=== PATIENT | female | born 1970 | race Caucasian/White ===

== ENCOUNTER 2018-08-09 18:01 | Emergency (ER) | payer SELFPAY ==
[~2018-08-09 18:01] MED LIST: Iopamidol 370 76% 100 ML VIAL ONE
--- NOTE | 2018-08-09 18:32 | RAD ---
ONE VIEW CHEST: 08/09/18 HISTORY: Two days of shortness of breath. COMPARISON: 12/17/06. FINDINGS: Slight elongation of the aorta. Normal cardiac silhouette. The pulmonary vessels and hilum are normal . Costophrenic angles are clear. No mass. No consolidation. No pneumothorax or osseous abnormality. IMPRESSION: No acute cardiopulmonary process. POS: [facility]
[2018-08-09 18:54] LABS: Hemoglobin 15.6 g/dL (12.0-16.0); Mean Corpuscular HGB CONC 34.8 g/dL (32.0-36.0); Mean Corpuscular Hemoglobin 33.6 pg (27.0-31.0); Mean Corpuscular Volume 96.6 fL (78.0-98.0); Mean Platelet Volume 7.7 fL (7.4-10.4); Platelet Count 274 thou/uL (130-400); RBC Distribution Width 12.8 % (11.5-14.5); Red Blood Cell (RBC) Count 4.65 mill/uL (4.20-5.40); White Blood Cell (WBC) Count 15.3 thou/uL (4.8-10.8)
[2018-08-09 19:14] LABS: Band 2 % (5-11); Lymphocytes 33 % (21-51); MDiff Complete? YES; Monocytes 6 % (0-10); Neutrophil 56 % (42-75); Platelet Morphology Comment Appears Adequate; RBC Morphology Normal
[2018-08-09 19:31] LABS: ALT (SGPT) 24 U/L (8-55)
[2018-08-09] MEDS ORDERED: Lorazepam 2 MG/ML VIAL ONE (19:39)
[2018-08-09 19:53] LABS: Amphetamine Not Detected (NotDetected); Barbiturates Screen Not Detected (NotDetected); Benzodiazepine Screen Not Detected (NotDetected); Cocaine Metabolite Screen Not Detected (NotDetected); Medtox Control Line Valid? VALID (VALID); Medtox Reader # READER 4; Methadone Not Detected (NotDetected); Methamphetamine Not Detected (NotDetected); Opiate Screen Detected (NotDetected); Oxycodone Screen Not Detected (NotDetected); Phencyclidine (PCP) Not Detected (NotDetected); THC/Cannabinoid Screen Not Detected (NotDetected); Tricyclic Screen Not Detected (NotDetected)
[2018-08-09 19:53] LABS: AST (SGOT) 39 U/L (5-34); Albumin 4.3 g/dL (3.5-5.0); Alkaline Phosphatase 82 U/L (40-150); Anion Gap 20 mmol/L (10-20); BUN (Urea Nitrogen) 20 mg/dL (7.0-18.7); Bilirubin, Total 0.6 mg/dL (0.2-1.2); Calc. Creatinine Clearance 0 mL/min (70-130); Calcium 10.6 mg/dL (7.8-10.44); Carbon Dioxide 25 mmol/L (22-29); Chloride 95 mmol/L (98-107); Estimated GFR-MDRD 46; Globulin 4.2 g/dL (2.4-3.5); Glucose 115 mg/dL (70-105); Potassium 3.5 mmol/L (3.5-5.1); Protein, Total 8.5 g/dL (6.0-8.3); Sodium 136 mmol/L (136-145)
--- NOTE | 2018-08-09 19:56 | CT ---
CT ANGIOGRAM OF THE CHEST: 08/09/18 HISTORY: Tachycardia and dyspnea. COMPARISON: None. TECHNIQUE: CT angiogram of the chest is performed in the axial plane. Three dimensional reformatted images are s ubmitted for interpretation. FINDINGS: No mediastinal mass, lymphadenopathy or hematoma. Heart size is within normal limits. No pericardial effusion. The descending thoracic aorta and upper abdominal aorta have a normal caliber. No periaorti c fat stranding. The visualized upper solid abdominal viscera is unremarkable. Hepatic steatosis with areas of fatty s paring are suspected. Trachea and central bronchi are patent. No suspicious consolidation, pleural effusions or pneumothorax. 5 mm nodule in the superior segment o f the right lower lobe, 4 mm nodule in the superior segment of the left lower lobe. 7 mm ground glass opacity in the superior segment of the left lower lobe. Adequate contrast opacification of the pulmonary arterial system to the level of the segmental arteri es. No filling defect to suggest thromboembolism. IMPRESSION: 1. No evidence of pulmonary artery embolism. 2. Lung nodule that is described above. Correlation made with a CT from 12/18/06 demonstrates a stable nodule in the superior segment of the r ight lower lobe. Ground glass opacity and nodule in the left lower lobe were not present on a previou s examination. Code LN POS: [facility]
== END 2018-08-09 21:47 | disposition home or self-care (01) ==
LOC: ERS 18:01
DX: F41.9 Anxiety disorder, unspecified (principal); F45.8 Other somatoform disorders; I10 Essential (primary) hypertension; E78.5 Hyperlipidemia, unspecified; F32.9 Major depressive disorder, single episode, unspecified; F17.290 Nicotine dependence, other tobacco product, uncomplicated; Z79.899 Other long term (current) drug therapy
CPT/HCPCS: 71045; 71275; 80053; 80306; 85025; 93005; 96361; 96374; J2060; Q9967

== ENCOUNTER 2019-03-23 18:08 | Inpatient (IN) | payer SELFPAY ==
[2019-03-23 18:58] LABS: #Lymphocytes 3.9 thou/uL (1.20-3.40); #Monocytes 0.7 thou/uL (0.11-0.59); #Neutrophils 4.1 thou/uL (1.40-6.50); %Basophils 0.4 % (0.0-1.0); %Eosinophils 0.2 % (0.0-10.0); %Lymphocytes 44.6 % (21.0-51.0); %Monocytes 7.7 % (0.0-10.0); %Neutrophils 47.1 % (42.0-75.0); Hemoglobin 16.8 g/dL (12.0-16.0); Mean Corpuscular HGB CONC 33.7 g/dL (32.0-36.0); Mean Corpuscular Hemoglobin 34.8 pg (27.0-31.0); Platelet Count 231 thou/uL (130-400); Red Blood Cell (RBC) Count 4.81 mill/uL (4.20-5.40); White Blood Cell (WBC) Count 8.6 thou/uL (4.8-10.8)
[2019-03-23] MEDS ORDERED: Ondansetron PF 4 MG/2 ML Vial ONE (19:04)
[2019-03-23 19:05] LABS: ALT (SGPT) 323 U/L (8-55); AST (SGOT) 635 U/L (5-34); Albumin 3.3 g/dL (3.5-5.0); Alkaline Phosphatase 246 U/L (40-110); Anion Gap 21 mmol/L (10-20); BUN (Urea Nitrogen) 15 mg/dL (7.0-18.7); Bilirubin, Total 3.6 mg/dL (0.2-1.2); Calc. Creatinine Clearance 0 mL/min (70-130); Calcium 9.6 mg/dL (7.8-10.44); Carbon Dioxide 23 mmol/L (22-29); Chloride 89 mmol/L (98-107); Estimated GFR-MDRD 59; Globulin 4.1 g/dL (2.4-3.5); Glucose 110 mg/dL (70-105); Potassium 3.9 mmol/L (3.5-5.1); Protein, Total 7.4 g/dL (6.0-8.3); Sodium 129 mmol/L (136-145)
[2019-03-23 19:19] LABS: Phosphorus 2.8 mg/dL (2.3-4.7)
[2019-03-23 19:33] LABS: CKMB 0.7 ng/mL (0-6.6)
[2019-03-23 19:38] LABS: T4 5.3 ug/dL (4.87-11.72); Thyroid Stimulating Hormone 3.4985 uIU/mL (0.35-4.94)
[2019-03-23] MEDS ORDERED: Promethazine HCl 25 MG/ML VIAL ONE (19:42)
--- NOTE | 2019-03-23 19:50 | RAD ---
PORTABLE CHEST: HISTORY: Tachycardia. COMPARISON: 08/09/2018 FINDINGS: Heart size and mediastinum are within normal limits. The aorta is mildly tortuous. The lungs are shaquille r of infiltrates. No significant bony findings. IMPRESSION: No active intrathoracic disease. POS: [facility]
[2019-03-23 19:58] LABS: Magnesium 1.6 mg/dL (1.6-2.6)
[2019-03-23 20:44] LABS: Bilirubin 1+ (Negative); Blood, Urine Negative (Negative); Clarity Clear (Clear); Glucose, Urine (Dipstick) Normal (Negative); Leukocyte Negative Leu/uL (Negative); Nitrite Negative (Negative); Protein, Urine (Dipstick) 20 mg/dL (Neg-Trace); Urobilinogen Normal mg/dL (Less than 2)
--- NOTE | 2019-03-23 21:04 | CT ---
CT CHEST AND ABDOMEN AND PELVIS: HISTORY: PO intolerance. Concern for cancer. COMPARISON: Radiographs of the chest from the same day. FINDINGS: The lungs are clear. No pneumothorax. No effusion. The shoulders are intact. The sternum and manubrium are intact. The thoracic and lumbar vertebrae are intact. No suspicious osteolytic or osteoblastic lesions. No ac quinten displaced rib fracture. Old left sided rib fractures. No mediastinal adenopathy. No pericardial effusion. Diffuse hepatic steatosis noted. Mild distention of the gallbladder. A few calcified splenic granulom as. The aortoiliac contour is nonaneurysmal. No dilated loops of large or small bowel. No retroperitoneal or periaortic adenopathy. There is a broad-based disk osteophyte complex at L1-L2 causing mild spinal canal narrowing. No hydronephrosis. No abnormal renal enhancing mass. IMPRESSION: 1. Diffuse hepatic steatosis. 2. No acute inflammatory process within the chest, abdomen or pelvis. 3. No evidence for a primary or metastatic malignancy. 4. High grade facet arthrosis of the lower lumbar spine. 5. Interval resolution of the previously described small pulmonary nodules. POS: [facility]
[2019-03-23] MEDS ORDERED: Aspirin Chewable 81 MG TAB ONE (21:16)
[2019-03-24] MEDS ORDERED: Ondansetron PF 4 MG/2 ML Vial IVP PRN (00:04)
[2019-03-24] MEDS ORDERED: Ondansetron ODT 4 MG TAB SL PRN (00:04)
[2019-03-24 00:07] VITALS: BMI 33.2
[2019-03-24] MEDS: Lactated Ringer's 1,000 ML IV SCH ×2 (00:35→09:35)
[2019-03-24 10:58] LABS: ALT (SGPT) 255 U/L (8-55); AST (SGOT) 474 U/L (5-34); Albumin 2.6 g/dL (3.5-5.0); Alkaline Phosphatase 186 U/L (40-110); Anion Gap 14 mmol/L (10-20); BUN (Urea Nitrogen) 10 mg/dL (7.0-18.7); Bilirubin, Total 4.6 mg/dL (0.2-1.2); Calc. Creatinine Clearance 96 mL/min (70-130); Calcium 8.3 mg/dL (7.8-10.44); Carbon Dioxide 27 mmol/L (22-29); Chloride 94 mmol/L (98-107); Estimated GFR-MDRD 56; Globulin 3.2 g/dL (2.4-3.5); Glucose 107 mg/dL (70-105); Potassium 3.9 mmol/L (3.5-5.1); Protein, Total 5.8 g/dL (6.0-8.3); Sodium 131 mmol/L (136-145)
[2019-03-24 13:25] LABS: Prothrombin Time 12.7 SEC (12.0-14.7)
[2019-03-24 13:53] LABS: Acetaminophen Less than 6.0 mcg/mL (10.0-30.0); Alcohol Less than 10 mg/dL (Less than 10); Iron 194 ug/dL (50-170); Iron Binding Capacity, Total 179 mcg/dL (265-497)
[2019-03-24 14:03] LABS: Ferritin 1361.58 ng/mL (10-291)
[2019-03-24 14:16] LABS: HBCM Index 0.06 S/CO (0-0.79); HBSAg Index 0.16 S/CO (0-0.99); Hep A IgM AB Non-Reactive (NonReactive); Hep B Surf Ag Non-Reactive S/CO (NonReactive); Hep C IgG Ab Non-Reactive (NonReactive); Hep C Index 0.14 S/CO (0-0.79); Hepatitis B Core IgM Abs Non-Reactive (NonReactive)
--- NOTE | 2019-03-24 15:44 | ULT ---
EXAM: Abdominal ultrasound complete: HISTORY: Nausea, vomiting, weight loss COMPARISON: Chest abdomen and pelvic CT, 03/23/2019 FINDINGS: Marked fatty changes in the liver with altered echogenicity and liver enlargement. Extensive sludge in the gallbladder with borderline thick walled but negative Raines's sign and no si gnificant pericholecystic fluid. The common bile duct is very poorly seen. No evidence for dilatation. Visualized pancreas: Unremarkable. Visualized abdominal aorta: Unremarkable. Visualized IVC: Unremarkable. Visualized spleen: Unremarkable. Visualized kidneys: No evidence for hydronephrosis or solid or cystic mass. No mass, abscess, adenopathy, or abnormal fluid collection or other acute process. IMPRESSION: Hepatomegaly with marked fatty changes. Prominent sludge in the gallbladder without evidence for gallstones or acute cholecystitis.
--- NOTE | 2019-03-24 16:58 | CON ---
DATE OF CONSULTATION: 03/24/2019 REQUESTING PHYSICIAN: Dr. Leonard. REASON FOR CONSULTATION: Weight loss and p.o. intolerance. HISTORY OF PRESENT ILLNESS: Lily Sanchez is a very pleasant 49-year-old woman with a history significant for hypertension and hyperlipidemia. She has undergone appendectomy and . She has depression. She does vape, but states alcohol use is rare, and she has not had any alcohol anytime recently. About a year ago, she started having gradual decline in appetite and early satiety. With these symptoms and declining oral intake, she has lost 60 to 70 pounds over the past year. Over the past 3-4 months, she has additionally started having postprandial generalized abdominal pain and nausea with early satiety, and for the past few weeks, she has been having vomiting every day. She also describes some dysphagia to solids for the past couple of months, feeling of the food hangs up in the upper esophagus, and she will occasionally regurgitate. She has not had any alcohol recently over this time. She denies any Tylenol use, though she will take ibuprofen occasionally. She has never undergone EGD or colonoscopy. She has never had any liver or gallbladder problems. Upon presentation, a CT of the abdomen and pelvis yesterday demonstrated fatty liver and mild gallbladder distention and diffuse splenic granulomas, but otherwise that was unremarkable. A chest x-ray showed no acute processes. However, her laboratory studies demonstrate significant LFT elevation with total bilirubin up to 4.6, AST 474, and ALT 255. These were slightly down this morning from yesterday. Albumin is only 2.6. An abdominal ultrasound has been ordered, but not yet performed. She currently tolerated a couple of bites of breakfast this morning. REVIEW OF SYSTEMS: Full review of systems including constitutional; head, eyes, ears, nose, and throat; GI; ; cardiovascular; respiratory; musculoskeletal; and neurologic systems is negative except as noted in the HPI. PAST MEDICAL HISTORY: 1. Hypertension. 2. Hyperlipidemia. 3. Appendectomy. 4. . 5. Depression. SOCIAL HISTORY: She does vape. Alcohol use is social, and there has been none recently. No drug use. FAMILY HISTORY: Her half sister has Crohn disease. ALLERGIES: NO KNOWN DRUG ALLERGIES. OUTPATIENT MEDICATIONS: 1. Benadryl 25 mg nightly. 2. Multivitamin daily. 3. Potassium chloride daily. 4. Lipitor 20 mg daily. 5. Amlodipine 10 mg daily. 6. Buspirone 10 mg b.i.d. PHYSICAL EXAMINATION: VITAL SIGNS: Temperature 99.0, pulse 100, blood pressure 117/68, and 93% oxygen saturation on room air. GENERAL: A 49-year-old woman, lying in bed comfortably, in no distress. SKIN: No jaundice. No rashes were palpable. EYES: No scleral icterus. Extraocular movements intact. ENT: Mucous membranes moist. No oral lesions. LYMPH: No submandibular or supraclavicular lymphadenopathy. THYROID: Nontender to palpation. HEART: Regular rate and rhythm. LUNGS: Clear to auscultation bilaterally. ABDOMEN: Nondistended. Bowel sounds are present. Soft. There is tenderness to palpation in the epigastrium and right upper quadrant, but no guarding or rebound tenderness. EXTREMITIES: No peripheral edema. VESSELS: Radial pulses 2+ bilaterally. NEUROLOGIC: Cranial nerves 2 through 12 intact bilaterally. No focal deficits. LABORATORY STUDIES: Total bilirubin was initially 3.6, now up to 4.6; alkaline phosphatase initially 246, now down to 186; AST initially 635, now down to 474; ALT initially 323, now down to 255; albumin is 2.6. BUN 10, creatinine 1.05, glucose 107, sodium 131, and potassium 3.9. WBC 8.6, hemoglobin 16.8, platelets 231, and MCV 103. Troponin 0.045 and CK-MB only 0.7. Urinalysis negative. TSH 3.49. Lipase 59. Looking back LFTs from 07/2018 were normal with just very mild elevation in AST at that time. IMAGING STUDIES: Chest x-ray shows no acute processes. On 03/23/2019, CT of the chest, abdomen, and pelvis demonstrates fatty liver, mild gallbladder distention, diffuse splenic granulomas, lumbar spine facet arthrosis, otherwise unremarkable exam. ASSESSMENT AND PLAN: 1. Elevated liver function tests. 2. Dysphagia. 3. Early satiety. 4. Vomiting. 5. Abnormal weight loss. Her constellation of symptoms is quite concerning. Notably, the CT scan was unrevealing, though I wonder about the mild gallbladder distention. The laboratory studies are significant for liver function test elevation. Consider [id number] cholecystitis, versus more chronic liver disease with compensation. We will await results of upcoming abdominal ultrasound. We will obtain further labs for liver workup, including viral hepatitis serologies, autoimmune markers, iron studies, ceruloplasmin, acetaminophen level, alcohol level. We will also get urine drug screen. Trend the LFTs daily. If the abdominal ultrasound is unremarkable and labs otherwise unrevealing, we could potentially consider bowel prep tomorrow for EGD and colonoscopy the following day. If it appears that she does have cholecystitis or other biliary abnormality, she might need surgical consultation. Thank you for the consultation. Please call anytime with questions or concerns. Job ID: [id number]
[2019-03-24 18:31] LABS: Troponin I Less than 0.010 ng/mL (< 0.028)
[2019-03-24 18:52] LABS: Amphetamine Not Detected (NotDetected); Barbiturates Screen Not Detected (NotDetected); Benzodiazepine Screen Detected (NotDetected); Cocaine Metabolite Screen Not Detected (NotDetected); Medtox Control Line Valid? VALID (VALID); Medtox Reader # READER 1; Methadone Not Detected (NotDetected); Methamphetamine Not Detected (NotDetected); Opiate Screen Not Detected (NotDetected); Oxycodone Screen Not Detected (NotDetected); Phencyclidine (PCP) Not Detected (NotDetected); THC/Cannabinoid Screen Not Detected (NotDetected); Tricyclic Screen Not Detected (NotDetected)
--- NOTE | 2019-03-24 19:14 | HP ---
CHIEF COMPLAINT: Nausea, vomiting, and not eating well, weight loss. HISTORY OF PRESENT ILLNESS: Ms. Sanchez is a 49-year-old female with past medical history of hypertension, anxiety disorder, came because of nausea and vomiting, which started recently and got worse to the point she is unable to keep anything down. The patient also says she has not been eating well for last one year, has lost weight gradually. Now, she did not have an abdominal pain, no fever, no headache. Feels weak secondary to not eating. The patient tried to eat and everything will come back up, so the patient came to the hospital. In the ER, the patient was seen and found to have sinus tachycardia as well as intractable nausea and vomiting. Initial CT scan of the abdomen did not reveal any pathology. The patient was also found to have markedly elevated LFTs, so the patient to was given IV fluid bolus and Phenergan. Admitted for further evaluation and management. The patient also had indeterminate troponin I. PAST MEDICAL HISTORY: 1. Hypertension. 2. Hyperlipidemia. 3. Anxiety disorder. 4. Weight loss. PAST SURGICAL HISTORY: Status post appendectomy, status post . CURRENT MEDICATIONS: The patient is on: 1. Benadryl 25 mg at bedtime p.r.n. 2. KCl 10 mEq daily. 3. Lipitor 20 mg at bedtime. 4. Amlodipine 10 mg daily. 5. BuSpar 10 mg b.i.d. ALLERGIES: NKDA. FAMILY HISTORY: Nothing contributory. SOCIAL HISTORY: Lives at home with family. No history of smoking. Drinks socially. REVIEW OF SYSTEMS: Unremarkable except for the nausea, vomiting, and weight loss. PHYSICAL EXAMINATION: GENERAL: The patient is alert, awake, oriented x3. VITAL SIGNS: Temperature 98, pulse 97, respiratory rate 20, blood pressure 100/ 60. HEENT: Head is normocephalic, atraumatic. Pupils are equal and reacting to light. NECK: Supple. No JVD. LUNGS: Bilateral air entry. No rales, no rhonchi. HEART: S1 and S2, regular. ABDOMEN: Soft. No distention. No tenderness. No organomegaly. Bowel sounds present. RECTAL: Deferred. CENTRAL NERVOUS SYSTEM: No focal deficits. LABORATORY DATA: CBC shows WBC 8.6, hemoglobin 16, hematocrit 49, platelets 231. Metabolic panel; sodium 129, potassium 3.9, chloride 89, CO2 of 23, BUN 10, creatinine 1, glucose 110. Troponin I 0.045. AST of 635, ALT 323, alkaline phos 246, total bilirubin 3.6. TSH was 3.49. Serum lipase 59. Urinalysis is negative. CT scan of the abdomen and pelvis unremarkable except hepatic steatosis andgallbladder sludge but no cholecystitis. Chest x-ray negative. EKG shows sinus tachycardia with heart rate of 100. No acute ST-T changes seen. ASSESSMENT: 1. Intractable nausea and vomiting. 2. Dysphagia. 3. Elevated liver function tests. 4. Fatty liver. 5. Protein calorie malnutrition with significant weight loss. 6. Hypertension by history. 7. Anxiety disorder. PLAN: 1. Vital signs q.4 hours. 2. Activity as tolerated. 3. Allergies, NKDA. 4. IV fluids, D5 half at 80 mL/h. 5. Continue home medications except BP medications. 6. Diet, n.p.o. after midnight. 7. Zofran p.r.n. 8. GI consult. Job ID: [id number] [facility]
[2019-03-24] MEDS: Dextrose 5 %-0.45 % NaCl 1,000 ML IV SCH (19:19)
[2019-03-24] MEDS: Ondansetron PF 4 MG/2 ML Vial SLOW IVP PRN (19:46)
[2019-03-24] MEDS: diphenhydrAMINE 25 MG CAP PO SCH (19:47)
[2019-03-24] MEDS: busPIRone HCl 10 MG TAB PO SCH (19:47)
[2019-03-24] MEDS: Atorvastatin Calcium 20 MG TAB PO SCH (19:47)
[2019-03-24 22:23] LABS: Troponin I 0.023 ng/mL (< 0.028)
[2019-03-25 06:13] LABS: ALT (SGPT) 220 U/L (8-55); AST (SGOT) 367 U/L (5-34); Albumin 2.5 g/dL (3.5-5.0); Alkaline Phosphatase 192 U/L (40-110); Anion Gap 13 mmol/L (10-20); BUN (Urea Nitrogen) 7 mg/dL (7.0-18.7); Calc. Creatinine Clearance 98 mL/min (70-130); Calcium 8.3 mg/dL (7.8-10.44); Carbon Dioxide 28 mmol/L (22-29); Chloride 100 mmol/L (98-107); Estimated GFR-MDRD 58; Globulin 2.9 g/dL (2.4-3.5); Glucose 124 mg/dL (70-105); Potassium 3.7 mmol/L (3.5-5.1); Protein, Total 5.4 g/dL (6.0-8.3); Sodium 137 mmol/L (136-145)
[2019-03-25 06:14] LABS: Lymphocytes 37 % (21-51); MDiff Complete? YES; Macrocytosis SLIGHT = 6-15 cells (100X) (0-5/hpf); Mean Corpuscular HGB CONC 33.9 g/dL (32.0-36.0); Mean Corpuscular Hemoglobin 35.7 pg (27.0-31.0); Mean Platelet Volume 8.1 fL (7.4-10.4); Monocytes 4 % (0-10); Neutrophil 59 % (42-75); Platelet Count 132 thou/uL (130-400); Platelet Morphology Comment Appears Adequate; RBC Distribution Width 12.8 % (11.5-14.5); Red Blood Cell (RBC) Count 3.65 mill/uL (4.20-5.40); White Blood Cell (WBC) Count 4.2 thou/uL (4.8-10.8)
[2019-03-25] MEDS: Dextrose 5 %-0.45 % NaCl 1,000 ML IV SCH ×2 (09:16→11:55)
[2019-03-25] MEDS: busPIRone HCl 10 MG TAB PO SCH ×2 (11:54→21:55)
--- NOTE | 2019-03-25 12:02 | NM ---
HEPATOBILIARY SCAN: HISTORY: Nausea and vomiting. Elevated LFTs. COMPARISON: No gallstones on ultrasound from the previous day. RADIOPHARMACEUTICAL: Technetium 99m mebrofenin 5 millicuries injected intravenously. FINDINGS: There is good tracer extraction by the liver with prompt excretion of the biliary tract and small bow el loops. The calculated gallbladder ejection fraction following a 30 minute, slow IV infusion of 1.8 mcg CCK m easured 6%. The patient was also pre-treated with 1.8 mcg of CCK 30 minutes prior to the injection of the radioph armaceutical. IMPRESSION: Chronic acalculous cholecystitis/gallbladder dyskinesia. POS: [facility]
--- NOTE | 2019-03-25 15:00 | PRG ---
DATE OF SERVICE: 03/25/2019 SUBJECTIVE: Ms. Sanchez is doing okay. She is tolerating a liquid diet. Yesterday's abdominal ultrasound demonstrated significant biliary sludge, though no cholelithiasis. No biliary dilation. There is some mild gallbladder thickening. HIDA scan from earlier today demonstrated low gallbladder ejection fraction of only 6% and the patient had significant pain with cholecystokinin administration. OBJECTIVE: VITAL SIGNS: Temperature 98.2, pulse 73, blood pressure 121/75, and 96% oxygen saturation on room air. GENERAL: No acute distress. HEART: Regular rate and rhythm. LUNGS: Clear to auscultation bilaterally. ABDOMEN: Bowel sounds present, soft, some mild tenderness to palpation in the upper abdomen. No guarding, rebound tenderness. EXTREMITIES: No peripheral edema. LABORATORY STUDIES: WBC down to 4.2, hemoglobin 13.0, platelets 132. INR 1.0. Sodium 137, potassium 3.7, BUN 7, creatinine 1.02, glucose 124, total bilirubin stable at 5.0, alkaline phosphatase down to 192, AST down to 367, ALT down to 220. Troponin 0.02. Albumin 2.5, ferritin is , iron 194, TIBC 179. Acetaminophen level is undetectable. Plasma alcohol level was undetectable. Urine tox screen is positive for benzodiazepines. Total IgG is normal at 1465. Viral hepatitis serologies are negative. Autoimmune markers are still pending. ASSESSMENT/PLAN: 1. Chronic cholecystitis with biliary sludge. 2. Elevated LFTs. 3. Chronic nausea and vomiting. This is a somewhat atypical presentation, but the labs and imaging results are all suggestive of chronic cholecystitis and biliary dyskinesia. I would recommend general surgical consultation for consideration of cholecystectomy. Intraoperative cholangiogram could be performed during surgery to assure no choledocholithiasis, though there appears to be no evidence of biliary dilation on current imaging. I think it would also be reasonable to obtain intraoperative liver biopsy, depending on operative findings, particularly if the gallbladder does not appear to inflamed. We are still waiting on autoimmune markers, but viral hepatitis serologies are negative. Job ID: [id number]
[2019-03-25] MEDS: Acetaminophen 325 MG TAB PO PRN (15:32)
[2019-03-25] MEDS: Ondansetron PF 4 MG/2 ML Vial SLOW IVP PRN (15:32)
--- NOTE | 2019-03-25 17:48 | CON ---
DATE OF CONSULTATION: 03/25/2019 CHIEF COMPLAINT: Nausea, vomiting, and abdominal pain. HISTORY OF PRESENT ILLNESS: This is a 49-year-old female, who was admitted to the medical service with a history of nausea, vomiting, elevated liver function tests. Dr. Reeder was consulted. Her workup has included negative hepatitis panel, negative abdominal ultrasound. She had a HIDA scan today, which showed low ejection fraction, but good uptake in the biliary tract all the way to the duodenum without obvious obstruction. Her bilirubin is up to 5. She gives no previous known history of liver disease, hepatitis. She notes occasional upper abdominal pain after greasy foods, but nothing severe. She has had significant weight loss of 70 pounds in the last year and states that she has early satiety. This has become more severe with nausea and vomiting in the last month. MEDICAL HISTORY: Hypertension, hyperlipidemia, and anxiety. SURGICAL HISTORY: Appendectomy and C-sections. MEDICINES: , Lipitor, amlodipine, and BuSpar. ALLERGIES: NO KNOWN DRUG ALLERGIES. SOCIAL HISTORY: Drinks occasionally. No smoking. REVIEW OF SYSTEMS: Ten-system review of systems is otherwise negative unless described above. PHYSICAL EXAMINATION: VITAL SIGNS: Blood pressure is 116/74, pulse 85, respirations 16. She is afebrile. HEENT: Sclerae anicteric. Oropharynx clear. NECK: No lymphadenopathy. CHEST: Clear. HEART: Regular rate and rhythm. ABDOMEN: Soft. No significant tenderness. She guards a little bit in the right upper quadrant. No abdominal or inguinal hernias. EXTREMITIES: No ischemia or edema to extremities. LABORATORY DATA: White cell count is 4, hemoglobin 13, platelet count is 132. Sodium 137, potassium 3.7, creatinine 1, bilirubin is 5, AST and ALT are 367 and 220, alkaline phosphatase is 192. Lipase was normal on 03/23 at 59. Ultrasound, no gallstones. CT scan chest, abdomen, and pelvis revealed enlarged liver. No obvious intraabdominal pathology. Ultrasound, no gallstones. HIDA scan, low ejection fraction with reproduction of symptoms. ASSESSMENT: 1. Chronic illness associated with nausea, vomiting, early satiety, weight loss. 2. Abnormal HIDA scan with low ejection fraction and symptoms of right upper quadrant and flank pain during the test. 3. Elevation of transaminases and bilirubin. PLAN: Without gallstones, I am not certain she has biliary tract obstruction. Wonder if this is more related to a primary liver dysfunction. However, given her abnormal HIDA scan and reproduction of symptoms, we will plan a laparoscopic cholecystectomy tomorrow with cholangiogram to rule out posthepatic obstruction, could also perform liver biopsy at the time of surgery, planned this tomorrow. Job ID: [id number]
[2019-03-25] MEDS: Atorvastatin Calcium 20 MG TAB PO SCH (21:55)
[2019-03-25] MEDS: diphenhydrAMINE 25 MG CAP PO SCH (21:55)
[2019-03-26] MEDS: Acetaminophen 325 MG TAB PO PRN (07:36)
[2019-03-26] MEDS: busPIRone HCl 10 MG TAB PO SCH ×2 (08:39→20:28)
[2019-03-26] MEDS: Dextrose 5 %-0.45 % NaCl 1,000 ML IV SCH (08:49)
[2019-03-26] MEDS ORDERED: Bupivacaine HCl 0.25%/Epi 0.0005/PF 10 ML VIAL FS ONE (10:13)
[2019-03-26] MEDS ORDERED: Iothalamate Meglumine 60% 50 ML VIAL FS ONE (10:13)
[2019-03-26] MEDS ORDERED: Glycopyrrolate 0.2 MG/ML 5 ML SYRINGE ONE (10:30)
[2019-03-26] MEDS ORDERED: Ketorolac Tromethamine 30 MG/ML VIAL ONE (10:30)
[2019-03-26] MEDS ORDERED: Rocuronium Bromide 10 MG/ML (10ML VIAL) ONE (10:30)
[2019-03-26] MEDS ORDERED: PROPOFOL 200 MG/20 ML VIAL ONE (10:30)
[2019-03-26] MEDS ORDERED: Dexamethasone 20 MG/5 ML VIAL ONE (10:30)
[2019-03-26] MEDS ORDERED: Ondansetron PF 4 MG/2 ML Vial ONE (10:30)
[2019-03-26] MEDS ORDERED: Succinylcholine Chloride 20 MG/ML 10 ml SYRINGE FS ONE (10:30)
[2019-03-26] MEDS ORDERED: Lidocaine 1% PF 5 ML VIAL ONE (10:30)
[2019-03-26] MEDS ORDERED: Fentanyl 100 MCG/2 ML VIAL ONE ×2 (10:37→12:14)
[2019-03-26] MEDS ORDERED: cefOXitin 2 GM VIAL ONE (10:52)
[2019-03-26] MEDS ORDERED: Sodium Chloride 0.9% 100 ML ONE (10:52)
--- NOTE | 2019-03-26 11:50 | RAD ---
XR Cholangiogram in Surgery History: Intraoperative cholangiogram Comparison: CT exam March 23, 2019 Findings: 2 images were obtained during intraoperative cholangiogram. Adequate distention of the bili jessika system. Normal appearance of the common bile duct and pancreatic duct. Impression: Fluoroscopy for surgical use.
[2019-03-26] MEDS ORDERED: hydrALAZINE 20 MG/ML VIAL SLOW IVP PRN (11:53)
[2019-03-26] MEDS ORDERED: Mag-Al 1200 mg/1200 mg/30 ML UDCUP PO PRN (11:53)
[2019-03-26] MEDS ORDERED: Promethazine HCl 25 MG/ML VIAL IM PRN (11:53)
[2019-03-26] MEDS ORDERED: Dextrose 5% in Water 1,000 ML IV PRN (11:53)
[2019-03-26] MEDS ORDERED: Dextrose 50% Abboject 50 ML SYRINGE SLOW IVP PRN (11:53)
[2019-03-26] MEDS ORDERED: Fentanyl 100 MCG/2 ML VIAL SLOW IVP PRN ×2 (11:53)
[2019-03-26] MEDS ORDERED: Calcium Carbonate 500 MG ChewTAB PO PRN (11:53)
[2019-03-26] MEDS ORDERED: HYDROcodone/Acetaminophen 7.5/325 mg Tablet PO PRN (11:53)
--- NOTE | 2019-03-26 12:03 | OP ---
DATE OF PROCEDURE: 03/26/2019 PREOPERATIVE DIAGNOSES: History of chronic cholecystitis based on HIDA scan, history of elevation of liver tests and history of enlarged liver on CT scan. PROCEDURES PERFORMED: 1. Laparoscopic cholecystectomy with intraoperative cholangiogram. 2. Laparoscopic percutaneous liver biopsy. ANESTHESIA: General. ESTIMATED BLOOD LOSS: Minimal. COMPLICATIONS: None. SPECIMEN: Gallbladder and liver core x3. FINDINGS: Normal cholangiogram. DESCRIPTION OF PROCEDURE: The patient was taken to the operating room and placed supine on the table. After general anesthesia was obtained, the abdomen was prepped and draped in a sterile fashion. A curved incision was made below the umbilicus, cautery dissect down to and score the fascia. Abdominal cavity was entered bluntly using a Christina clamp. Holding stitch of PDS was placed on each side of the fascia. Omid trocar was placed. High-flow pneumoperitoneum was obtained. Upper midline 5 mm port and 2 right upper quadrant 5 mm ports were placed under direct visualization. The gallbladder was retracted from the gallbladder fossa and the peritoneum was opened anteriorly and posteriorly. The critical view of triangle was seen showing only the cystic artery and cystic duct branching medial to lateral, no other branching structures. A clip was placed on the cystic duct. A small ductotomy was made just proximal to that. A cholangiocatheter was brought in through a separate stab incision and placed in the cystic duct and a cholangiogram was performed, which showed good contrast flow into the duodenum, right and left hepatic duct system without obstruction. No obvious filling defects in the common bile duct. Cholangiocatheter was removed and 2 clips were placed proximally on the cystic duct and 1 distally. It was cut using laparoscopic scissors. Cystic artery was taken in the same way. Cautery was used to dissect the gallbladder off the gallbladder fossa. Gallbladder was placed in EndoCatch bag and brought out through the Omid. The percutaneous liver biopsy core was performed x3. The biopsy sites were cauterized until there was no bleeding. There was no ongoing bleeding in the upper abdomen. The right upper abdomen was irrigated. All port sites were infiltrated using local anesthetic. All ports were removed under camera visualization. Pneumoperitoneum was let down. The PDS was used to close the fascial defect below the umbilicus. All incisions were irrigated and closed using 4-0 Monocryl and Dermabond. The patient was sent to Recovery in stable condition. All instrument counts, needle counts and lap counts are correct. Job ID: [id number]
[2019-03-26] MEDS ORDERED: Ondansetron HCl/PF 4 MG/2 ML Vial IVP PRN (12:04)
[2019-03-26] MEDS ORDERED: HYDROcodone/Acetaminophen 7.5/325 mg Tablet ONE (14:52)
--- NOTE | 2019-03-26 15:15 | PRG ---
DATE OF SERVICE: 03/26/2019 SUBJECTIVE: Ms. Sanchez underwent uneventful laparoscopic cholecystectomy with intraoperative liver biopsy and negative intraoperative cholangiogram earlier today with Dr. Acuna. The procedure evidently went well. Per Dr. Acuna, the gallbladder did not really look very inflamed. The patient is now recovering comfortably. OBJECTIVE: VITAL SIGNS: Temperature 98.2, pulse 81, blood pressure 126/81, and 96% oxygen saturation on room air. GENERAL: No acute distress. HEART: Regular rate and rhythm. LUNGS: Clear to auscultation bilaterally. ABDOMEN: Bowel sounds are hypoactive, but present. Soft and nontender to palpation. Incisions look good. EXTREMITIES: No peripheral edema. LABORATORY STUDIES: Total IgG is only 1465. ASMA came back and is only 8. Viral hepatitis serology is negative. Plasma alcohol and acetaminophen levels are negative. Urine tox screen is positive only for benzodiazepines. CMP was from yesterday showing total bilirubin 5.0, alkaline phosphatase 192, AST 367, ALT 220. Ceruloplasmin was mildly low at 16.6, ferritin elevated to , iron high at 194, TIBC low at 179. INR only 1.0. Hemoglobin 13, WBC 4.2, MCV 105, and platelets 132. ASSESSMENT/PLAN: 1. Chronic cholecystitis with biliary sludge. The patient is now status post cholecystectomy with negative intraoperative cholangiogram. 2. Elevated LFTs. Per Surgical Service, the gallbladder really did not look that inflamed. It is unclear whether we can attribute the degree of her LFT elevation and symptomatic presentation to her chronic cholecystitis. I note the elevated iron studies and borderline ceruloplasmin. Still awaiting autoimmune markers. I appreciate Dr. Acuna's assistance in getting intraoperative liver biopsy as well, which should be most helpful. 3. Chronic nausea and vomiting. 4. Abnormal weight loss. We will see how the patient does symptomatically following cholecystectomy. We will follow LFTs tomorrow. If the patient's symptoms are persistent and labs are not downtrending nicely, we may need to try to get EGD and colonoscopy done prior to hospital discharge. Job ID: [id number]
[2019-03-26 15:38] LABS: ANA Symphony (Qualitative) Negative (Negative); ANA Symphony (Quantitative) 0.2 Ratio (< 0.7 Negative); EliA Vaculitis New Method **** NEW METHOD ****; Mitochondrial Ab 0.9 U/mL (<4 Negative); dsDNA IgG Antibody 1.6 IU/mL (<10 Negative)
[2019-03-26] MEDS: Sodium Chloride 0.9% 1,000 ML IV SCH (17:34)
[2019-03-26] MEDS: Famotidine/PF 20 mg/2ml Vial SLOW IVP SCH (20:26)
[2019-03-26] MEDS: Famotidine 20 MG TAB PO SCH (20:28)
[2019-03-26] MEDS: HYDROcodone/Acetaminophen 7.5/325 mg Tablet PO PRN (20:59)
[2019-03-27] MEDS: Ondansetron PF 4 MG/2 ML Vial IVP PRN ×4 (00:53→20:55)
[2019-03-27] MEDS: Sodium Chloride 0.9% 1,000 ML IV SCH (00:57)
[2019-03-27 04:48] LABS: #Lymphocytes 1.4 thou/uL (1.20-3.40); #Monocytes 0.3 thou/uL (0.11-0.59); #Neutrophils 6.4 thou/uL (1.40-6.50); %Basophils 0.3 % (0.0-1.0); %Eosinophils 0.2 % (0.0-10.0); %Lymphocytes 16.8 % (21.0-51.0); %Monocytes 3.9 % (0.0-10.0); %Neutrophils 78.8 % (42.0-75.0); Hemoglobin 13.8 g/dL (12.0-16.0); Mean Corpuscular HGB CONC 33.1 g/dL (32.0-36.0); Mean Corpuscular Hemoglobin 35.2 pg (27.0-31.0); Mean Platelet Volume 8.2 fL (7.4-10.4); Platelet Count 128 thou/uL (130-400); RBC Distribution Width 13.2 % (11.5-14.5); Red Blood Cell (RBC) Count 3.92 mill/uL (4.20-5.40); White Blood Cell (WBC) Count 8.1 thou/uL (4.8-10.8)
[2019-03-27 05:13] LABS: ALT (SGPT) 236 U/L (8-55); AST (SGOT) 304 U/L (5-34); Albumin 3.1 g/dL (3.5-5.0); Alkaline Phosphatase 279 U/L (40-110); Anion Gap 13 mmol/L (10-20); BUN (Urea Nitrogen) 4 mg/dL (7.0-18.7); Bilirubin, Total 4.9 mg/dL (0.2-1.2); Calc. Creatinine Clearance 117 mL/min (70-130); Calcium 8.6 mg/dL (7.8-10.44); Carbon Dioxide 25 mmol/L (22-29); Chloride 101 mmol/L (98-107); Estimated GFR-MDRD 70; Globulin 3.6 g/dL (2.4-3.5); Glucose 131 mg/dL (70-105); Potassium 3.5 mmol/L (3.5-5.1); Protein, Total 6.7 g/dL (6.0-8.3); Sodium 135 mmol/L (136-145)
[2019-03-27] MEDS: Famotidine 20 MG TAB PO SCH ×2 (08:00→22:00)
[2019-03-27] MEDS: HYDROcodone/Acetaminophen 7.5/325 mg Tablet PO PRN ×3 (08:00→21:59)
[2019-03-27] MEDS: busPIRone HCl 10 MG TAB PO SCH ×2 (08:00→22:00)
[2019-03-27] MEDS: Famotidine/PF 20 mg/2ml Vial SLOW IVP SCH ×2 (08:03→22:00)
--- NOTE | 2019-03-27 10:15 | PRG ---
DATE OF SERVICE: 03/27/2019 SUBJECTIVE: Daniel is postoperative day #1, laparoscopic cholecystectomy, liver biopsy. Ms. Sanchez is doing well. She had nausea the first they gave her the [place], it has improved now. Her abdomen is soft and nontender. Wounds are healing well. ASSESSMENT: Postoperative day #1, laparoscopic cholecystectomy with negative cholangiogram, liver biopsy. PLAN: Continue to advance diet. Mobilize today. Suspect she will be ready to go home tomorrow. Job ID: [id number]
--- NOTE | 2019-03-27 15:09 | PRG ---
DATE OF SERVICE: 03/27/2019 SUBJECTIVE: Ms. Sanchez had some significant nausea and generalized abdominal discomfort last night, but this is much improved today. She is tolerating her lunch just fine. She passed some gas, no current abdominal pain or nausea. OBJECTIVE: VITAL SIGNS: Temperature 98.5, pulse 89, blood pressure 138/92, 96% oxygen saturation on room air. GENERAL: No acute distress. HEART: Regular rate and rhythm. LUNGS: Clear to auscultation bilaterally. ABDOMEN: Mild distention, tympanitic. Bowel sounds are present, though hypoactive. Soft. Some tenderness to palpation in the right upper quadrant, but no guarding or rebound tenderness. EXTREMITIES: No peripheral edema. LABORATORY STUDIES: Viral hepatitis serologies all negative. LOCO negative. ASMA negative. AMA negative. Total IgG is normal at 1465. Plasma alcohol and acetaminophen levels negative. Urine toxicology screen positive only for benzodiazepines. Sodium 135, potassium 3.5, BUN 4, creatinine 0.86. LFTs are stable, but elevated. Total bilirubin 4.9, alkaline phosphatase 279, AST 304, ALT 236, albumin 3.1, ceruloplasmin 16.6, ferritin 1361.58, iron 194, TIBC 179. INR 1.0. Hemoglobin 13.8, WBC 8.1, platelets 128. Pathology specimens from her surgery yesterday, the gallbladder appeared unremarkable with no significant inflammatory infiltrates. The liver core biopsies were read as diffuse steatosis, predominantly macrovesicular type with no significant inflammation or activity, and only mild focal portal fibrosis, stage 1/4. This was read as most consistent with PICKETT. ASSESSMENT AND PLAN: 1. Biliary dyskinesia, now status post cholecystectomy, postoperative day 1. 2. Nausea and vomiting. The patient has had improvement in symptoms today after a rough night last night. She is tolerating her diet currently. No current dysphagia symptoms. If she continues to tolerate her diet and is feeling well tomorrow morning, no barriers to hospital discharge from a GI perspective. 3. Elevated LFTs. 4. Nonalcoholic steatohepatitis. The liver biopsies are demonstrating only nonalcoholic steatohepatitis with minimal active inflammation and only stage 1 fibrosis. This is good news. I am going to have my office work on sending the liver pathology slides for second pathologist opinion, as is our usual policy. We will plan to see her back in clinic in the next couple of weeks to recheck LFTs and symptoms, follow up on the liver pathology as well. At some point, we will likely proceed with EGD and colonoscopy on an outpatient basis in the next few months. Again, okay for hospital to discharge from a GI perspective, if she is doing well tomorrow morning. Job ID: [id number]
[2019-03-28 06:04] LABS: #Basophils 0.1 thou/uL (0.0-0.2); #Eosinphils 0.1 thou/uL (0.0-0.7); #Lymphocytes 2.6 thou/uL (1.20-3.40); #Monocytes 0.4 thou/uL (0.11-0.59); #Neutrophils 3.7 thou/uL (1.40-6.50); %Eosinophils 1.3 % (0.0-10.0); %Lymphocytes 37.7 % (21.0-51.0); %Monocytes 5.7 % (0.0-10.0); %Neutrophils 54.4 % (42.0-75.0); Hemoglobin 12.2 g/dL (12.0-16.0); Mean Corpuscular HGB CONC 33.1 g/dL (32.0-36.0); Mean Corpuscular Hemoglobin 35.6 pg (27.0-31.0); Mean Platelet Volume 8.2 fL (7.4-10.4); Platelet Count 128 thou/uL (130-400); RBC Distribution Width 13.6 % (11.5-14.5); Red Blood Cell (RBC) Count 3.42 mill/uL (4.20-5.40); White Blood Cell (WBC) Count 6.8 thou/uL (4.8-10.8)
[2019-03-28 06:26] LABS: ALT (SGPT) 178 U/L (8-55); AST (SGOT) 180 U/L (5-34); Albumin 2.9 g/dL (3.5-5.0); Alkaline Phosphatase 220 U/L (40-110); Anion Gap 10 mmol/L (10-20); BUN (Urea Nitrogen) 5 mg/dL (7.0-18.7); Bilirubin, Total 3.8 mg/dL (0.2-1.2); Calc. Creatinine Clearance 102 mL/min (70-130); Calcium 8.4 mg/dL (7.8-10.44); Carbon Dioxide 30 mmol/L (22-29); Chloride 103 mmol/L (98-107); Estimated GFR-MDRD 60; Globulin 3.1 g/dL (2.4-3.5); Glucose 105 mg/dL (70-105); Potassium 3.2 mmol/L (3.5-5.1); Sodium 140 mmol/L (136-145)
[2019-03-28] MEDS ORDERED: Potassium Chloride 20 MEQ TAB PO SCH ×2 (08:45→12:30)
[2019-03-28] MEDS: Ondansetron PF 4 MG/2 ML Vial IVP PRN (08:55)
[2019-03-28] MEDS: busPIRone HCl 10 MG TAB PO SCH (08:55)
[2019-03-28] MEDS: Famotidine 20 MG TAB PO SCH (08:55)
[2019-03-28] MEDS: HYDROcodone/Acetaminophen 7.5/325 mg Tablet PO PRN (08:56)
[2019-03-28] MEDS: Famotidine/PF 20 mg/2ml Vial SLOW IVP SCH (09:01)
--- NOTE | 2019-03-28 09:25 | PDOC.GSPN ---
Surgery Progress Note: Subj - Subjective Narrative: Patient crying, anxious this am Surgery Progress Note: Obj - Vital signs Vital signs: Vital Signs - Most Recent Temp Pulse Resp BP Pulse Ox 98.2 F 69 18 139/87 93 L 03/28/19 07:44 03/28/19 07:44 03/28/19 07:44 03/28/19 07:44 03/28/19 07:44 - Physical Exam General: no distress Cardiovascular: regular rate and rhythm Respiratory: clear to auscultation Abdomen: soft, appropriately tender Wound: healing well Surgery Progress Note: Results - Labs Result Diagrams: 03/28/19 05:21 03/28/19 05:21 Lab results: Laboratory Results - last 24 hr 03/28/19 03/28/19 05:21 05:21 WBC 6.8 RBC 3.42 L Hgb 12.2 Hct 36.8 MCV 108.0 H MCH 35.6 H MCHC 33.1 RDW 13.6 Plt Count 128 L MPV 8.2 Neutrophils % 54.4 Lymphocytes % 37.7 Monocytes % 5.7 Eosinophils % 1.3 Basophils % 1.0 Neutrophils # 3.7 Lymphocytes # 2.6 Monocytes # 0.4 Eosinophils # 0.1 Basophils # 0.1 Sodium 140 Potassium 3.2 L Chloride 103 Carbon Dioxide 30 H Anion Gap 10 BUN 5 L Creatinine 0.98 Estimated GFR (MDRD) 60 Glucose 105 Calcium 8.4 Total Bilirubin 3.8 H AST 180 H ALT 178 H Alkaline Phosphatase 220 H Serum Total Protein 6.0 Albumin 2.9 L Globulin 3.1 Albumin/Globulin Ratio 0.9 L Surgery Progress Note: A/P - Problem (1) Chronic cholecystitis Current Visit: Yes Code(s): K81.1 - CHRONIC CHOLECYSTITIS Status: Acute - Plan Plan: s/p lap real, negative cholangiogram -[facility] -F/U Dr. Reeder for liver biopsy results and recheck -f/u 2 weeks
[2019-03-28 12:09] VITALS: BP 130/83; TEMP 98.4
--- NOTE | 2019-03-31 09:55 | PQF ---
Lily Sanchez VENKAT R MD [id number] CLINICAL DOCUMENTATION CLARIFICATION FORM: POST DISCHARGE Addendum to original discharge summary date: ____ Late entry note date: __ Date:03/31/2019 ATTN: DENYS SANDOVAL MD Please exercise your independent, professional judgment in responding to the clarification form. Clinical indicators are provided on the bottom of this form for your review Please check appropriate box(s): [ y ] Protein Calorie Malnutrition: [ ] Mild [ y Moderate [ ] Severe [ ] Other diagnosis [ ] Unable to determine CLINICAL INDICATORS - SIGNS / SYMPTOMS / LABS - Protein calorie malnutrition with significant weight loss- H&P, 03/23, DENYS SANDOVAL MD - Dysphagia-H&P, 03/23, DENYS SANDOVAL MD - Intractable nausea and vomiting-H&P, 03/23, DENYS SANDOVAL MD - Total Protein: 5.4L- Laboratory, 03/25 - Albumin: 2.9L, 2.6L-Laboratory, 03/24 - Current BMI: 33.2- FNS assessment, 03/25 RISK FACTORS - Hx of chronic cholecystitis- OP note, 03/26, Armand Kennedy MD - Laparoscopic cholecystectomy-OP note, 03/26, Armand Kennedy MD TREATMENT: -Sodium chloride.IV-JUL, 03/26 - Mv-Mn-Folic acid/calcium/vit K-Tablet- JUL, home Meds, 03/24 Moderate Malnutrition (in acute illness) Energy Intake: <75% of estimated energy requirement for > 7 days Weight Loss: 1-2%/1 week; 5%/ 1 month; 7.5%/3 months Other: mild body fat loss; mild muscle mass loss; mild fluid accumulation; Severe Malnutrition (in acute illness) Energy Intake: < 50% of estimated energy requirement for > 5 days Weight Loss: >1-2%/1 week; >5%/1 month; >7.5%/3 months Other: moderate body fat loss; moderate muscle mass loss; moderate- severe fluid accumulation; measurably reduced cutter tender strength Moderate Malnutrition (in chronic illness) Energy Intake: <75% of estimated energy requirement for >1 month Weight Loss: 5%/1 month; 7.5%/3 months; 10%/6 months; 20%/1 year Other: mild body fat loss; mild muscle mass loss; mild fluid accumulation Severe Malnutrition (in chronic illness) Energy Intake: <75% of estimated energy requirement for >1 month Weight Loss: >5%/1 month; >7.5%/3 months; >10%/6 months; >20%/1 year Other: severe body fat loss; severe muscle mass loss; severe fluid accumulation ; measurably reduced cutter tender strength (This form is maintained as a part of the permanent medical record) 2014 [employer]. All Rights Reserved Clarisse Renner [not provided] [not provided] BRITTANY
== END 2019-03-28 14:40 | disposition home or self-care (01) | DRG 418 ==
LOC: ERS 18:08 → 2NO 23:56 → SURG B 03-26 16:25
PROVIDERS: ADMIT Internal Medicine; ATTEND Internal Medicine
PROC: 0FT44ZZ Resection of Gallbladder, Percutaneous Endoscopic Approach (ICD-10-PCS; principal; 2019-03-26)
PROC: 0FB04ZX Excision of Liver, Percutaneous Endoscopic Approach, Diagnostic (ICD-10-PCS; 2019-03-26)
PROC: BF131ZZ Fluoroscopy of Gallbladder and Bile Ducts using Low Osmolar Contrast (ICD-10-PCS; 2019-03-26)
DX: K81.0 Acute cholecystitis (principal); E44.0 Moderate protein-calorie malnutrition; K81.1 Chronic cholecystitis; E86.0 Dehydration; I10 Essential (primary) hypertension; E78.5 Hyperlipidemia, unspecified; F32.9 Major depressive disorder, single episode, unspecified; F17.200 Nicotine dependence, unspecified, uncomplicated; K75.81 Nonalcoholic steatohepatitis (NASH); F41.9 Anxiety disorder, unspecified; Z90.49 Acquired absence of other specified parts of digestive tract; Z68.33 Body mass index [BMI] 33.0-33.9, adult
CPT/HCPCS: 36415; 36416; 47532; 71045; 71260; 74177; 78227; 80053; 80074; 80306; 80307; 81003; 82390; 82553; 82728; 83516; 83540; 83550; 83690; 83735; 84100; 84436; 84443; 84484; 85025; 85610; 86038; 86225; 88304; 88307; 88313; 93005; 93975; 94760; 96361; 96365; 96375; A9537; J0694; J1100; J1885; J2001; J2405; J2550; J2704; J3010; J3490; Q0163; Q9967

== ENCOUNTER 2019-04-30 13:31 | Inpatient (IN) | payer SELFPAY ==
[2019-04-30 14:02] LABS: #Basophils 0.1 thou/uL (0.0-0.2); #Eosinphils 0.1 thou/uL (0.0-0.7); #Lymphocytes 3.4 thou/uL (1.20-3.40); #Monocytes 0.8 thou/uL (0.11-0.59); %Basophils 0.9 % (0.0-1.0); %Eosinophils 1.3 % (0.0-10.0); %Lymphocytes 32.4 % (21.0-51.0); %Monocytes 7.4 % (0.0-10.0); %Neutrophils 57.9 % (42.0-75.0); Hemoglobin 14.5 g/dL (12.0-16.0); Mean Corpuscular HGB CONC 34.1 g/dL (32.0-36.0); Mean Corpuscular Hemoglobin 35.1 pg (27.0-31.0); Mean Platelet Volume 7.5 fL (7.4-10.4); Platelet Count 212 thou/uL (130-400); RBC Distribution Width 12.7 % (11.5-14.5); Red Blood Cell (RBC) Count 4.14 mill/uL (4.20-5.40); White Blood Cell (WBC) Count 10.4 thou/uL (4.8-10.8)
[2019-04-30 14:06] LABS: Squamous Epithelial 0-3 HPF (0-3); WBC/HPF 0-3 HPF (0-3)
[2019-04-30 14:08] LABS: Bilirubin Negative (Negative); Blood, Urine Negative (Negative); Glucose, Urine (Dipstick) Negative (Negative); Leukocyte Negative (Negative); Nitrite Negative (Negative); Protein, Urine (Dipstick) Negative (Neg-Trace); Urobilinogen 0.2 mg/dL (Less than 2)
[2019-04-30 14:13] LABS: Clarity Clear (Clear)
[2019-04-30 14:14] LABS: Bacteria/HPF 1+ HPF (None Seen)
[2019-04-30 14:27] LABS: ALT (SGPT) 408 U/L (8-55); AST (SGOT) 364 U/L (5-34); Albumin 3.6 g/dL (3.5-5.0); Alkaline Phosphatase 164 U/L (40-110); Anion Gap 15 mmol/L (10-20); BUN (Urea Nitrogen) 18 mg/dL (7.0-18.7); Bilirubin, Total 2.3 mg/dL (0.2-1.2); CK (CPK) 106 U/L (29-168); Calc. Creatinine Clearance 0 mL/min (70-130); Calcium 9.1 mg/dL (7.8-10.44); Carbon Dioxide 25 mmol/L (22-29); Chloride 94 mmol/L (98-107); Estimated GFR-MDRD 36; Globulin 3.9 g/dL (2.4-3.5); Glucose 117 mg/dL (70-105); Lipase 61 U/L (8-78); Potassium 3.6 mmol/L (3.5-5.1); Protein, Total 7.5 g/dL (6.0-8.3); Sodium 130 mmol/L (136-145)
[2019-04-30] MEDS ORDERED: Sodium Chloride 0.9% 1,000 ML IV SCH (16:00)
[2019-04-30] MEDS: Sodium Chloride 0.9% 1,000 ML IV SCH (20:18)
[2019-04-30] MEDS: diphenhydrAMINE 25 MG CAP PO PRN (20:24)
[2019-04-30] MEDS ORDERED: Ondansetron ODT 4 MG TAB PO PRN (20:58)
[2019-04-30] MEDS ORDERED: Atorvastatin Calcium 20 MG TAB PO SCH (21:00)
[2019-04-30] MEDS: busPIRone HCl 5 MG TAB PO SCH (21:55)
[2019-04-30] MEDS: diphenhydrAMINE 25 MG CAP PO SCH (21:56)
--- NOTE | 2019-05-01 02:00 | HP ---
CHIEF COMPLAINT: Elevated LFTs and losing weight. HISTORY OF PRESENT ILLNESS: Ms. Sanchez is a 49-year-old female with past medical history of hypertension, hyperlipidemia, and anxiety disorder, was sent to the hospital because of elevated LFTs. The patient had lab work done in the office yesterday and it showed markedly elevated LFTs. The patient was in the hospital a few months ago for the similar problems. Had cholecystectomy at that time. LFTs were improving at that time, but they are getting worse now. The patient's potassium was also low on the lab work. Her triglycerides were very very high as well. The patient states she has been losing weight steadily again, not eating much, vomited few times 2 days ago, but no abdominal pain. The patient was evaluated in the ER, found to have elevated LFTs, being admitted for further evaluation and management. PAST MEDICAL HISTORY: 1. Hypertension. 2. History of anxiety disorder. 3. History of elevated LFTs, etiology not clear. 4. History of anorexia and weight loss. PAST SURGICAL HISTORY: 1. Status post cholecystectomy recently. 2. Status post appendectomy. 3. Status post . CURRENT MEDICATIONS: The patient takes: 1. Benadryl p.r.n. 2. BuSpar 15 mg b.i.d. 3. Zoloft 100 mg daily. 4. Lisinopril with hydrochlorothiazide 20/12.5 daily. 5. KCl 10 mEq daily. ALLERGIES: NKDA. FAMILY HISTORY: Nothing contributory. SOCIAL HISTORY: The patient lives with family. No history of smoking. No history of alcohol. REVIEW OF SYSTEMS: Unremarkable except for the weight loss, nausea, vomiting. PHYSICAL EXAMINATION: GENERAL: The patient is alert, awake, oriented x3. VITAL SIGNS: Temperature 98, pulse is 87, respirations 20, blood pressure 120/ 60. HEENT: Head is normocephalic, atraumatic. Pupils are equal and reactive. Nasopharynx is pale and dry. NECK: Supple. No JVD. LUNGS: Bilateral air entry with no rales and no rhonchi. HEART: S1 and S2, regular. ABDOMEN: Soft. No distention. No tenderness. No organomegaly. Bowel sounds present. RECTAL: Deferred. CENTRAL NERVOUS SYSTEM: No focal deficits. LABORATORY DATA: CBC shows WBC of 10, hemoglobin 14, and platelets 212. Metabolic panel; sodium 135, potassium 3.6, chloride 94, CO2 of 23, urea nitrogen 18, creatinine 1.5, glucose 117, total bilirubin 2.3, AST 364, ALT 408, alkaline phos 164. Urinalysis negative. ASSESSMENT: 1. Markedly elevated LFTs. 2. Acute kidney injury. 3. Hypertension. 4. Anxiety disorder. 5. Anorexia and weight loss with protein-calorie malnutrition. PLAN: 1. Vital signs q.4 hours. 2. Activity as tolerated. 3. Allergies, NKDA. 4. IV fluids, normal saline at 100 mL/h. 5. Diet, regular. 6. Continue home medications. 7. GI consult. 8. Lab work in the morning. Job ID: [id number] [facility]
--- NOTE | 2019-05-01 04:16 | CON ---
DATE OF CONSULTATION: 04/30/2019 REASON FOR CONSULTATION: Poor oral intake, anorexia, dysphagia and early satiety. HISTORY OF PRESENT ILLNESS: Ms. Lily Sanchez is a very pleasant 49-year-old female hospitalized with ER with unable to eat or drink anything over the last several days and also complaining of tiredness and fatigue and poor energy. The patient was hospitalized here in March [address] Rajinder Bello. At that time, she had abdominal pain, some nausea and dyspepsia. She was seen by Dr. Brent Reeder at that time. She was found to have abnormal LFTs. The patient underwent extensive evaluation including hepatitis markers, LOCO, AMA, and also ceruloplasmin. All were reported normal. She had liver biopsy during the laparoscopic cholecystectomy. Liver biopsy basically shows fatty liver and steatohepatitis. The patient has history of hypertension and hyperlipidemia. She does take Lipitor for hyperlipidemia. The patient tells me after her gallbladder surgery, she was feeling better for a week. Subsequently started losing her appetite and was not able to eat anything. She basically takes some sips of water and some clear liquid diet. She has a history of dysphagia to solid foods off and on. The dysphagia mostly to solid foods like meat, which will hang up. She says she has to eat small bites and has to chew nicely and swallow. She also drinks some water to make it go down. When she was seen by Dr. Brent Reeder a month ago, the plan was to do EGD and colonoscopy as an outpatient. However, the patient felt no body called her to come back for the EGD and colonoscopy. The patient has had no hematochezia. Her bowel movements are constipated because of poor oral intake. The patient has history of occasional heartburn. She has heartburn maybe once or twice a month. The patient has had poor appetite and abdominal bloating, and fullness with early satiety over the last 1 year. She lost nearly 70 pounds over the last 1 year. The patient denies any abdominal pain at this time. No nausea, no vomiting. Her liver function tests remain elevated over the last 1 month. It is fluctuating slightly, but never came back to normal. She has no relevant symptoms. ALLERGIES: NONE. SOCIAL HISTORY: The patient does not smoke, but does vape. Drinks alcohol very occasionally. No history of drug abuse. MEDICAL ILLNESSES: 1. Hypertension. 2. Hyperlipidemia. 3. Depression. 4. Obesity with weight loss of 75 pounds over the last 1 year. PAST SURGICAL HISTORY: 1. Laparoscopic cholecystectomy in March 2019. 2. Liver biopsy at the same time revealing steatohepatitis. 3. Appendectomy. 4. . FAMILY HISTORY: Sister has Crohn disease. MEDICATION LIST: Reviewed, which include; 1. Amlodipine. 2. Atorvastatin. 3. Buspirone. 4. Benadryl. 5. Lisinopril/hydrochlorothiazide. REVIEW OF SYSTEMS: A 10-point system reviewed. CONSTITUTIONAL: History of weight loss, poor appetite, anorexia. No history of any fever. No night sweats. HEAD: No chronic headache. No syncope. No dizziness. EYES: No diplopia. No impaired vision. EARS: No ear discharge or ear pain. NOSE: No nosebleed. THROAT: No sore throat. NECK: No stiffness or any limitation of movement. LUNGS: No chronic coughing, hemoptysis, or dyspnea. CARDIOVASCULAR: No chest pain. No palpitation. No dyspnea, orthopnea, or PND. GI: History of dysphagia to solid foods, history of early satiety, abdominal bloating, abdominal fullness, poor appetite. : No dysuria, hematuria, or frequency of urination. MUSCULOSKELETAL: Nonrelevant. NEUROLOGIC: Nonrelevant. ENDOCRINE: Nonrelevant. HEMATOLOGICAL: Nonrelevant. PHYSICAL EXAMINATION: GENERAL: The patient is obese, appears comfortable, in no acute distress. VITAL SIGNS: Temperature 99.1 degrees Fahrenheit, pulse is 97, blood pressure 114/58. HEENT: She is mildly icteric. NECK: Supple. No adenitis or thyromegaly noted. CARDIOVASCULAR: First and second heart sounds normal. LUNGS: Clear to auscultation. ABDOMEN: Soft. Abdomen is nontender. No organomegaly. No masses. Bowel sounds normal. EXTREMITIES: Reveal trace edema. LABORATORY DATA: Lytes are normal. Sodium is 130, potassium 3.6, chloride 94, bicarb is 25, BUN is 18, glucose 117, calcium 9.1, bilirubin 2.3, AST 364, ALT 408, alkaline phosphatase 164, albumin is 3.9, lipase 61. CBC; WBC 10,400, hemoglobin is 14.5, hematocrit 42.6, MCV 103, platelet count is 212,000. CLINICAL IMPRESSION: A 49-year-old female with; 1. History of anorexia, early satiety, abdominal bloating. She also complains of dysphagia. 2. Abnormal LFTs, etiology unclear. The patient has had extensive workup done during last admission including hepatitis markers, LOCO, AMA and also ceruloplasmin etc. Her liver biopsy basically showed steatohepatitis. 3. Dysphagia, which is unclear, possibly peptic stricture. 4. Weight loss, etiology unclear. 5. Obesity. 6. Hypertension. 7. Hyperlipidemia. 8. Depression. 9. Appendectomy. RECOMMENDATION: EGD tomorrow because of dysphagia and weight loss. At some point in time, she will also have a colonoscopy. I did talk to Ms. Sanchez and she agreed. I will plan for EGD tomorrow and make further recommendations. Job ID: [id number]
[2019-05-01] MEDS: Sodium Chloride 0.9% 1,000 ML IV SCH ×3 (05:51→20:29)
[2019-05-01 08:51] LABS: #Basophils 0.1 thou/uL (0.0-0.2); #Eosinphils 0.3 thou/uL (0.0-0.7); #Lymphocytes 2.8 thou/uL (1.20-3.40); #Monocytes 0.5 thou/uL (0.11-0.59); #Neutrophils 2.5 thou/uL (1.40-6.50); %Basophils 0.9 % (0.0-1.0); %Eosinophils 4.8 % (0.0-10.0); %Lymphocytes 45.3 % (21.0-51.0); %Monocytes 8.5 % (0.0-10.0); %Neutrophils 40.4 % (42.0-75.0); Hemoglobin 13.5 g/dL (12.0-16.0); Mean Corpuscular HGB CONC 34.1 g/dL (32.0-36.0); Mean Corpuscular Hemoglobin 35.6 pg (27.0-31.0); Mean Platelet Volume 7.7 fL (7.4-10.4); Platelet Count 155 thou/uL (130-400); RBC Distribution Width 12.7 % (11.5-14.5); Red Blood Cell (RBC) Count 3.79 mill/uL (4.20-5.40); White Blood Cell (WBC) Count 6.2 thou/uL (4.8-10.8)
[2019-05-01] MEDS ORDERED: Potassium Chloride 10 MEQ TAB PO SCH (09:00)
[2019-05-01] MEDS ORDERED: Lisinopril/Hydrochlorothiazide 20 mg/12.5 mg Tablet PO SCH (09:00)
[2019-05-01] MEDS ORDERED: Multivitamin W/ Minerals 1 TAB PO SCH (09:00)
[2019-05-01 09:12] LABS: ALT (SGPT) 286 U/L (8-55); AST (SGOT) 228 U/L (5-34); Albumin 3.4 g/dL (3.5-5.0); Alkaline Phosphatase 140 U/L (40-110); Anion Gap 11 mmol/L (10-20); BUN (Urea Nitrogen) 11 mg/dL (7.0-18.7); Bilirubin, Total 2.9 mg/dL (0.2-1.2); Calc. Creatinine Clearance 105 mL/min (70-130); Calcium 8.8 mg/dL (7.8-10.44); Carbon Dioxide 32 mmol/L (22-29); Cardiac Risk 6.6 (Less than 4.5); Chloride 101 mmol/L (98-107); Cholesterol 179 mg/dl (< 200 Desired); Estimated GFR-MDRD 65; Glucose 117 mg/dL (70-105); HDL Cholesterol 27 mg/dL (>60 Neg Risk); LDL Cholesterol, Calculated 87 mg/dL; Potassium 4.1 mmol/L (3.5-5.1); Protein, Total 6.4 g/dL (6.0-8.3); Sodium 140 mmol/L (136-145); Triglycerides 323 mg/dL (Less than 150)
[2019-05-01] MEDS: diphenhydrAMINE 25 MG CAP PO PRN (09:29)
[2019-05-01] MEDS: diphenhydrAMINE 25 MG CAP PO SCH (14:10)
[2019-05-01] MEDS: busPIRone HCl 5 MG TAB PO SCH ×2 (14:17→22:28)
[2019-05-01] MEDS: Amlodipine 10 MG TAB PO SCH (14:17)
[2019-05-01 14:19] VITALS: BMI 32.0
[2019-05-01] MEDS ORDERED: PROPOFOL 200 MG/20 ML VIAL ONE (14:37)
[2019-05-01] MEDS ORDERED: GoLYTELY 4,000 ml Bottle PO SCH (17:15)
--- NOTE | 2019-05-01 17:15 | OP ---
DATE OF PROCEDURE: 05/01/2019 SERVICE DISPATCHER SURGEON: None. PROCEDURES PERFORMED: Esophagogastroduodenoscopy with esophageal biopsies and esophageal dilation over guidewire. INDICATIONS: 1. Dysphagia. 2. Weight loss. 3. Vomiting. MEDICATIONS: See Anesthesia record. FINDINGS: After discussion of the risks, benefits, and alternatives of the procedure, informed consent was obtained and witnessed. Pre-endoscopic cardiopulmonary examination was satisfactory. Time-out was performed before sedation was achieved. Sedation was achieved with Anesthesia assistance in the endoscopy unit. A Pentax adult upper endoscope was placed into the oropharynx and passed through the cricopharyngeus under direct visualization. The esophageal mucosa appeared normal throughout with a normal-appearing Z-line at 38 cm from the incisors. There was no evidence of any inflammation or fibrosis. I did obtain biopsies from the midesophagus to rule out eosinophilic esophagitis. The endoscope was advanced beyond the GE junction and into the stomach. Forward and retroflexed views of the entire gastric mucosa were obtained. The gastric mucosa appeared normal throughout. The endoscope was advanced through the pylorus and into the first and second portions of the duodenum, which also appeared normal. At this point, a Savary spring-tipped guidewire was passed through the accessory port of the endoscope with the tip placed in the gastric antrum. The endoscope was then removed leaving the guidewire in place. I then performed a single Savary dilation of the esophagus to 18 mm. The dilator passed quite easily. After the dilator and guidewire were removed, the endoscope was passed back into the esophagus for re-examination and this demonstrated no change. The upper endoscope was completely withdrawn, and the patient allowed to recover. The patient tolerated the procedure well. There were no immediate postprocedure complications. IMPRESSION: 1. Normal esophagogastroduodenoscopy. 2. Mid esophageal biopsies obtained, to rule out eosinophilic esophagitis. 3. Empiric esophageal dilation was performed to 18 mm with Savary dilator, with post dilation inspection showing no change. RECOMMENDATIONS: 1. Follow up results of esophageal biopsies. 2. The patient will need colonoscopy at some point, given her significant weight loss. I will discuss with the patient if she wants to have this done tomorrow. 3. Please note that recent liver biopsy performed last month demonstrated steatohepatitis with only grade 1/3 activity and only stage I fibrosis, and a pattern that would be most consistent with alcohol toxicity or some other unknown toxin, slightly less likely to be related to just obesity/metabolic syndrome. Consider possibility of toxin associated with E-cigarettes. Job ID: [id number]
[2019-05-01] MEDS ORDERED: diphenhydrAMINE 25 MG CAP PO PRN (20:11)
[2019-05-01] MEDS ORDERED: Ondansetron ODT 4 MG TAB PO PRN (20:12)
[2019-05-01] MEDS ORDERED: Atorvastatin Calcium 20 MG TAB PO SCH (21:00)
[2019-05-01] MEDS ORDERED: diphenhydrAMINE 25 MG CAP PO SCH (21:00)
[2019-05-01] MEDS ORDERED: diphenhydrAMINE 50 MG/ML VIAL IVP PRN (21:38)
[2019-05-02] MEDS: Sodium Chloride 0.9% 1,000 ML IV SCH (06:29)
[2019-05-02] MEDS ORDERED: Amlodipine 10 MG TAB PO SCH (09:00)
[2019-05-02] MEDS ORDERED: Potassium Chloride 10 MEQ TAB PO SCH (09:00)
[2019-05-02] MEDS ORDERED: Lisinopril/Hydrochlorothiazide 20 mg/12.5 mg Tablet PO SCH (09:00)
[2019-05-02] MEDS ORDERED: Multivitamin W/ Minerals 1 TAB PO SCH (09:00)
[2019-05-02] MEDS ORDERED: diphenhydrAMINE 50 MG/ML VIAL IVP PRN (09:38)
[2019-05-02] MEDS: busPIRone HCl 5 MG TAB PO SCH (09:49)
[2019-05-02] MEDS ORDERED: PROPOFOL 200 MG/20 ML VIAL ONE (12:37)
[2019-05-02] MEDS ORDERED: Lidocaine 1% PF 5 ML VIAL ONE (12:37)
--- NOTE | 2019-05-02 14:24 | OP ---
DATE OF PROCEDURE: 05/02/2019 MILK RUNNER SURGEON: None. PROCEDURE PERFORMED: Colonoscopy with snare polypectomy. INDICATION: Weight loss. This is the patient's first colonoscopy. MEDICATIONS: See Anesthesia record. FINDINGS: After discussion of the risks, benefits, and alternatives of the procedure, informed consent was obtained and witnessed. Pre-endoscopic cardiopulmonary examination was satisfactory. Time-out was performed before sedation was achieved. Sedation was achieved with Anesthesia assistance in the endoscopy unit. Digital rectal exam was performed, which was unremarkable. A Pentax adult colonoscope was inserted into the anus and passed forward to the cecum in the usual fashion. The cecal base was identified by the appendiceal orifice as well as the ileocecal valve. The terminal ileum was intubated and the ileal mucosa appeared normal. The colonoscope was slowly withdrawn in a gradual and circumferential manner with careful examination of the entire colonic mucosa. The quality of the prep was fair, but adequate to exclude polyps greater than 5 mm in size. The colonic mucosa appeared normal throughout. In the sigmoid colon, there was a single polyp measuring 2 mm in diameter. This was completely removed with cold snare and retrieved for pathology. The remainder of the colonic mucosa appeared normal. Retroflexion in the rectum was unremarkable. The colonoscope was completely withdrawn and the patient allowed to recover. The patient tolerated the procedure well. There were no immediate postprocedure complications. IMPRESSION: 1. A 2-mm sessile polyp in the sigmoid colon, completely removed with cold snare and retrieved for pathology. 2. Otherwise, normal colonoscopy to the terminal ileum. RECOMMENDATIONS: 1. Follow up pathology results on the colon polyp. 2. Repeat colonoscopy for surveillance in 5 years. 3. As discussed with Dr. Bello, I would recommend holding her statin at this time. 4. Follow up in the GI Clinic in 3 to 4 weeks. GI will sign off. Please call back anytime with questions or concerns. Job ID: [id number]
[2019-05-02 17:07] VITALS: BP 121/68; TEMP 99.1
--- NOTE | 2019-05-05 08:02 | PQF ---
DENYS Mendoza MD [id number] CLINICAL DOCUMENTATION CLARIFICATION FORM: POST DISCHARGE Addendum to original discharge summary date: ____ Late entry note date: __ Date: 05/05/2019 ATTN: DENYS SANDOVAL MD Please exercise your independent, professional judgment in responding to the clarification form. Clinical indicators are provided on the bottom of this form for your review Please check appropriate box(s): [ y ] Protein Calorie Malnutrition: [ ] Mild [ y ] Moderate [ ] Severe [ ] Other diagnosis [ ] Unable to determine CLINICAL INDICATORS - SIGNS / SYMPTOMS / LABS - losing weight- H&P, 04/30, DENYS SANDOVAL MD - Anorexia and weight loss with protein calorie malnutrition- H&P, 04/30, DENYS SANDOVAL MD - Review of system:unremarkable except for the weight loss, nausea, vomiting- H& P, 04/30, DENYS SANDOVAL MD - Poor oral intake, anorexia, dysphagia- Consultation, 04/30, Jamal gilbert MD - BMI: 32.0-FNS assessment, 05/01 - Albumin: 3.4L, Laboratory, 05/01 RISK FACTORS - Obesity- Consultation, 04/30, Jamal gilbert MD - Appendectomy, cholecystectomy-[facility]- Consultation, 04/30, Jamal gilbert MD TREATMENT: -Multivitamin.PO- 04/28 -Sodium chloride.IV-04/28 Moderate Malnutrition (in acute illness) Energy Intake: <75% of estimated energy requirement for > 7 days Weight Loss: 1-2%/1 week; 5%/ 1 month; 7.5%/3 months Other: mild body fat loss; mild muscle mass loss; mild fluid accumulation; Severe Malnutrition (in acute illness) Energy Intake: < 50% of estimated energy requirement for > 5 days Weight Loss: >1-2%/1 week; >5%/1 month; >7.5%/3 months Other: moderate body fat loss; moderate muscle mass loss; moderate- severe fluid accumulation; measurably reduced silverware supervisor strength Moderate Malnutrition (in chronic illness) Energy Intake: <75% of estimated energy requirement for >1 month Weight Loss: 5%/1 month; 7.5%/3 months; 10%/6 months; 20%/1 year Other: mild body fat loss; mild muscle mass loss; mild fluid accumulation Severe Malnutrition (in chronic illness) Energy Intake: <75% of estimated energy requirement for >1 month Weight Loss: >5%/1 month; >7.5%/3 months; >10%/6 months; >20%/1 year Other: severe body fat loss; severe muscle mass loss; severe fluid accumulation ; measurably reduced silverware supervisor strength (This form is maintained as a part of the permanent medical record) 2014 [employer]. All Rights Reserved Clarisse Renner [not provided] [not provided] BRITTANY
--- NOTE | 2019-05-05 11:36 | DIS ---
DATE OF ADMISSION: 04/30/2019 DATE OF DISCHARGE: 05/02/2019 ADMITTING DIAGNOSES: 1. Markedly elevated LFTs. 2. Acute kidney injury. 3. Hypertension. 4. Anxiety disorder. 5. Protein-calorie malnutrition with anorexia and weight loss. 6. Nausea and vomiting. FINAL DIAGNOSES: 1. Markedly elevated LFTs, etiology not clear, but improving. 2. Acute kidney injury, improved. 3. Hypertension. 4. Anxiety disorder. 5. Protein calorie malnutrition, anorexia, weight loss, improving. BRIEF SUMMARY OF HOSPITAL COURSE: Ms. Sanchez is a 49-year-old female admitted because of weight loss, anorexia, nausea, vomiting. The patient was found to have markedly elevated LFTs. Her AST was 364 and ALT 408, alkaline phosphatase 164 on admission, so a GI consult was done. The patient was seen by Dr. Reeder who suggested EGD and colonoscopy in view for her anorexia and weight loss and both were unremarkable except there was a polyp removed in the sigmoid colon. maybe her LFTs elevated due to her statin, so her Lipitor was stopped. The patient is eating better now. She is being discharged home in view of improvement of her symptoms. At the time of discharge, she was stable, her vital signs stable, lungs clear, heart sounds regular. Abdomen is soft and nontender. Bowel sounds present. DISCHARGE MEDICATIONS: 1. BuSpar 15 mg b.i.d. 2. KCl 10 mEq daily. 3. Lisinopril with hydrochlorothiazide 20/12.5 daily. 4. Amlodipine 10 mg daily. 5. Benadryl p.r.n. 6. Zofran p.r.n. 7. Metoprolol 50 daily. 8. Her Lipitor has been discontinued. FOLLOWUP: The patient will come for followup in 3 weeks. Job ID: [id number] [facility]
== END 2019-05-02 18:17 | disposition home or self-care (01) | DRG 948 ==
LOC: ERS 13:31 → OBSVTOIN 18:25 → 3SE 18:25 → UNDODISIN 05-01 10:15
PROVIDERS: ADMIT Internal Medicine; ATTEND Internal Medicine
PROC: 0DB58ZX Excision of Esophagus, Via Natural or Artificial Opening Endoscopic, Diagnostic (ICD-10-PCS; principal; 2019-05-01)
PROC: 0D758ZZ Dilation of Esophagus, Via Natural or Artificial Opening Endoscopic (ICD-10-PCS; 2019-05-01)
PROC: 0DBN8ZZ Excision of Sigmoid Colon, Via Natural or Artificial Opening Endoscopic (ICD-10-PCS; 2019-05-02)
DX: R79.89 Other specified abnormal findings of blood chemistry (principal); N17.9 Acute kidney failure, unspecified; E44.0 Moderate protein-calorie malnutrition; I10 Essential (primary) hypertension; E78.5 Hyperlipidemia, unspecified; K75.81 Nonalcoholic steatohepatitis (NASH); F32.9 Major depressive disorder, single episode, unspecified; T49.0X5A Adverse effect of local antifungal, anti-infective and anti-inflammatory drugs, initial encounter; K76.0 Fatty (change of) liver, not elsewhere classified; F41.9 Anxiety disorder, unspecified; E66.9 Obesity, unspecified; Z90.49 Acquired absence of other specified parts of digestive tract; Z68.32 Body mass index [BMI] 32.0-32.9, adult
CPT/HCPCS: 36415; 80053; 80061; 81003; 82550; 83690; 85025; 88305; 99284; J1200; J2001; J2704; Q0162; Q0163

== ENCOUNTER 2019-06-27 13:15 | Inpatient (IN) | payer SELFPAY ==
[2019-06-27] MEDS ORDERED: Metoclopramide HCl 10 MG/2 ML VIAL ONE (14:38)
[2019-06-27 14:48] LABS: #Monocytes 0.5 thou/uL (0.11-0.59); #Neutrophils 4.3 thou/uL (1.40-6.50); %Basophils 0.6 % (0.0-1.0); %Eosinophils 0.3 % (0.0-10.0); %Monocytes 7.1 % (0.0-10.0); Hemoglobin 13.7 g/dL (12.0-16.0); Mean Corpuscular Hemoglobin 38.3 pg (27.0-31.0); Mean Platelet Volume 7.4 fL (7.4-10.4); Platelet Count 208 thou/uL (130-400); RBC Distribution Width 17.7 % (11.5-14.5); Red Blood Cell (RBC) Count 3.56 mill/uL (4.20-5.40); White Blood Cell (WBC) Count 6.8 thou/uL (4.8-10.8)
[2019-06-27 14:57] LABS: Anisocytosis SLIGHT = 6-15 cells (100X) (0-5/hpf); MDiff Complete? YES; Macrocytosis SLIGHT = 6-15 cells (100X) (0-5/hpf); Platelet Morphology Comment Appears Adequate; Polychromasia SLIGHT = 2-3 cells (100X) (0-2/hpf)
[2019-06-27 15:10] LABS: ALT (SGPT) 111 U/L (8-55); AST (SGOT) 257 U/L (5-34); Alkaline Phosphatase 224 U/L (40-110); Anion Gap 24 mmol/L (10-20); BUN (Urea Nitrogen) 8 mg/dL (7.0-18.7); Calc. Creatinine Clearance 0 mL/min (70-130); Calcium 9.2 mg/dL (7.8-10.44); Carbon Dioxide 25 mmol/L (22-29); Chloride 93 mmol/L (98-107); Estimated GFR-MDRD 73; Globulin 3.9 g/dL (2.4-3.5); Glucose 101 mg/dL (70-105); Lipase 41 U/L (8-78); Potassium 3.5 mmol/L (3.5-5.1); Protein, Total 7.9 g/dL (6.0-8.3); Sodium 138 mmol/L (136-145)
[2019-06-27 15:54] LABS: Bilirubin Negative (Negative); Blood, Urine Negative (Negative); Clarity Clear (Clear); Glucose, Urine (Dipstick) Normal (Negative); Leukocyte Negative Leu/uL (Negative); Nitrite Negative (Negative); Protein, Urine (Dipstick) 20 mg/dL (Neg-Trace); Urobilinogen Normal mg/dL (Less than 2)
[2019-06-27] MEDS ORDERED: Haloperidol Lactate 5 MG/ML VIAL ONE (17:33)
[2019-06-27] MEDS ORDERED: Labetalol HCl 100 MG/20 ML VIAL ONE (19:24)
[2019-06-27] MEDS ORDERED: Ondansetron ODT 4 MG TAB SL PRN (20:48)
[2019-06-27] MEDS ORDERED: Metoclopramide HCl 10 MG/2 ML VIAL IVP PRN (20:49)
[2019-06-27] MEDS: Sodium Chloride 0.9% 1,000 ML IV SCH (20:57)
[2019-06-27 21:14] VITALS: BMI 28.7
[2019-06-27] MEDS: Ondansetron PF 4 MG/2 ML Vial IVP PRN (22:20)
[2019-06-27] MEDS ORDERED: Labetalol HCl 100 MG/20 ML VIAL SLOW IVP PRN (22:36)
[2019-06-28] MEDS ORDERED: Haloperidol Lactate 5 MG/ML VIAL SLOW IVP SCH (03:45)
[2019-06-28] MEDS: Sodium Chloride 0.9% 1,000 ML IV SCH ×2 (03:48→09:45)
[2019-06-28] MEDS: Ondansetron PF 4 MG/2 ML Vial IVP PRN (06:44)
[2019-06-28] MEDS ORDERED: ALPRAZolam 0.25 MG TAB PO SCH (09:00)
[2019-06-28] MEDS ORDERED: Ondansetron ODT 4 MG TAB SL PRN (09:21)
[2019-06-28] MEDS: Promethazine HCl 25 MG/ML VIAL SLOW IVP PRN ×3 (09:43→22:48)
[2019-06-28] MEDS ORDERED: Potassium Chloride 10 MEQ TAB PO SCH (14:45)
[2019-06-28 14:54] LABS: Amphetamine Not Detected (NotDetected); Barbiturates Screen Not Detected (NotDetected); Benzodiazepine Screen Not Detected (NotDetected); Cocaine Metabolite Screen Not Detected (NotDetected); Medtox Control Line Valid? VALID (VALID); Medtox Reader # READER 4; Methadone Not Detected (NotDetected); Methamphetamine Not Detected (NotDetected); Opiate Screen Not Detected (NotDetected); Oxycodone Screen Not Detected (NotDetected); Phencyclidine (PCP) Not Detected (NotDetected); THC/Cannabinoid Screen Not Detected (NotDetected); Tricyclic Screen Not Detected (NotDetected)
[2019-06-28] MEDS: D5W-AA 4.25% with LYTES 1,000 ML IV SCH (15:09)
--- NOTE | 2019-06-28 21:08 | HP ---
CHIEF COMPLAINT: Nausea, vomiting, diarrhea, not eating. HISTORY OF PRESENT ILLNESS: Ms. Sanchez is a 49-year-old female with past medical history of hypertension, anxiety disorder, who was evaluated last year in the hospital for the same symptoms. She had cholecystectomy, EGD, and colonoscope. The patient continued having nausea, vomiting, diarrhea, and not able to eat, especially in the last few weeks it has gotten worse to the point she is unable to keep anything down, and she also has been losing weight, since discharge from the hospital. The patient also feels her legs and extremities are rigid and like more stiff. The patient states she has a history of Parkinson disease in the family. Did not have any abdominal pain. No fever. No chest pain or shortness of breath. Because of the continued symptoms, not eating. The patient was brought to the ER, where she was evaluated, found to have elevated LFTs like before. The patient received IV fluids, metoclopramide as well as haloperidol and admitted for further evaluation and management. The patient still has nausea and vomiting. PAST MEDICAL HISTORY: 1. Hypertension. 2. Anxiety disorder. 3. Protein-calorie malnutrition. 4. History of acute kidney injury. 5. Markedly elevated LFTs, etiology not clear. PAST SURGICAL HISTORY: 1. Status post cholecystectomy. 2. Status post appendectomy. 3. Status post . CURRENT MEDICATIONS: The patient is on BuSpar 15 mg b.i.d., not taking any blood pressure medications. ALLERGIES: NKDA. FAMILY HISTORY: Nothing contributory. SOCIAL HISTORY: The patient lives with family. No history of smoking. No history of alcohol. REVIEW OF SYSTEMS: Unremarkable except for the nausea, vomiting, diarrhea, and weight loss. PHYSICAL EXAMINATION: GENERAL: The patient is alert, awake, and oriented x3. VITAL SIGNS: Temperature 98, pulse 95, respiratory rate 20, blood pressure 115/70. HEENT: Head is normocephalic and atraumatic. Pupils are equal and reactive. Nasopharynx is pale and dry. NECK: Supple. No JVD. LUNGS: Bilateral air entry present. No rales, no rhonchi. HEART: S1 and S2, regular. ABDOMEN: Soft. No distention. Nontender. No guarding. No rigidity. Bowel sounds present. CENTRAL NERVOUS SYSTEM: Moves all extremities but there is rigidity in both upper extremities and lower extremities. LABORATORY DATA: CBC shows WBC 6.8, hemoglobin 13, hematocrit 39, and platelets 208. Metabolic panel: Sodium 138, potassium 3.5, chloride 93, CO2 of 25, urea nitrogen 8, creatinine 0.91, and glucose 101. Urinalysis negative. ASSESSMENT: 1. Intractable nausea and vomiting. 2. Diarrhea. 3. Protein-calorie malnutrition with dysphagia and weight loss, etiology not clear. 4. Anxiety disorder. 5. History of hypertension. 6. Rigidity of extremities, rule out Parkinson disease. PLAN: 1. Vital signs q.4 hours. 2. Activities, as tolerated. 3. Allergies, NKDA. 4. Hep-lock. 5. IV fluids, normal saline. 6. Phenergan 12.5 IVP q.6 hours p.r.n. 7. Continue home medications. 8. Metoprolol succinate 50 mg daily. 9. GI consult. 10. Neurology consult. Job ID: [id number]
[2019-06-28] MEDS: ALPRAZolam 0.25 MG TAB PO SCH (21:24)
--- NOTE | 2019-06-29 00:45 | CON ---
DATE OF CONSULTATION: 06/28/2019 REASON FOR CONSULTATION: Chronic nausea and vomiting. CONSULTING PROVIDER: John Ambrocio MD HISTORY OF PRESENT ILLNESS: The patient is a 49-year-old female with past medical history of hypertension, hyperlipidemia, and fatty liver via biopsy, presenting with complaints of chronic nausea and vomiting. She states that she has been having increased nausea and vomiting episodes that have been present since at least October of 2018, and progressively worsening over the last 6 to 9 months. Initially, this was intermittent episodes of nausea followed by discrete episodes of emesis around one time daily, but has now progressed to vomiting approximately three times daily, usually associated in conjunction with food. However, this will also occur outside of meals and will exhibit increased nausea and vomiting with fasting states. At the time that this started, she was changed on medications including addition of Lipitor to her regimen and changing her antidepressant medication to BuSpar. However, since that time, BuSpar has been changed for something else and she has been discontinued on Lipitor, but continues to have significant nausea and vomiting. This was also associated with increased dysphagia, where the patient stated that she would only be able to swallow small bites without inducing episodes of vomiting. However, she denied any difficulty swallowing from a mechanical standpoint, where she did not have the sensation that food was getting stuck with passage from the oropharynx to the esophagus. She also endorses diarrhea over the last 24 to 48 hours, having approximately 7 to 8 watery bowel movements during that time and significant anal irritation with increased frequency of stooling. Lastly, she also endorses early satiety despite small bites of food and if she eats too fast, this satiety feeling turns into nausea and vomiting. Otherwise, she denies any fevers, chills, abdominal pain, hematemesis, melena, or hematochezia. She has lost around 60 to 70 pounds over the last year. With this continued nausea and vomiting, it prompted her to seek healthcare assistance at the [facility] ER and ultimately was readmitted for further evaluation. Of note, the patient has undergone extensive testing thus far for evaluation of her chronic nausea and vomiting including EGD, colonoscopy, CT of the abdomen and pelvis, liver biopsy and cholecystectomy in March of 2019, all with fairly negative findings thus far. REVIEW OF SYSTEMS: A 10-category review of systems was obtained with all responses negative except for the pertinent positives as listed in HPI. PAST MEDICAL HISTORY: As per HPI. PAST SURGICAL HISTORY: Cholecystectomy, , and appendectomy. FAMILY HISTORY: Denies any GI malignancies. SOCIAL HISTORY: Denies any tobacco or illicit drug use. Drinks approximately 1 to 2 drinks every 1 to 2 weeks. OUTPATIENT MEDICATIONS: Reviewed. ALLERGIES: NO KNOWN DRUG ALLERGIES. PHYSICAL EXAMINATION: VITAL SIGNS: Temperature 98.8, pulse 90, blood pressure 142/78, respiratory rate 20, saturating 93% on room air. GENERAL: The patient was lying in bed, in no acute distress. Alert and oriented x4. HEENT: Normocephalic, atraumatic. NECK: Supple. No JVD or scleral icterus noted. CARDIOVASCULAR: Regular rate and rhythm with no discernible murmurs, gallops, or rubs. RESPIRATORY: Clear to auscultation bilaterally with no discernible wheezes or rales. ABDOMEN: Normoactive bowel sounds. Soft, nontender, and nondistended. EXTREMITIES: No cyanosis, clubbing, or edema. LABORATORY DATA: CBC with a white blood cell count of 6.8, hemoglobin 13.7, hematocrit 39.1, platelets 208. Chemistry with a sodium of 138, potassium 3.5, chloride 93, CO2 of 25, BUN 8, creatinine 0.83, glucose 101, AST 257, ALT 111, alkaline phosphatase 224, total bilirubin 2.0, albumin 4.0, lipase 41. IMAGING DATA: The patient underwent CT of the abdomen and pelvis on March 23, 2019, which showed diffuse hepatic steatosis with no other obvious abnormalities. She also underwent upper endoscopy on May 01, 2019, which showed normal findings within the esophagus, stomach, and the proximal small intestines. Biopsies of the esophagus were ultimately normal for possible eosinophilic esophagitis. Dilation of her esophagus using an 18 mm Savary dilator resulted in no appreciable benefit in her dysphagia. Colonoscopy was also performed on May 02, 2019, which showed a 2 mm sigmoid tubular adenoma, but was otherwise normal beyond that. ASSESSMENT AND PLAN: The patient is a 49-year-old female with past medical history of hypertension, hyperlipidemia, and fatty liver, presenting with continued chronic nausea, vomiting, and elevated LFTS. Chronic nausea and vomiting. Per chart review, the patient has undergone extensive testing thus far for evaluation of her chronic nausea including upper endoscopy, CT abdomen and pelvis, and serological studies that have been negative thus far for an obvious abnormality. She currently denies any tobacco or marijuana use that could potentially contribute. However, she does endorse a sensation of increased pressure buildup before her episodes of nausea and vomiting, which may be concerning for possible gastroparesis. Differential could also include esophagitis (less likely), gastritis (less likely), gastroparesis, medications/toxin administration, intracranial abnormality, disruption of a hormonal access (for example, progesterone/estrogen), and/or GI neoplasm (much less likely given current workup thus far). RECOMMENDATIONS: 1. Would proceed with a gastric emptying study for further evaluation of her chronic nausea and vomiting. 2. Continue with aggressive antiemetic control with Phenergan and IV fluid support. 3. Would place the patient on a full liquid diet given the possibility of gastroparesis and decreased nausea and vomiting with non-solid foods. 4. I will obtain a heavy metal serology as a possible source of her nausea and vomiting. Elevated LFTs. The patient is also presenting with elevated liver function tests that have been present since around October of 2018. Serological workup thus far has been extensive by my partner, Dr. Reeder, and includes negative viral hepatitis serologies, negative LOCO, ASMA, AMA, immunoglobulin profile, urine toxicology, and iron indices. She does have a borderline low ceruloplasmin, which could be indicative of Paul disease. However, she underwent a liver biopsy, which showed diffuse steatosis, predominantly macrovesicular type with no significant inflammation or activity and only mild focal portal fibrosis stage 1/4. 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 However, her continued episodes of nausea and vomiting could also potentially contribute to elevated LFTs much like as it is seen in hyperemesis gravidarum. RECOMMENDATIONS: 1. Would recommend weight loss measures as an outpatient for treatment of probable nonalcoholic steatohepatitis. 2. Would continue to trend her LFTs during this hospitalization for worsening inflammatory process of the liver. 3. Could consider repeat ceruloplasmin during this hospitalization. 4. Heavy metal serologies as above. Diarrhea. The patient is presenting with relatively acute onset of frequent diarrhea having approximately 7 to 8 watery bowel movements over the last 24 hours. Given her multiple hospital admissions over the last 2 to 3 months, it could be indicative of a possible infectious etiology, especially for possible Clostridium difficile. Differential could also include medication induced diarrhea, lack of solid food/fiber intake, celiac disease (less likely), IBS, IBD (less likely given normal colonoscopy in 2019), and/or GI neoplasm. RECOMMENDATIONS: 1. Would proceed with infectious stool studies for further evaluation of acute onset diarrhea. 2. Would recommend a liquid diet thus far with possible fiber supplementation with Metamucil or Citrucel given the possibility of gastroparesis. We will continue to follow. Please call with any questions. Job ID: [id number]
[2019-06-29] MEDS: D5W-AA 4.25% with LYTES 1,000 ML IV SCH ×2 (03:51→16:27)
[2019-06-29 06:58] LABS: Eosinophils 6 % (0-10); Hemoglobin 11.3 g/dL (12.0-16.0); Lymphocytes 40 % (21-51); MDiff Complete? YES; Mean Corpuscular HGB CONC 35.2 g/dL (32.0-36.0); Monocytes 7 % (0-10); Neutrophil 47 % (42-75); Platelet Count 109 thou/uL (130-400); Platelet Morphology Comment Appears Decreased; RBC Distribution Width 17.1 % (11.5-14.5); Red Blood Cell (RBC) Count 2.83 mill/uL (4.20-5.40); White Blood Cell (WBC) Count 6.2 thou/uL (4.8-10.8)
[2019-06-29 07:09] LABS: ALT (SGPT) 64 U/L (8-55); AST (SGOT) 115 U/L (5-34); Albumin 3.5 g/dL (3.5-5.0); Alkaline Phosphatase 152 U/L (40-110); Anion Gap 12 mmol/L (10-20); BUN (Urea Nitrogen) Less than 4 mg/dL (7.0-18.7); Bilirubin, Total 1.8 mg/dL (0.2-1.2); Calc. Creatinine Clearance 119 mL/min (70-130); Calcium 8.8 mg/dL (7.8-10.44); Carbon Dioxide 30 mmol/L (22-29); Chloride 101 mmol/L (98-107); Estimated GFR-MDRD 85; Globulin 3.1 g/dL (2.4-3.5); Glucose 115 mg/dL (70-105); Protein, Total 6.6 g/dL (6.0-8.3); Sodium 140 mmol/L (136-145)
[2019-06-29 07:15] LABS: Potassium 2.9 mmol/L (3.5-5.1)
[2019-06-29] MEDS: Promethazine HCl 25 MG/ML VIAL SLOW IVP PRN (07:39)
[2019-06-29] MEDS: ALPRAZolam 0.25 MG TAB PO SCH ×2 (07:41→20:20)
[2019-06-29] MEDS: Potassium Chloride 10 MEQ TAB PO SCH (07:43)
[2019-06-29] MEDS: Potassium Chloride 20 MEQ in Premix Bag 1 BAG IVPB SCH (09:35)
[2019-06-29] MEDS: Vancomycin HCl 25 MG/ML Oral PO SCH ×3 (13:00→23:46)
[2019-06-29] MEDS ORDERED: Potassium Chloride 20 MEQ TAB PO SCH (14:00)
--- NOTE | 2019-06-29 15:26 | CON ---
DATE OF CONSULTATION: 06/29/2019 CONSULTING PHYSICIAN: Rajinder Bello MD IMPRESSION: Atypical tremors, likely psychogenic in origin, but I cannot rule out dystonia. PLAN: Refer to [place] to the [facility]. HISTORY OF PRESENT ILLNESS: Ms. Sanchez is a 49-year-old woman who reports several years of different types of movement, one that she describes as a dystonic like extension, posture of the ankles and toes of both feet. This is usually when she is at rest, it is not painful. The children had pointed it out to her when she is doing it because she does not realize that it is occurring. She also has had some tremors in her hands that affect both sides. She is concerned that she may have Parkinson disease due to a family history that is present. She is currently hospitalized for diarrhea and being evaluated for possible C difficile. PAST HISTORY: Otherwise negative. ALLERGIES: NONE REPORTED. SOCIAL HISTORY: No tobacco or alcohol. FAMILY HISTORY: Positive for some type of movement disorder. REVIEW OF SYSTEMS: Ten-system review of systems is otherwise negative. PHYSICAL EXAMINATION: GENERAL: She is a well-nourished, middle-aged woman, lying in bed, in no acute distress. VITAL SIGNS: Stable. She is afebrile. HEENT: Pupils equal and reactive. Conjunctivae clear. Oropharynx clear. NECK: Supple. EXTREMITIES: No cyanosis, clubbing, or edema. NEUROLOGIC: She was alert and cooperative. Her speech is fluent and clear. Her cranial nerves were intact throughout. Motor exam showed good antigravity strength bilaterally. Tone was normal. Rapid alternating movements were symmetric and smooth. She had some fine postural tremor present in both hands. No abnormal movements were seen in the legs. Sensations intact. Plantar responses were downgoing. Gait was not tested at this time. SUMMARY: This is a middle-aged woman with some reported tremors and dystonic posturing in her feet. There is suspicion that is primarily psychogenic, but I would have her evaluated in [place] when she is released. Job ID: [id number]
[2019-06-29] MEDS: Promethazine 25 MG TAB PO PRN ×2 (16:28→22:10)
--- NOTE | 2019-06-29 20:25 | PRG ---
DATE OF SERVICE: 06/29/2019 REASON FOR CONSULTATION: Chronic nausea and vomiting. SUBJECTIVE: The patient states that she has not had any episodes of nausea or vomiting today with more conservative management thus far. She states that she was able to actually eat and hold down ingested food stuffs. Currently, she denies any nausea, vomiting, fevers, chills, abdominal pain, GI bleeding, dysphagia, or odynophagia. OBJECTIVE: VITAL SIGNS: Temperature 98.1, pulse 89, blood pressure 136/89, respiratory rate 20, saturating 96% on room air. GENERAL: The patient was lying in bed, in no acute distress. Alert and oriented x4. CARDIOVASCULAR: Regular rate and rhythm. RESPIRATORY: Clear to auscultation bilaterally. ABDOMEN: Normoactive bowel sounds. Soft, nontender, nondistended. EXTREMITIES: No cyanosis, clubbing, or edema. LABORATORY DATA: CBC with a white blood cell count of 6.2, hemoglobin 11.3, hematocrit 32.3, and platelets 109. Chemistry with a sodium of 140, potassium 2.9, chloride 101, CO2 30, BUN less than 4, creatinine 0.73, glucose 115. AST 115, ALT 64, alkaline phosphatase 152, total bilirubin 1.8. Microbiology studies were positive for C diff antigen and toxin. IMAGING DATA: No current GI imaging is available for review. ASSESSMENT AND PLAN: The patient is a 49-year-old female with past medical history of hypertension, hyperlipidemia, and fatty liver, presenting with continued chronic nausea and vomiting, but now with elevated LFTs and diarrhea. Chronic nausea and vomiting: Per chart review, the patient had undergone extensive testing thus far for evaluation of her chronic nausea and vomiting including negative upper endoscopy, CT abdomen and pelvis, and serological studies that had been negative for an obvious abnormality. However, with the onset of diarrhea shortly before admission, infectious stool studies were positive for Clostridium difficile with starting treatment for this particular condition and more conservative management with antiemetic control. The patient had no nausea or vomiting earlier today. At this time, the differential could include gastroparesis medication/toxin administration, intracranial abnormality (less likely), Clostridium difficile colitis, and/or GI neoplasm (much less likely). Recommendations: 1. Would proceed with gastric emptying study tomorrow for evaluation of her chronic nausea and vomiting that preceded the onset of diarrhea. 2. Continue with an aggressive antiemetic control and IV fluid support. 3. Would advance the patient's diet as tolerated. 4. Follow up on serologies obtained thus far including heavy metal serologies. Elevated LFTs: 1. The patient is also presenting with elevated LFTs that have been present since October of 2018. Serological workup thus far has been negative. Liver biopsy performed within the last few months showed diffuse steatosis consistent with fatty liver, but not indicative of cirrhosis or other underlying liver pathology. At this time, her elevated LFTs are actually downtrending, making the likelihood of nonalcoholic steatohepatitis mixed with repeated nausea and vomiting more likely. Recommendations: 1. Would recommend weight loss measures as an outpatient for treatment of PICKETT. 2. Continue with aggressive antiemetic control that could be contributing. 3. Continue to trend her LFTs during this hospitalization. 4. We will follow up with the heavy metal serologies as above. Diarrhea: 1. The patient also presented with acute onset of diarrhea shortly before admission with microbiology studies showing the presence of Clostridium difficile. Recommendations: 1. Would start the patient on oral vancomycin 125 mg every 6 hours with total duration treatment of 14 days. We will continue to follow. Please call with any questions. Job ID: [id number]
[2019-06-30] MEDS: D5W-AA 4.25% with LYTES 1,000 ML IV SCH ×2 (04:07→20:10)
[2019-06-30 05:32] LABS: #Basophils 0.1 thou/uL (0.0-0.2); #Eosinphils 0.2 thou/uL (0.0-0.7); #Lymphocytes 2.4 thou/uL (1.20-3.40); #Monocytes 0.3 thou/uL (0.11-0.59); #Neutrophils 4.3 thou/uL (1.40-6.50); %Basophils 1.1 % (0.0-1.0); %Eosinophils 3.1 % (0.0-10.0); %Monocytes 4.6 % (0.0-10.0); %Neutrophils 58.3 % (42.0-75.0); Hemoglobin 11.2 g/dL (12.0-16.0); Mean Corpuscular HGB CONC 35.1 g/dL (32.0-36.0); Mean Corpuscular Hemoglobin 40.3 pg (27.0-31.0); Mean Platelet Volume 7.8 fL (7.4-10.4); Platelet Count 120 thou/uL (130-400); RBC Distribution Width 17.3 % (11.5-14.5); Red Blood Cell (RBC) Count 2.79 mill/uL (4.20-5.40); White Blood Cell (WBC) Count 7.4 thou/uL (4.8-10.8)
[2019-06-30 05:59] LABS: ALT (SGPT) 54 U/L (8-55); AST (SGOT) 92 U/L (5-34); Albumin 3.4 g/dL (3.5-5.0); Alkaline Phosphatase 125 U/L (40-110); Anion Gap 12 mmol/L (10-20); BUN (Urea Nitrogen) 7 mg/dL (7.0-18.7); Bilirubin, Total 1.6 mg/dL (0.2-1.2); Calc. Creatinine Clearance 131 mL/min (70-130); Calcium 8.9 mg/dL (7.8-10.44); Carbon Dioxide 25 mmol/L (22-29); Chloride 105 mmol/L (98-107); Estimated GFR-MDRD Greater than 90; Glucose 103 mg/dL (70-105); Potassium 3.4 mmol/L (3.5-5.1); Protein, Total 6.4 g/dL (6.0-8.3); Sodium 139 mmol/L (136-145)
[2019-06-30] MEDS: Vancomycin HCl 25 MG/ML Oral PO SCH ×3 (06:43→18:08)
[2019-06-30] MEDS ORDERED: Potassium Chloride 20 MEQ in Premix Bag 1 BAG IVPB SCH (09:45)
[2019-06-30] MEDS: Potassium Chloride 10 MEQ TAB PO SCH (15:11)
[2019-06-30] MEDS: ALPRAZolam 0.25 MG TAB PO SCH ×2 (15:11→20:00)
[2019-06-30] MEDS: Potassium Chloride 20 MEQ in Premix Bag 1 BAG IVPB SCH (16:46)
[2019-06-30] MEDS: Promethazine 25 MG TAB PO PRN (16:49)
--- NOTE | 2019-06-30 17:39 | NM ---
EXAM: NM Gastric Empty Scan W/Meal DATE: 06/30/2019 12:00 AM INDICATION: Chronic nausea and vomiting COMPARISON: None. FINDIN.2 mCi of technetium 99m sulfur colloid orally was administered in egg. There was 0% emptying at 35 minutes. There was 13% emptying at 84 minutes. There was 41% emptying at 115 minutes. There was 58% emptying at 181 minutes. There was 73% emptying at 287 minutes. The T1/2 was 142 minutes. IMPRESSION:Prolonged gastric emptying.
--- NOTE | 2019-06-30 18:21 | PRG ---
DATE OF SERVICE: 06/30/2019 SUBJECTIVE: Ms. Sanchez is feeling okay today. There is no abdominal pain. She has some mild nausea, but has had no vomiting. She successfully completed her gastric emptying scan today, awaiting results. No diarrhea today, on vancomycin. OBJECTIVE: VITAL SIGNS: Temperature 98.5, pulse 81, blood pressure 146/98, and 96% oxygen saturation on room air. GENERAL: No acute distress. HEART: Regular rate and rhythm. LUNGS: Clear to auscultation bilaterally. ABDOMEN: Bowel sounds present. Soft, nontender to palpation. EXTREMITIES: No peripheral edema. LABORATORY STUDIES: WBC 7.4, hemoglobin 11.2, platelets 120. Sodium 139, potassium 3.4, BUN 7, creatinine 0.66, total bilirubin down to 1.6, alkaline phosphatase 125, AST 92, ALT 54, lipase 41. Urinalysis negative. Urine drug screen all negative. Gastric emptying scan report came back this evening after I visited with the patient. This demonstrates 0% emptying at 35 minutes, only 13% emptying at 84 minutes, 41% emptying at 115 minutes, 58% emptying at 181 minutes, and only 73% emptying at 287 minutes. The half time is prolonged to 142 minutes. This does represent delayed gastric emptying. ASSESSMENT AND PLAN: 1. Chronic nausea, vomiting. 2. Gastroparesis. A gastric emptying scan does indeed seem to suggest gastroparesis. Advised advancing diet as tolerated to gastroparesis diet, namely smaller and more frequent meals, low fat, low residue. Can discuss this further with the patient tomorrow or on an outpatient basis. Right now, the patient is getting good symptomatic relief with Phenergan. Going forward, we will have discussions with the patient on whether we want to try Reglan or not. 3. Clostridium difficile infection. It is unclear to what degree this is contributing to her nausea. Antigen and toxin are both positive, so this certainly needs to be treated. She has already started vancomycin. Continue 125 mg by mouth four times daily for a 14 day course. 4. Nonalcoholic steatohepatitis. This is confirmed on recent liver biopsy. LFTs are stable. 5. When the patient is tolerating her diet, she could be potentially discharged from a GI perspective, to follow up with us in the GI Clinic. Job ID: [id number]
[2019-06-30] MEDS: Metoclopramide HCl 10 MG TAB PO SCH (20:01)
[2019-07-01] MEDS: Vancomycin HCl 25 MG/ML Oral PO SCH ×4 (00:16→17:09)
[2019-07-01] MEDS: D5W-AA 4.25% with LYTES 1,000 ML IV SCH (06:00)
[2019-07-01 06:11] LABS: ALT (SGPT) 50 U/L (8-55); AST (SGOT) 80 U/L (5-34); Albumin 3.4 g/dL (3.5-5.0); Alkaline Phosphatase 114 U/L (40-110); Anion Gap 12 mmol/L (10-20); BUN (Urea Nitrogen) 8 mg/dL (7.0-18.7); Bilirubin, Total 1.5 mg/dL (0.2-1.2); Calc. Creatinine Clearance 128 mL/min (70-130); Carbon Dioxide 27 mmol/L (22-29); Chloride 103 mmol/L (98-107); Estimated GFR-MDRD Greater than 90; Globulin 2.9 g/dL (2.4-3.5); Glucose 103 mg/dL (70-105); Potassium 3.6 mmol/L (3.5-5.1); Protein, Total 6.3 g/dL (6.0-8.3); Sodium 138 mmol/L (136-145)
[2019-07-01] MEDS: Metoclopramide HCl 10 MG TAB PO SCH ×3 (08:23→17:07)
[2019-07-01] MEDS: ALPRAZolam 0.25 MG TAB PO SCH (08:23)
[2019-07-01] MEDS: Potassium Chloride 10 MEQ TAB PO SCH (08:23)
[2019-07-01 16:22] VITALS: BP 165/95; TEMP 98.9
[2019-07-01 19:08] LABS: Arsenic - Blood 10 ug/L (2-23); Lead - Blood None Detected ug/dL (0-4); Mercury - Blood None Detected ug/L (0.0-14.9)
--- NOTE | 2019-07-02 08:22 | PQF ---
Lily Sanchez VENKAT R MD [id number] CLINICAL DOCUMENTATION CLARIFICATION FORM: POST DISCHARGE Addendum to original discharge summary date: ____ Late entry note date: __ DATE: 07/02/2019 ATTN:DENYS SANDOVAL MD Please exercise your independent, professional judgment in responding to the clarification form. Clinical indicators are provided on the bottom of this form for your review Please check appropriate box(s): [ ] Nausea/vomiting due to Gastroparesis [ ] Nausea/vomiting due to Clostridium difficile infection [ ] Nausea/vomiting due to Non alcoholic steatohepatitis [ ] Nausea/vomiting due to Eosinophilic esophagitis [ ] Nausea/vomiting due to unspecified cause [ ] Nausea/vomiting due to other diagnosis [ y] Unable to determine For continuity of documentation, please document condition throughout progress notes and discharge summary. Thank You. CLINICAL INDICATORS - SIGNS / SYMPTOMS / LABS - Chronic nausea, vomiting-Progress note, 06/30, Varinder Kennedy MD - Gastroparesis-Progress note, 06/30, Varinder Kennedy MD - Nonalcoholic steatohepatitis-Progress note, 06/30, Varinder Kennedy MD - Clostridium difficile infection-Progress note, 06/30, Varinder Kennedy MD - Biopsies of the esophagus were ultimately normal for Eosinophil esophagitis- Consultation report, 06/28, Taj Garland MD RISK FACTORS - PMH s/p Cholecystectomy- H&P, 06/27, DENYS SANDOVAL MD - PM s/p Appendectomy -H&P, 06/27, DENYS SANDOVAL MD - Protein calorie malnutrition- H&P, 06/27, DENYS SANDOVAL MD TREATMENTS: - Vancomycin.IV- JUL,06/29 to 01/29 - Ondansetron.IV- JUL,06/29 to 01/29 (This form is maintained as a part of the permanent medical record) [id number] , [employer]. All Rights Reserved [email or web address]
--- NOTE | 2019-07-02 23:28 | PQF ---
Lily Sanchez VENKAT R MD [id number] CLINICAL DOCUMENTATION CLARIFICATION FORM: POST DISCHARGE Addendum to original discharge summary date: ____ Late entry note date: __ Date: 07/02/2019 ATTN: DENYS SANDOVAL MD Please exercise your independent, professional judgment in responding to the clarification form. Clinical indicators are provided on the bottom of this form for your review Please check appropriate box(s): [ y ] Protein Calorie Malnutrition: [ ] Mild [ y] Moderate [ ] Severe [ ] Unspecified Protein calorie Malnutrition [ ] Unable to determine CLINICAL INDICATORS - SIGNS / SYMPTOMS / LABS - Protein calorie malnutrition with dysphagia and weight loss, etiology not clear- H&P, 06/27, DENYS SANDOVAL MD - Nausea, vomiting, diarrhea, not eating- H&P, 06/27, DENYS SANDOVAL MD - she also has been losing weight- H&P, 06/27, DENYS SANDOVAL MD - BMI: 28.7- FNS assessment, 06/28 - Albumin: 3.4L-FNS assessment, 07/01 - 14% weight loss over the past 3 months-FNS assessment, 07/01 RISK FACTORS - PMH: s/p Cholecystectomy- H&P, 06/27, DENYS SANDOVAL MD - PMH s/p Appendectomy- H&P, 06/27, DENYS SANDOVAL MD TREATMENT: - RN is providing ensure clear - FNS assessment, 06/28 - Sodium chloride.IV- JUL, 06/27 Moderate Malnutrition (in acute illness) Energy Intake: <75% of estimated energy requirement for > 7 days Weight Loss: 1-2%/1 week; 5%/ 1 month; 7.5%/3 months Other: mild body fat loss; mild muscle mass loss; mild fluid accumulation; Severe Malnutrition (in acute illness) Energy Intake: < 50% of estimated energy requirement for > 5 days Weight Loss: >1-2%/1 week; >5%/1 month; >7.5%/3 months Other: moderate body fat loss; moderate muscle mass loss; moderate- severe fluid accumulation; measurably reduced client care consultant strength Moderate Malnutrition (in chronic illness) Energy Intake: <75% of estimated energy requirement for >1 month Weight Loss: 5%/1 month; 7.5%/3 months; 10%/6 months; 20%/1 year Other: mild body fat loss; mild muscle mass loss; mild fluid accumulation Severe Malnutrition (in chronic illness) Energy Intake: <75% of estimated energy requirement for >1 month Weight Loss: >5%/1 month; >7.5%/3 months; >10%/6 months; >20%/1 year Other: severe body fat loss; severe muscle mass loss; severe fluid accumulation ; measurably reduced client care consultant strength (This form is maintained as a part of the permanent medical record) 2014 [employer] All Rights Reserved Clarisse [email or web address]
== END 2019-07-01 17:30 | disposition home or self-care (01) | DRG 392 ==
LOC: ERS 13:15 → T4-A 19:46 → 3SE 19:57 → OBSVTOIN 19:57 → INTOOBSV 19:57 → T4-A 06-29 19:01
PROVIDERS: ADMIT Internal Medicine; ATTEND Internal Medicine
DX: R11.2 Nausea with vomiting, unspecified (principal); E44.0 Moderate protein-calorie malnutrition; I10 Essential (primary) hypertension; E78.5 Hyperlipidemia, unspecified; F32.9 Major depressive disorder, single episode, unspecified; F41.9 Anxiety disorder, unspecified; G20 Parkinson's disease; R13.10 Dysphagia, unspecified; K31.84 Gastroparesis; K75.81 Nonalcoholic steatohepatitis (NASH); R63.4 Abnormal weight loss; R00.0 Tachycardia, unspecified; Z90.49 Acquired absence of other specified parts of digestive tract; Z68.28 Body mass index [BMI] 28.0-28.9, adult
CPT/HCPCS: 36415; 78264; 80053; 80306; 81003; 82175; 83655; 83690; 83825; 85007; 85025; 85027; 87045; 87046; 87324; 87427; 87449; 87493; 93005; 96361; 96365; 96375; A9541; J1630; J2405; J2550; J2765; J3480; Q0162; Q0169

== ENCOUNTER 2019-07-20 01:56 | Emergency (ER) | payer SELFPAY ==
[2019-07-20] MEDS ORDERED: Metoclopramide HCl 10 MG/2 ML VIAL ONE (02:44)
[2019-07-20 02:54] LABS: #Monocytes 0.4 thou/uL (0.11-0.59); #Neutrophils 3.2 thou/uL (1.40-6.50); %Basophils 0.9 % (0.0-1.0); %Eosinophils 0.1 % (0.0-10.0); %Lymphocytes 34.6 % (21.0-51.0); %Monocytes 7.6 % (0.0-10.0); %Neutrophils 56.8 % (42.0-75.0); Hemoglobin 15.2 g/dL (12.0-16.0); Mean Corpuscular HGB CONC 33.6 g/dL (32.0-36.0); Mean Corpuscular Hemoglobin 38.2 pg (27.0-31.0); Mean Platelet Volume 8.9 fL (7.4-10.4); Platelet Count 151 thou/uL (130-400); RBC Distribution Width 14.9 % (11.5-14.5); Red Blood Cell (RBC) Count 3.97 mill/uL (4.20-5.40); White Blood Cell (WBC) Count 5.7 thou/uL (4.8-10.8)
[2019-07-20 03:05] LABS: Macrocytosis SLIGHT = 6-15 cells (100X) (0-5/hpf); Target Cells SLIGHT = 2-5 cells (100X) (0-1/hpf)
[2019-07-20] MEDS ORDERED: Haloperidol Lactate 5 MG/ML VIAL ONE (03:05)
[2019-07-20 03:06] LABS: ALT (SGPT) 259 U/L (8-55); AST (SGOT) 467 U/L (5-34); Albumin 3.4 g/dL (3.5-5.0); Alkaline Phosphatase 301 U/L (40-110); Anion Gap 25 mmol/L (10-20); BUN (Urea Nitrogen) 12 mg/dL (7.0-18.7); Bilirubin, Total 4.7 mg/dL (0.2-1.2); Calc. Creatinine Clearance 0 mL/min (70-130); Calcium 9.1 mg/dL (7.8-10.44); Carbon Dioxide 27 mmol/L (22-29); Chloride 87 mmol/L (98-107); Estimated GFR-MDRD 63; Globulin 3.9 g/dL (2.4-3.5); Glucose 126 mg/dL (70-105); Lipase 22 U/L (8-78); Potassium 3.7 mmol/L (3.5-5.1); Protein, Total 7.3 g/dL (6.0-8.3); Sodium 135 mmol/L (136-145)
== END 2019-07-20 05:02 | disposition home or self-care (01) ==
LOC: ERS 01:56
DX: R74.0 Nonspecific elevation of levels of transaminase and lactic acid dehydrogenase [LDH] (principal); R11.2 Nausea with vomiting, unspecified; I10 Essential (primary) hypertension; E78.5 Hyperlipidemia, unspecified; K76.0 Fatty (change of) liver, not elsewhere classified; F32.9 Major depressive disorder, single episode, unspecified; Z79.899 Other long term (current) drug therapy
CPT/HCPCS: 80053; 83690; 85025; 96361; 96365; 96375; J1630; J2765

== ENCOUNTER 2019-12-16 10:28 | Emergency (ER) | payer SELFPAY ==
[2019-12-16] MEDS ORDERED: Ondansetron PF 4 MG/2 ML Vial ONE ×2 (10:39→12:07)
[2019-12-16 11:07] LABS: #Lymphocytes 1.5 thou/uL (1.20-3.40); #Monocytes 0.3 thou/uL (0.11-0.59); #Neutrophils 2.8 thou/uL (1.40-6.50); %Basophils 0.4 % (0.0-1.0); %Eosinophils 0.6 % (0.0-10.0); %Lymphocytes 31.8 % (21.0-51.0); %Neutrophils 60.1 % (42.0-75.0); Hemoglobin 14.9 g/dL (12.0-16.0); Mean Corpuscular HGB CONC 34.6 g/dL (32.0-36.0); Mean Corpuscular Hemoglobin 34.1 pg (27.0-31.0); Mean Corpuscular Volume 98.6 fL (78.0-98.0); Platelet Count 162 thou/uL (130-400); RBC Distribution Width 13.1 % (11.5-14.5); Red Blood Cell (RBC) Count 4.36 mill/uL (4.20-5.40); White Blood Cell (WBC) Count 4.7 thou/uL (4.8-10.8)
[2019-12-16] MEDS ORDERED: Multivitamins, Adult 10 ML, Thiamine HCl 100 MG, Folic Acid 1 MG in Dextrose 5 %-0.45 %... IV SCH (11:15)
[2019-12-16 11:33] LABS: ALT (SGPT) 212 U/L (8-55); AST (SGOT) 421 U/L (5-34); Albumin 3.8 g/dL (3.5-5.0); Alkaline Phosphatase 169 U/L (40-110); Anion Gap 17 mmol/L (10-20); BUN (Urea Nitrogen) 12 mg/dL (7.0-18.7); Bilirubin, Total 0.9 mg/dL (0.2-1.2); Calc. Creatinine Clearance 0 mL/min (70-130); Calcium 8.4 mg/dL (7.8-10.44); Carbon Dioxide 25 mmol/L (22-29); Chloride 94 mmol/L (98-107); Estimated GFR-MDRD 75; Globulin 3.6 g/dL (2.4-3.5); Glucose 120 mg/dL (70-105); Potassium 3.3 mmol/L (3.5-5.1); Protein, Total 7.4 g/dL (6.0-8.3); Sodium 133 mmol/L (136-145)
[2019-12-16] MEDS ORDERED: Lorazepam 2 MG/ML VIAL ONE ×2 (11:35→12:27)
[2019-12-16] MEDS ORDERED: Potassium Chloride 20 MEQ TAB ONE (12:07)
== END 2019-12-16 14:20 | disposition home or self-care (01) ==
LOC: ERS 10:28
DX: F10.239 Alcohol dependence with withdrawal, unspecified (principal); I10 Essential (primary) hypertension; E78.5 Hyperlipidemia, unspecified; K76.0 Fatty (change of) liver, not elsewhere classified; F41.9 Anxiety disorder, unspecified; F32.9 Major depressive disorder, single episode, unspecified; K31.84 Gastroparesis
CPT/HCPCS: 80053; 85025; 96361; 96365; 96366; 96375; 96376; J2060; J2405; J3411; J7042

== ENCOUNTER 2020-01-15 09:44 | Observation (INO) | payer OTHER, SELFPAY ==
[2020-01-15] MEDS ORDERED: Ondansetron PF 4 MG/2 ML Vial ONE ×2 (10:12→11:44)
[2020-01-15] MEDS ORDERED: Haloperidol Lactate 5 MG/ML VIAL ONE (10:12)
[2020-01-15 10:28] LABS: BHCG - Serum Negative (NEGATIVE); Pregs Control Background? CLEAR/WHITE (CLR/WHITE); Pregs Control Bar Appear? YES (CONTROL BAR)
[2020-01-15 10:30] LABS: #Lymphocytes 1.4 thou/uL (1.20-3.40); #Monocytes 0.4 thou/uL (0.11-0.59); #Neutrophils 3.5 thou/uL (1.40-6.50); %Basophils 0.8 % (0.0-1.0); %Eosinophils 0.4 % (0.0-10.0); %Lymphocytes 26.5 % (21.0-51.0); %Monocytes 7.5 % (0.0-10.0); %Neutrophils 64.9 % (42.0-75.0); Hemoglobin 14.6 g/dL (12.0-16.0); Mean Corpuscular Hemoglobin 35.4 pg (27.0-31.0); Mean Corpuscular Volume 98.6 fL (78.0-98.0); Mean Platelet Volume 7.2 fL (7.4-10.4); Platelet Count 174 thou/uL (130-400); RBC Distribution Width 12.9 % (11.5-14.5); Red Blood Cell (RBC) Count 4.12 mill/uL (4.20-5.40); White Blood Cell (WBC) Count 5.5 thou/uL (4.8-10.8)
[2020-01-15] MEDS ORDERED: Iopamidol-370 76% 500 ML 1 ML ONE (10:31)
[2020-01-15 10:47] LABS: ALT (SGPT) 177 U/L (8-55); AST (SGOT) 346 U/L (5-34); Albumin 3.6 g/dL (3.5-5.0); Alkaline Phosphatase 153 U/L (40-110); Anion Gap 24 mmol/L (10-20); BUN (Urea Nitrogen) 9 mg/dL (7.0-18.7); Bilirubin, Total 0.6 mg/dL (0.2-1.2); Calc. Creatinine Clearance 0 mL/min (70-130); Carbon Dioxide 20 mmol/L (22-29); Chloride 93 mmol/L (98-107); Estimated GFR-MDRD 53; Globulin 3.6 g/dL (2.4-3.5); Glucose 111 mg/dL (70-105); Lipase 40 U/L (8-78); Potassium 3.3 mmol/L (3.5-5.1); Protein, Total 7.2 g/dL (6.0-8.3); Sodium 134 mmol/L (136-145)
--- NOTE | 2020-01-15 11:06 | CT ---
CT Abdomen Pelvis W Con History: Epigastric tenderness with nausea and vomiting Comparison: CT abdomen and pelvis October 28, 2019 Findings: Lung bases are clear. No pericardial effusion. Hepatomegaly and diffuse hepatic steatosis. Prior cholecystectomy. No hydronephrosis. No abnormal renal enhancing mass. Appendix is not visualized. There is subtle subm ucosal edema and thickening of the cecal apex. Low-grade inflammatory stranding along the ascending colon mesenteric fat. Mild wall thickening and hyperemia of the distal sigmoid colon and rectosigmoid junction. Moderate facet arthrosis lower lumbar spine. The aortoiliac contour is nonaneurysmal. No retroperitoneal periaortic adenopathy. The adrenal glands and pancreas are unremarkable. Impression: 1. A few specks steatosis and hepatomegaly. 2. Scattered foci of mild colonic as well as rectal wall thickening with subtle inflammatory strandin g. Findings can be seen with chronic inflammatory bowel disease. 3. No evidence for bowel obstruction.
[2020-01-15] MEDS ORDERED: Acetaminophen 325 MG TAB PO PRN ×2 (14:14→16:57)
[2020-01-15 15:00] VITALS: BMI 29.5
[2020-01-15] MEDS ORDERED: Ondansetron ODT 4 MG TAB PO PRN (15:48)
[2020-01-15] MEDS ORDERED: Ondansetron PF 4 MG/2 ML Vial IVP PRN (15:48)
[2020-01-15] MEDS ORDERED: Guaifenesin DM 100-10/5 ML UDCUP PO PRN (16:57)
[2020-01-15] MEDS ORDERED: Acetaminophen 650 MG Suppository PR PRN (16:57)
[2020-01-15] MEDS: Metoclopramide HCl 10 MG TAB PO SCH (17:14)
[2020-01-15] MEDS: 1/2 NS w/KCL 20 mEq 1,000 ML IV SCH (17:16)
[2020-01-15] MEDS: Promethazine HCl 12.5 MG in Sodium Chloride 0.9% 50 ML IVPB PRN (17:21)
[2020-01-15 18:31] LABS: Lactic Acid 2.8 mmol/L (0.5-2.2)
--- NOTE | 2020-01-15 18:40 | HP ---
PRIMARY CARE PHYSICIAN: [facility] in [place]. CHIEF COMPLAINT: Intractable nausea and vomiting, unable to eat for 10 days. HISTORY OF PRESENT ILLNESS: This is a 49-year-old white female with a history of gastroparesis, developed over the last 1 to 2 years, diagnosed about 6 to 8 months ago. She has been on Reglan with meals 3 times a day along with Phenergan suppositories. She reports that she has had a flare of her symptoms for the last 10 days, no known triggers. However, she has chronic diarrhea since her gallbladder was removed last year and she cannot get the Phenergan suppository to stay in. She has been sipping on a little bit of Pedialyte and the only thing she can keep down. Other nutrient shakes or food will make her vomit every time. She also has intermittent vomiting just from her saliva. The patient also reports that yesterday she woke up with some blood in her mouth around her teeth. She is not sure where this came from. She has not had any bleeding since then. No sores or ulcers in her mouth and no nosebleed. She has not had any blood in the vomit when she vomits up and has not had any cough or hemoptysis. The patient went to get blood work done at the [facility] today; however, she was so weak that when she got out of the car and tried to walk inside, she had to lay down on the floor and she could not get back up, so they called an ambulance. The patient reports that her weakness has been getting worse over the last 10 days and her mother has had to bathe her most recent time. She did not have enough strength to do herself. She does have a persistent chronic yellowish diarrhea with no change in it. No other symptoms. The patient was seen in the emergency room. There, she was noted to have some guarding in the right upper quadrant, though she had no tenderness otherwise unless it was pressed on. She had a CT scan of the abdomen, which showed some mild fatty infiltrative disease of her liver and some intermittent edematous changes to the colon in various areas, consistent with possible inflammatory bowel disease. Otherwise, her blood work was unremarkable except for some chronic AST, ALT, and alkaline phosphatase elevations that she has had for over a year from her fatty liver. She was given IV fluids and Zofran in the emergency room with some improvement in her symptoms. However, she was still not able to hold anything down. The ER did talk with Dr. Cosme who the patient had an appointment with tomorrow and Dr. Cosme recommended watching her in the hospital overnight and that he was consulted. REVIEW OF SYSTEMS: CONSTITUTIONAL: No fevers. No chills. EYES: No double vision or blurred vision. ENT: No congestion, drainage, or sore throat. CARDIOVASCULAR: No chest pain. No palpitations or racing heart. PULMONARY: No coughing, wheezing, or shortness of breath. GASTROINTESTINAL: See HPI. No abdominal pain or changes in her bowel movements with increased nausea and vomiting. GENITOURINARY: No dysuria or hematuria. MUSCULOSKELETAL: No muscle aches or joint pains. SKIN: No rashes or lesions noted. NEUROLOGIC: The patient has some chronic tremors in her hands, some chronic intermittent straightening out of her toes while she is laying down into a very rigid pain that she does not notice until her children had pointed out and she has also had a little bit of quivering of her lips. She states that these symptoms had been going on for 2 years, though when I looked back at the patient's consult by Dr. Guillermo at previous admission, he did not mention anything about her lips quivering, but he did recommend she go to the movement disorder clinic in [place], which she has not done. PAST MEDICAL HISTORY: 1. Hypertension. 2. Hyperlipidemia. 3. Fatty liver disease. 4. Gastroparesis of unknown origin. PAST PSYCHIATRIC HISTORY: Anxiety disorder, on chronic benzodiazepines that the [facility] has been trying to slowly wean her off. PAST SURGICAL HISTORY: 1. Cholecystectomy. 2. Appendectomy. 3. . SOCIAL HISTORY: The patient previously drank alcohol, last time was before her previous admission in 10/2019. Previously smoked and has not for a while now. No illicit drug use. She lives with her mother and her 2 youngest teenage children. The patient reports that she is a full code, and should she be incapacitated, her children would be her medical decision maker and the point person would be her 2nd child, Tere Fowler. FAMILY HISTORY: Her half-sister has Crohn disease; however, this was inherited through the father's side, which they do not share the same father. No other significant family medical history. ALLERGIES: NO KNOWN DRUG ALLERGIES. MEDICATIONS: 1. Promethazine 25 mg per rectum twice a day as needed. 2. Potassium chloride 40 mEq daily. 3. Women's 50 Plus Daily Formula one tablet daily. 4. Metoclopramide 5 mg 3 times a day with meals. 5. Lexapro 20 mg daily. 6. Benadryl 50 mg at night as needed for insomnia. 7. Alprazolam 0.25 mg 3 times a day as scheduled. 8. Hydroxyzine 25 mg 3 times a day. PHYSICAL EXAMINATION: VITAL SIGNS: Blood pressure 131/85, pulse 90, respirations 16, temperature 98.3, and O2 saturation 98% on room air. GENERAL: This is a well-developed, overweight white female who appears tired, but otherwise in no distress. HEENT: Pupils equal, round, and reactive to light. Oropharynx clear without lesions, erythema, or exudate. No ulcerations or bleeding noted. NECK: Supple. No lymphadenopathy. No thyroid nodules or enlargement. HEART: Regular rate and rhythm. No murmurs, rubs, or gallops. LUNGS: Clear to auscultation bilaterally. No wheezes, crackles, or rhonchi. ABDOMEN: Soft. Tender to palpation in the right upper quadrant with some guarding. No masses or hepatosplenomegaly noted. Normoactive bowel sounds. No rebound tenderness. EXTREMITIES: No clubbing, cyanosis, or edema. SKIN: No rashes or lesions noted. NEUROLOGIC: The patient is able to move all extremities equally without loss of sensation. She did a couple of times during the exam stretch out with her toes toward the end of the bed and says that would happen spontaneously and what she has experienced for the last 2 years. She also had a mild symmetric tremor of upper and lower lips that did not impair her speech at all. She states that has been there for about 2 years also, not worsened by the Reglan use. PSYCHIATRIC: Alert and oriented x3. Normal mood and affect. LABORATORY DATA: CBC grossly normal. Complete metabolic panel is notable for a sodium of 134, potassium 3.3, chloride of 93, carbon dioxide of 20, anion gap of 24, BUN normal, creatinine normal, glucose of 111, AST 346, ALT 177, alkaline phosphatase 153 with normal bilirubin and albumin. Lipase was negative. All the rest of the CMP was normal. She did have a negative serum test. IMAGING STUDIES: CT scan with results as per the HPI. EKG done in the emergency room shows a heart rate of 97 beats per minute with a prolonged QT interval of 500, otherwise with left axis deviation, and no other abnormalities. ASSESSMENT AND PLAN: 1. Gastroparesis with intractable nausea and vomiting. We will give the patient IV Phenergan. We will hold any further Lexapro due to her use of sertraline and already existing prolonged QT interval. The Phenergan does have possible interactions with the Lexapro; however, she has used in the past along with her Lexapro without any difficulties. We will continue her Reglan 3 times a day and we will start her on a clear liquid diet and advance to a heart healthy diet as tolerated. Dr. Cosme has already been consulted by the emergency room and will get his recommendations. 2. Metabolic acidosis with a high anion gap, likely starvation ketosis. However, we will go ahead and check a serum ketone level and serum lactic acid and we will check a urinalysis. 3. Hypertension, currently well controlled without any need for home blood pressure medications. 4. Hypokalemia. We will continue the patient's home potassium. We will add potassium to her IV fluids right now and recheck in the morning. 5. Anxiety. We will resume the patient's Lexapro 3 times a day and alprazolam. 6. Insomnia. We will continue the patient's Benadryl. We will hold on the Atarax so as to not load any sort of confusion with the double dosing with Benadryl. 7. Gastrointestinal prophylaxis. We will put the patient on Pepcid twice a day. 8. Deep venous thrombosis prophylaxis. We will put the patient on Lovenox daily. 9. Code status. The patient is a full code. Should she be incapacitated, she has identified her daughter, Tere Fowler, as her medical decision maker. Job ID: [id number]
[2020-01-15] MEDS: Famotidine/PF 20 mg/2ml Vial SLOW IVP SCH (20:50)
[2020-01-15] MEDS: ALPRAZolam 0.25 MG TAB PO SCH (20:51)
[2020-01-15] MEDS: Loperamide HCl 2 MG CAP PO PRN ×2 (20:51→22:27)
[2020-01-15] MEDS ORDERED: diphenhydrAMINE 25 MG CAP PO SCH (21:00)
[2020-01-15] MEDS ORDERED: Promethazine HCl 25 MG SUPP PR SCH (21:00)
[2020-01-15] MEDS: Cholestyramine/Aspartame 4 gm Packet PO SCH (22:25)
[2020-01-16] MEDS: Promethazine HCl 12.5 MG in Sodium Chloride 0.9% 50 ML IVPB PRN ×2 (00:51→08:00)
[2020-01-16 01:09] LABS: Bilirubin Negative (Negative); Blood, Urine Negative (Negative); Clarity Clear (Clear); Glucose, Urine (Dipstick) Normal (Negative); Ketone, Urine Negative (Negative); Leukocyte Negative Leu/uL (Negative); Nitrite Negative (Negative); Protein, Urine (Dipstick) Negative (Neg-Trace); Urobilinogen Normal mg/dL (Less than 2); pH, Urine 6.5 (5.0-9.0)
--- NOTE | 2020-01-16 01:19 | CON ---
DATE OF CONSULTATION: 01/15/2020 CHIEF COMPLAINT: Nausea and vomiting. HISTORY OF PRESENT ILLNESS: Ms. Sanchez is a 49-year-old woman who has been evaluated by the GI service initially with Dr. Reeder going back to March 2019. She has been having episodes of nausea and vomiting and diarrhea that occur around once per month and lasts for over a week at a time. This episode started 10 days ago and she felt so weak that she could not stand and she was not able to keep down fluids and she was having diarrhea with liquidy yellow stool every hour and therefore, she was sent on to the emergency room and admitted to the hospital. She has had multiple CT scans of the abdomen and pelvis including today and also back in October. CT scan today did show some areas of colon wall thickening and subtle inflammatory stranding. CT back in October did not show this. She was demonstrated to have fatty liver. Previously, she has had EGD and colonoscopy in April 2019. The EGD was normal. She had esophageal biopsies due to dysphagia, which were negative. She had an empiric dilation of the esophagus. She had a colonoscopy, which was normal to the terminal ileum except for a 2 mm tubular adenoma, which was removed from the sigmoid colon. She had a gastric emptying scan that was mildly delayed with 73% emptying at 287 minutes. She had a liver biopsy back in March, which demonstrated steatohepatitis. She was positive for C diff toxin back in June 2019, which was treated. She has had some cramping lower abdominal pain that flares up during these episodes. She has yellowish liquid stools up every hour. Her weight has been stable over the last 6 months, but she did have weight loss when she was initially evaluated by Dr. Reeder. Drug screens have previously been negative for cannabis. PAST MEDICAL HISTORY: Steatohepatitis, hypertension, delayed gastric emptying and recurrent nausea and vomiting episodes, C diff colitis. PAST SURGICAL HISTORY: Cholecystectomy, , appendectomy, colonoscopy with removal of a tubular adenoma, and upper endoscopy. FAMILY HISTORY: Negative for GI malignancy or inflammatory bowel disease. SOCIAL HISTORY: Occasional alcohol previously. No drugs. She has used E-cigarettes previously. ALLERGIES: NO KNOWN DRUG ALLERGIES. OUTPATIENT MEDICATIONS: 1. Metoclopramide 5 mg three times a day. 2. Lexapro. 3. Alprazolam. 4. Multiple vitamin. 5. Hydroxyzine. REVIEW OF SYSTEMS: Negative x10 systems reviewed except as stated in the history of present illness. PHYSICAL EXAMINATION: VITAL SIGNS: Temperature 99.0, pulse 92, and blood pressure 121/86. GENERAL: She is in no acute distress. Alert and oriented x3. HEENT: Eyes have no scleral icterus. Oropharynx is clear without lesions. No cervical or supraclavicular lymphadenopathy. LUNGS: Clear to auscultation bilaterally. HEART: Regular rate and rhythm without murmur. ABDOMEN: Soft, nontender, and nondistended. Bowel sounds are present. She did have some mild tenderness in the right lower quadrant to palpation of her abdomen. EXTREMITIES: No lower extremity edema. NEUROLOGIC: Cranial nerves are grossly intact. LABORATORY DATA: Sodium 134, potassium 3.3, creatinine 1.09. Bilirubin 0.6, AST 346, ALT 177, alkaline phosphatase 153, albumin 3.6, and lipase 40. IMPRESSION: 1. Chronic nausea and vomiting. Idiopathic gastroparesis versus cyclical vomiting. She had a gastric emptying scan with delayed gastric emptying. She has been treated with metoclopramide, however continues to have these episodes. Upper endoscopy and colonoscopy and CT scan have been negative previously. 2. Acute on chronic diarrhea. CT scan shows some inflammatory changes suspected around the colon versus nondistention. She had Clostridium difficile back in June. I have ordered a repeat Clostridium difficile stool sample now and likely, we will treat empirically if stool studies are nondiagnostic or uncollected. 3. Steatohepatitis. RECOMMENDATIONS: 1. Stool has been sent for C diff culture, ova and parasite, and lactoferrin. 2. Urine drug screen has been requested and previously has been negative for cannabis. 3. Supportive care with IV fluids and antiemetics and a trial of a clear liquid diet. 4. If we do not have results on the C diff by tomorrow, we would treat empirically with vancomycin. 5. Also given her prior cholecystectomy and yellow liquidy stool, a trial of cholestyramine would also be appropriate. Job ID: [id number]
[2020-01-16 01:25] LABS: Amphetamine Not Detected (NotDetected); Barbiturates Screen Not Detected (NotDetected); Benzodiazepine Screen Detected (NotDetected); Cocaine Metabolite Screen Not Detected (NotDetected); Medtox Control Line Valid? VALID (VALID); Medtox Reader # READER 4; Methadone Not Detected (NotDetected); Methamphetamine Not Detected (NotDetected); Opiate Screen Not Detected (NotDetected); Oxycodone Screen Not Detected (NotDetected); Phencyclidine (PCP) Not Detected (NotDetected); THC/Cannabinoid Screen Not Detected (NotDetected); Tricyclic Screen Not Detected (NotDetected)
[2020-01-16] MEDS: 1/2 NS w/KCL 20 mEq 1,000 ML IV SCH (04:56)
[2020-01-16 06:46] LABS: Band 5 % (5-11); Eosinophils 2 % (0-10); Hemoglobin 12.4 g/dL (12.0-16.0); Lymphocytes 48 % (21-51); MDiff Complete? YES; Mean Corpuscular Hemoglobin 34.4 pg (27.0-31.0); Mean Platelet Volume 7.5 fL (7.4-10.4); Monocytes 1 % (0-10); Neutrophil 44 % (42-75); Platelet Count 144 thou/uL (130-400)
[2020-01-16 06:47] LABS: Anion Gap 15 mmol/L (10-20); BUN (Urea Nitrogen) 5 mg/dL (7.0-18.7); Calc. Creatinine Clearance 117 mL/min (70-130); Calcium 7.5 mg/dL (7.8-10.44); Carbon Dioxide 24 mmol/L (22-29); Chloride 102 mmol/L (98-107); Estimated GFR-MDRD 81; Glucose 90 mg/dL (70-105); Sodium 138 mmol/L (136-145)
[2020-01-16 07:31] VITALS: BP 136/89; TEMP 98.5
[2020-01-16] MEDS: Metoclopramide HCl 10 MG TAB PO SCH ×2 (08:00→11:43)
[2020-01-16] MEDS: ALPRAZolam 0.25 MG TAB PO SCH ×2 (08:00→15:10)
[2020-01-16] MEDS: Famotidine/PF 20 mg/2ml Vial SLOW IVP SCH (08:01)
--- NOTE | 2020-01-16 08:55 | PDOC.HOSPP ---
- Subjective Encounter Date: 01/16/20 Encounter Time: 11:00 Subjective: Patient with marked improvement in symptoms. No nausea or vomiting today. Able to tolerate some Ensure and soup broth. Diarrhea much improved with Cholestyramine. Seen by neurology this AM and getting an EEG soon. - Objective Vital Signs & Weight: Vital Signs (12 hours) Temp Pulse Resp BP Pulse Ox 01/16/20 07:28 98.5 F 77 16 136/89 97 01/16/20 04:18 98.0 F 80 16 151/94 H 98 01/15/20 23:25 98.2 F 80 16 145/94 H 97 Weight Weight 182 lb 12.8 oz I&O: 01/15/20 01/16/20 01/17/20 06:59 06:59 06:59 Intake Total 280 Output Total 0 Balance 280 Result Diagrams: 01/16/20 05:39 01/16/20 05:39 Hospitalist ROS - Review of Systems Constitutional: denies: fever, chills Respiratory: denies: cough, shortness of breath Cardiovascular: denies: chest pain, palpitations Gastrointestinal: reports: diarrhea. denies: nausea, vomiting, abdominal pain, constipation - Medication Medications: Active Medications Generic Name Dose Route Start Last Admin Trade Name Freq PRN Reason Stop Dose Admin Alprazolam 0.25 mg 01/15/20 21:00 01/16/20 08:00 Xanax PO 0.25 mg TID CARLITA Administration Cholestyramine Resin 4 gm 01/15/20 22:00 01/15/20 22:25 Questran Light PO 4 gm 1000,2200 CARLITA Administration Diphenhydramine HCl 50 mg 01/15/20 21:00 01/15/20 20:51 Benadryl PO 50 mg HS CARLITA Administration Enoxaparin Sodium 40 mg 01/16/20 09:00 01/16/20 08:02 Lovenox SC 40 mg 0900 CARLITA Administration Escitalopram Oxalate 20 mg 01/16/20 09:00 01/16/20 08:00 Lexapro PO 20 mg DAILY CARLITA Administration Famotidine 20 mg 01/15/20 21:00 01/16/20 08:01 Pepcid SLOW IVP 20 mg Q12HR CARLITA Administration Potassium Chloride/Sodium Chloride 1,000 mls @ 75 mls/hr 01/15/20 15:45 01/15 04:56 1/2 Ns W/Kcl 20 Meq IV 1,000 mls .[id number] CARLITA Administration Promethazine HCl 12.5 mg/ 50.5 mls @ 202 mls/hr 01/15/20 15:52 01/16/20 08:00 Sodium Chloride IVPB 50.5 mls Q6H PRN Administration Nausea/Vomiting Iron/Minerals/Multivitamins 1 tab 01/16/20 09:00 01/16/20 08:01 Theragran M PO 1 tab DAILY CARLITA Administration Loperamide HCl 2 mg 01/15/20 16:57 01/15/20 22:27 Imodium PO 2 mg PRN PRN Administration Diarrhea/Loose Stools Metoclopramide HCl 5 mg 01/15/20 17:00 01/16/20 08:00 Reglan PO 5 mg TID-WM CARLITA Administration Potassium Chloride 40 meq 01/16/20 09:00 01/16/20 08:00 K-Dur PO 40 meq DAILY CARLITA Administration - Exam General Appearance: NAD, awake alert ENT: moist mucosa Heart: RRR, no murmur, no gallops, no rubs Respiratory: CTAB, no wheezes, no rales, no ronchi Gastrointestinal: soft, non-tender, non-distended, normal bowel sounds Neurological - other findings: mild mouth tremor and tremor of hands Psychiatric: normal affect, normal behavior, A&O x 3 Hosp A/P (1) Intractable nausea and vomiting Code(s): R11.2 - NAUSEA WITH VOMITING, UNSPECIFIED Status: Acute (2) Gastroparesis Code(s): K31.84 - GASTROPARESIS Status: Chronic (3) Inflammation of colonic mucosa Code(s): K52.9 - NONINFECTIVE GASTROENTERITIS AND COLITIS, UNSPECIFIED Status : Acute (4) Chronic diarrhea Code(s): K52.9 - NONINFECTIVE GASTROENTERITIS AND COLITIS, UNSPECIFIED Status : Chronic (5) Tardive dyskinesia Code(s): G24.01 - DRUG INDUCED SUBACUTE DYSKINESIA Status: Chronic (6) Hypokalemia Code(s): E87.6 - HYPOKALEMIA Status: Acute - Plan Dr. Cosme consulted, adding cholestyramine due to previous cholecystectomy and chronic diarrhea. Reglan and Phenergan for symptoms and attempt liquid diet, advance as tolerated. C.diff negative, all other stool studies negative. Symptoms markedly better this AM, possibly discharge home later today if holding down diet. Neurology consult for chronic lip tremor in the setting of reglan use- thinks probably tardive dyskinesia, but longstanding, not specifically worse with the Reglan and not really any alternative to that to help her be able to eat. Does recommend f/u with psychiatry outpatient to try and adjust psych meds to minimize chance of worsening symptom. Hypokalemia- was able to tolerate her oral potassium this morning, will check magnesium level and recheck potassium later this afternoon before discharge. DVT Proph: Lovenox GI Proph: Pepcid BID
[2020-01-16] MEDS ORDERED: Enoxaparin Sodium 40 MG/0.4 ML SYRINGE SC SCH (09:00)
[2020-01-16] MEDS ORDERED: Multivitamin W/ Minerals 1 TAB PO SCH (09:00)
[2020-01-16] MEDS ORDERED: Escitalopram Oxalate 20 mg Tablet PO SCH (09:00)
[2020-01-16] MEDS ORDERED: Potassium Chloride 20 MEQ TAB PO SCH (09:00)
[2020-01-16] MEDS: Cholestyramine/Aspartame 4 gm Packet PO SCH (09:45)
[2020-01-16] MEDS ORDERED: Potassium Chloride 40 MEQ in Sodium Chloride 0.9% 250 ML 250 ML IVPB SCH (11:00)
--- NOTE | 2020-01-16 12:47 | CON ---
NEUROLOGY CONSULTATION DATE OF CONSULTATION: 01/16/2020 REASON FOR CONSULTATION: Tardive dyskinesia. HISTORY OF PRESENT ILLNESS: Ms. Lily Sanchez is a 49-year-old female with history significant for gastroparesis, which developed over the last 1 to 2 years and has been on Reglan along with Phenergan suppositories, presented because of nausea, vomiting, and a flare of her symptoms on 01/15/2020. She has been treated for nausea and vomiting. However, the patient also mentioned that she has been having abnormal movements of her jaw and upper and lower extremity tremors since the last 7 years, and she is concerned about them. Most of the time, these abnormal movements occur and she has no recollection of it, and she was told by her children that she has been shaking. The patient denies any focal weakness, focal paresthesias, blurred vision, loss of vision, loss of consciousness, or altered awareness associated with these episodes. These occur several times a day. The patient has been currently on Reglan since June, and before that, she has been on Zoloft for the last several years and several antidepressants since the age of 15. The patient denies chest pain, recent illness, or recent sick contacts. REVIEW OF SYSTEMS: All 14 systems were reviewed and were negative except the pertinent positive and negative mentioned in the HPI. PAST MEDICAL HISTORY: Hypertension, hyperlipidemia, fatty liver disease, gastroparesis. PAST PSYCHIATRIC HISTORY: Anxiety disorder, on chronic benzodiazepine. PAST SURGICAL HISTORY: Cholecystectomy, appendectomy, and section. SOCIAL HISTORY: The patient used to have a history of alcohol abuse. Denies smoking or illegal drug abuse. She lives with the mother and two teenage children. FAMILY HISTORY: She has family history of Crohn disease. ALLERGIES: NO KNOWN DRUG ALLERGIES. MEDICATIONS: 1. Promethazine 25 mg per rectum twice a day. 2. Potassium chloride 40 mEq daily. 3. Women's 50 Plus Daily Formula one tablet daily. 4. Metoclopramide 5 mg three times a day with meals. 5. Lexapro 20 mg daily. 6. Benadryl 50 mg at night as needed for insomnia. 7. Alprazolam 0.5 mg daily as scheduled. 8. Hydroxyzine Objective Vital Signs & Weight: Vital Signs (12 hours) Temp Pulse Resp BP Pulse Ox 01/16/20 07:28 98.5 F 77 16 136/89 97 01/16/20 04:18 98.0 F 80 16 151/94 H 98 01/15/20 23:25 98.2 F 80 16 145/94 H 97 Weight Weight 182 lb 12.8 oz I&O: 01/15/20 01/16/20 01/17/20 06:59 06:59 06:59 Intake Total 280 Output Total 0 Balance 280 Active Medications Generic Name Dose Route Start Last Admin Trade Name Freq PRN Reason Stop Dose Admin Alprazolam 0.25 mg 01/15/20 21:00 01/16/20 08:00 Xanax PO 0.25 mg TID CARLITA Administration Cholestyramine Resin 4 gm 01/15/20 22:00 01/15/20 22:25 Questran Light PO 4 gm 1000,2200 CARLITA Administration Diphenhydramine HCl 50 mg 01/15/20 21:00 01/15/20 20:51 Benadryl PO 50 mg HS CARLITA Administration Enoxaparin Sodium 40 mg 01/16/20 09:00 01/16/20 08:02 Lovenox SC 40 mg 0900 CARLITA Administration Escitalopram Oxalate 20 mg 01/16/20 09:00 01/16/20 08:00 Lexapro PO 20 mg DAILY CARLITA Administration Famotidine 20 mg 01/15/20 21:00 01/16/20 08:01 Pepcid SLOW IVP 20 mg Q12HR CARLITA Administration Potassium Chloride/Sodium Chloride 1,000 mls @ 75 mls/hr 01/15/20 15:45 01/15 04:56 1/2 Ns W/Kcl 20 Meq IV 1,000 mls .[id number] CARLITA Administration Promethazine HCl 12.5 mg/ 50.5 mls @ 202 mls/hr 01/15/20 15:52 01/16/20 08:00 Sodium Chloride IVPB 50.5 mls Q6H PRN Administration Nausea/Vomiting Iron/Minerals/Multivitamins 1 tab 01/16/20 09:00 01/16/20 08:01 Theragran M PO 1 tab DAILY CARLITA Administration Loperamide HCl 2 mg 01/15/20 16:57 01/15/20 22:27 Imodium PO 2 mg PRN PRN Administration Diarrhea/Loose Stools Metoclopramide HCl 5 mg 01/15/20 17:00 01/16/20 08:00 Reglan PO 5 mg TID-WM CARLITA Administration Potassium Chloride 40 meq 01/16/20 09:00 01/16/20 08:00 K-Dur PO 40 meq DAILY CARLITA Administration - Exam General Appearance: NAD, awake alert ENT: moist mucosa Heart: RRR, no murmur, no gallops, no rubs Respiratory: CTAB, no wheezes, no rales, no ronchi Gastrointestinal: soft, non-tender, non-distended, normal bowel sounds Neurological - Mental status, the patient is alert and oriented to person, place , and time. Recent and remote memory is intact. Speech is clear. Motor, muscle tone and bulk are normal. Strength 5/5 bilaterally. Sensory intact. Cerebellar, finger-nose testing intact. Gait deferred due to the patient's safety reason. The patient has been seen by Dr. Guillermo in the previous admission, and he recommended to go to a movement disorder specialist in [place], which she has not followed up. DATA REVIEWED: I reviewed the labs. CBC was essentially unremarkable, and metabolic panel is significant for sodium of 134, potassium of 3.3. Imaging study shows CT scan, which did not reveal any acute intracranial pathology. EKG showed sinus tachycardia. ASSESSMENT AND PLAN: (1) Intractable nausea and vomiting Code(s): R11.2 - NAUSEA WITH VOMITING, UNSPECIFIED Status: Acute (2) Gastroparesis Code(s): K31.84 - GASTROPARESIS Status: Chronic (3) Inflammation of colonic mucosa Code(s): K52.9 - NONINFECTIVE GASTROENTERITIS AND COLITIS, UNSPECIFIED Status : Acute (4) Chronic diarrhea Code(s): K52.9 - NONINFECTIVE GASTROENTERITIS AND COLITIS, UNSPECIFIED Status : Chronic (5) Tardive dyskinesia Code(s): G24.01 - DRUG INDUCED SUBACUTE DYSKINESIA Status: Chronic (6) Hypokalemia Code(s): E87.6 - HYPOKALEMIA Status: Acute Ms. Sanchez is admitted for gastroparesis with intractable nausea and vomiting and has been consulted for abnormal movements of the jaw and upper and lower extremity, most likely tardive dyskinesia due to chronic use of antipsychotics and also can be exacerbated because of recent use of Reglan. The only treatment is to find a suitable medication which does not have the extrapyramidal side effects and wean her off as outpatient. Neuro checks every 4 hours. Continue home medications. Continue medical management per primary team. We will do an EEG since she has no recollection of these events to rule out cortical irritability. The patient should follow up for more in-depth workup with a movement disorder specialist in [place] and also with a psychiatrist to find out a suitable anticonvulsant and need to be tapered off Reglan at some point. The plan discussed in detail with the patient and also with the primary provider, Dr. Maynor Parham. We will continue to follow. Thank you for the consult. Job ID: [id number] MTDD
[2020-01-16] MEDS ORDERED: Magnesium 2 GM/50 ML 2 GM in Premix Bag 1 BAG IVPB SCH (13:15)
[2020-01-16 13:48] LABS: SARS-CoV-2 MS2 Positive; SARS-CoV-2 N Gene Negative; SARS-CoV-2 S Gene Negative; SARS-CoV-2 by NAA Not Detected (NotDetected); SARS-CoV-2 orf1ab Negative
--- NOTE | 2020-01-16 14:32 | EEG ---
DATE OF SERVICE: 01/16/2020 ATTENDING PHYSICIAN: Chhaya Braga MD This EEG was performed using 24-channel ipDatateltek video digital EEG machine with 24-disk electrodes. This was an extended 2 hours 6 minutes of inpatient video EEG recording. Digital analysis of the EEG was done for spike and seizure detection, which revealed no abnormalities. BACKGROUND: The posterior background rhythm is 9 to 10 hertz. The background rhythm attenuates with eye opening and enhances with eye closure. HYPERVENTILATION: No significant response seen with hyperventilation. PHOTIC STIMULATION: Bioccipital symmetric driving responses observed. SLEEP: Drowsiness and sleep are observed. SPELLS: The patient had episodes of lower extremity shaking, not associated with any abnormal EEG correlate. EEG DIAGNOSIS: Normal awake, drowsy, and sleep EEG. Job ID: [id number]
[2020-01-16 14:48] LABS: Potassium 4.2 mmol/L (3.5-5.1)
--- NOTE | 2020-01-16 17:55 | PRG ---
DATE OF SERVICE: 01/16/2020 SUBJECTIVE: Ms. Sanchez feels much better today. She is tolerating some crackers and liquids. PHYSICAL EXAMINATION: VITAL SIGNS: Temperature 98.5, pulse 77, blood pressure 136/89. GENERAL: She is in no acute distress. Alert and oriented x3. LUNGS: Clear to auscultation bilaterally. HEART: Regular rate and rhythm without murmur. ABDOMEN: Soft, nontender, and nondistended. Bowel sounds are present. EXTREMITIES: No lower extremity edema. LABORATORY DATA: White blood cell count 5.0, hemoglobin 12.2, platelets 144. Creatinine 0.76. IMPRESSION: 1. Gastroparesis versus cyclical vomiting syndrome. She has delayed gastric emptying by nuclear medicine scan from earlier this year. 2. Steatohepatitis. 3. She was diagnosed with possible tardive dyskinesia by Neurology today. Her symptoms are not typical. Nonetheless, given this is a potential diagnosis, I recommend discontinuing her metoclopramide completely now. RECOMMENDATIONS: 1. Discontinue metoclopramide. 2. Discussed gastroparesis diet with the patient including small frequent meals, liquids and solid portions of meals, and avoiding high-fiber foods. 3. She is again encouraged to follow up in GI clinic for management of her long-term issues with her stomach and liver. 4. The patient is being discharged home this evening. Job ID: [id number]
[2020-01-16] MEDS ORDERED: Magnesium Oxide 400 MG TAB PO SCH (21:00)
--- NOTE | 2020-01-17 06:28 | DIS ---
DATE OF ADMISSION: 01/15/2020 DATE OF DISCHARGE: 01/16/2020 PRIMARY CARE PHYSICIAN: LAVERNE at [facility] in [place]. REASON FOR ADMISSION: Intractable nausea and vomiting. DIAGNOSES AT DISCHARGE: 1. Intractable nausea, vomiting, resolved. 2. Gastroparesis. 3. Inflammation of colonic mucosa. 4. Chronic diarrhea secondary to cholecystectomy. 5. Tardive dyskinesia, longstanding. 6. Hypokalemia, resolved. 7. Hypomagnesemia, being replaced. PROCEDURES: 1. CT of the abdomen and pelvis with contrast showing a few specks of steatosis and hepatomegaly. Scattered foci of mild colonic as well as rectal wall thickening with subtle inflammatory stranding and no evidence of bowel obstruction. 2. EEG, normal EEG. CONSULTATIONS: 1. Gastroenterology, Dr. Cosme. 2. Neurology, Dr. Braga. SUMMARY OF HOSPITAL COURSE: This is a 49-year-old white female with a history of longstanding nausea, vomiting, and diarrhea symptoms. She has had yellowish frequent diarrhea since her cholecystectomy last year, but for the last couple of years she has been having worsening nausea and vomiting when she eats more solid foods. She has been diagnosed with poor mobility and gastroparesis of unknown origin and was earlier this year, put on Reglan with each meals along with Phenergan suppositories. The patient reports that for the last 10 days, the symptoms have gotten a lot worse in spite of taking the Reglan and she states that because of her frequent yellow diarrhea that she had a hard time getting the Phenergan suppositories to stay in. She has not been able to hold food down at all, just sipping on some Pedialyte and on the day of admission she became so weak and after she got to the [facility] [facility] to get some blood work done, she laid on the floor and could not get back up, so they called an ambulance. She did have a CT scan done in the ER with above results. She had some chronic AST, ALT and alkaline phosphatase elevations that were stable from her fatty liver. She was given some Zofran, IV fluids in the Emergency with some improvement in her symptoms. We did start her on IV Phenergan and then consulted Dr. Cosme. He did run studies on her stools to make sure she did not have C. difficile or an infection and all of the studies came back negative, so he started her on cholestyramine, which markedly improved her diarrheal symptoms. The patient did have low potassium which was replaced. She has also had her magnesium checked, which is quite low, so she is going to IV replacement as she is being continued on oral supplements. The day of discharge, the patient was able to tolerate a liquid diet well and then she was able to eat some crackers without nausea or vomiting. Her strength is better. She has been getting up and ambulating and so we are discharging her home. The patient has had a tremor of her hands, some straightening out symptoms in her feet and then some quivering of her lips. These symptoms are going on for at least 7 years and possibly got worsened over the last 1-2 years. There has been no worsening of symptoms with initiation of metoclopramide earlier in the year. I did consult Dr. Braga for concern about possible tardive dyskinesia. She did agree that was most likely what the patient had. If the patient really needs the Reglan to eat she recommended her following with a psychiatrist to see about changing her psychiatric medications around to something that is less likely to contribute to those symptoms. DISCHARGE MANAGEMENT: Discharged home. ACTIVITY: As tolerated. DIET: Healthy heart diet. DISCHARGE MEDICATIONS: 1. Cholestyramine 4 g p.o. twice a day, #60 packets dispensed. 2. Magnesium oxide 400 mg twice a day, #60 tablets dispensed. 3. Promethazine suppository 25 mg per rectum twice a day, #30 suppositories dispensed. 4. Alprazolam 0.25 mg three times a day. 5. Diphenhydramine 50 mg at night. 6. Lexapro 20 mg daily. 7. Women's 50 Plus daily formula 1 tablet daily. 8. Potassium chloride 40 mEq p.o. daily. 9. Hydroxyzine 25 mg 3 times a day. 10. Metoclopramide 5 mg 3 times a day. (On discussing with patient, Dr. Cosme elicited that it hasn't really helped so he had the patient stop this medications. FOLLOW UP: At [facility] in 7 days. Job ID: [id number] MTDD
[2020-01-20 15:38] LABS: Routine O & P Final report (.)
== END 2020-01-16 18:46 | disposition home or self-care (01) ==
LOC: ERS 09:44 → T4-B 12:37
PROVIDERS: ADMIT Emergency Medicine; ATTEND Emergency Medicine
DX: R11.2 Nausea with vomiting, unspecified (principal); K31.84 Gastroparesis; K52.89 Other specified noninfective gastroenteritis and colitis; G24.01 Drug induced subacute dyskinesia; E87.6 Hypokalemia; E83.42 Hypomagnesemia; I10 Essential (primary) hypertension; E78.5 Hyperlipidemia, unspecified; F41.9 Anxiety disorder, unspecified; K75.81 Nonalcoholic steatohepatitis (NASH); E87.2 Acidosis; G47.00 Insomnia, unspecified; F10.11 Alcohol abuse, in remission; Z87.891 Personal history of nicotine dependence; Z79.899 Other long term (current) drug therapy; Z90.49 Acquired absence of other specified parts of digestive tract; Z20.828 Contact with and (suspected) exposure to other viral communicable diseases
CPT/HCPCS: 36415; 74177; 80048; 80053; 80306; 81003; 82010; 83605; 83630; 83690; 83735; 84703; 85025; 87045; 87046; 87177; 87186; 87324; 87328; 87329; 87427; 87449; 87635; 93005; 95712; 95816; 95819; 95957; 96361; 96365; 96372; 96374; 96375; 96376; G0378; J1630; J1650; J2405; J2550; J3475; Q0163; Q9967; S0028; U0003

== ENCOUNTER 2020-02-06 19:54 | Emergency (ER) | payer SELFPAY ==
[2020-02-06] MEDS ORDERED: Promethazine 25 MG TAB ONE (20:57)
[2020-02-06] MEDS ORDERED: Promethazine HCl 25 MG/ML VIAL ONE (21:10)
[2020-02-06 21:20] LABS: #Basophils 0.1 thou/uL (0.0-0.2); #Lymphocytes 2.9 thou/uL (1.20-3.40); #Monocytes 0.4 thou/uL (0.11-0.59); %Eosinophils 0.5 % (0.0-10.0); %Lymphocytes 39.2 % (21.0-51.0); %Monocytes 5.7 % (0.0-10.0); %Neutrophils 53.6 % (42.0-75.0); Hemoglobin 14.3 g/dL (12.0-16.0); Mean Corpuscular HGB CONC 34.4 g/dL (32.0-36.0); Mean Corpuscular Hemoglobin 33.5 pg (27.0-31.0); Mean Corpuscular Volume 97.4 fL (78.0-98.0); Mean Platelet Volume 7.1 fL (7.4-10.4); Platelet Count 239 thou/uL (130-400); RBC Distribution Width 12.9 % (11.5-14.5); Red Blood Cell (RBC) Count 4.28 mill/uL (4.20-5.40); White Blood Cell (WBC) Count 7.4 thou/uL (4.8-10.8)
[2020-02-06 21:40] LABS: ALT (SGPT) 100 U/L (8-55); AST (SGOT) 144 U/L (5-34); Albumin 4.2 g/dL (3.5-5.0); Alkaline Phosphatase 113 U/L (40-110); Anion Gap 24 mmol/L (10-20); BUN (Urea Nitrogen) 15 mg/dL (7.0-18.7); Bilirubin, Total 0.5 mg/dL (0.2-1.2); Calc. Creatinine Clearance 0 mL/min (70-130); Calcium 9.2 mg/dL (7.8-10.44); Carbon Dioxide 16 mmol/L (22-29); Chloride 101 mmol/L (98-107); Estimated GFR-MDRD 78; Globulin 3.4 g/dL (2.4-3.5); Glucose 101 mg/dL (70-105); Lipase 27 U/L (8-78); Protein, Total 7.6 g/dL (6.0-8.3); Sodium 137 mmol/L (136-145)
[2020-02-06] MEDS ORDERED: Haloperidol Lactate 5 MG/ML VIAL ONE (23:19)
== END 2020-02-06 23:53 | disposition home or self-care (01) ==
LOC: ERS 19:54
DX: R11.2 Nausea with vomiting, unspecified (principal); I10 Essential (primary) hypertension; E78.5 Hyperlipidemia, unspecified; K76.0 Fatty (change of) liver, not elsewhere classified; F41.9 Anxiety disorder, unspecified; K31.84 Gastroparesis; F32.9 Major depressive disorder, single episode, unspecified; Z87.891 Personal history of nicotine dependence; Z79.899 Other long term (current) drug therapy
CPT/HCPCS: 36415; 80053; 83690; 84484; 85025; 93005; 96361; 96374; 96375; J1630; J2550; Q0169

== ENCOUNTER 2020-02-07 18:27 | Emergency (ER) | payer SELFPAY ==
[2020-02-07] MEDS ORDERED: Promethazine HCl 25 MG/ML VIAL ONE (19:32)
[2020-02-07 19:34] LABS: #Lymphocytes 2.3 thou/uL (1.20-3.40); #Monocytes 0.5 thou/uL (0.11-0.59); #Neutrophils 5.3 thou/uL (1.40-6.50); %Basophils 0.4 % (0.0-1.0); %Eosinophils 0.2 % (0.0-10.0); %Lymphocytes 28.6 % (21.0-51.0); %Neutrophils 64.8 % (42.0-75.0); Hemoglobin 15.3 g/dL (12.0-16.0); Mean Corpuscular HGB CONC 34.8 g/dL (32.0-36.0); Mean Corpuscular Hemoglobin 34.2 pg (27.0-31.0); Mean Corpuscular Volume 98.3 fL (78.0-98.0); Mean Platelet Volume 7.1 fL (7.4-10.4); Platelet Count 192 thou/uL (130-400); RBC Distribution Width 12.7 % (11.5-14.5); Red Blood Cell (RBC) Count 4.49 mill/uL (4.20-5.40); White Blood Cell (WBC) Count 8.1 thou/uL (4.8-10.8)
[2020-02-07 20:09] LABS: ALT (SGPT) 102 U/L (8-55); AST (SGOT) 146 U/L (5-34); Albumin 4.4 g/dL (3.5-5.0); Alkaline Phosphatase 122 U/L (40-110); Anion Gap 18 mmol/L (10-20); BUN (Urea Nitrogen) 4 mg/dL (7.0-18.7); Bilirubin, Total 1.5 mg/dL (0.2-1.2); Calc. Creatinine Clearance 0 mL/min (70-130); Carbon Dioxide 26 mmol/L (22-29); Chloride 93 mmol/L (98-107); Estimated GFR-MDRD 82; Glucose 138 mg/dL (70-105); Lipase 14 U/L (8-78); Magnesium 1.3 mg/dL (1.6-2.6); Protein, Total 8.4 g/dL (6.0-8.3); Sodium 134 mmol/L (136-145)
== END 2020-02-07 21:39 | disposition home or self-care (01) ==
LOC: ERS 18:27
DX: K31.84 Gastroparesis (principal); E87.6 Hypokalemia; I10 Essential (primary) hypertension; E78.5 Hyperlipidemia, unspecified; F41.9 Anxiety disorder, unspecified; F32.9 Major depressive disorder, single episode, unspecified; Z87.891 Personal history of nicotine dependence; Z79.899 Other long term (current) drug therapy
CPT/HCPCS: 80053; 83690; 83735; 85025; 93005; 96361; 96365; 96375; J2550; J3411

== ENCOUNTER 2020-02-24 11:16 | Emergency (ER) | payer SELFPAY ==
[2020-02-24] MEDS ORDERED: Ondansetron PF 4 MG/2 ML Vial ONE (11:29)
[2020-02-24 12:02] LABS: Hemoglobin 14.6 g/dL (12.0-16.0); Mean Corpuscular HGB CONC 33.7 g/dL (32.0-36.0); Mean Corpuscular Hemoglobin 32.9 pg (27.0-31.0); Mean Corpuscular Volume 97.7 fL (78.0-98.0); Mean Platelet Volume 8.6 fL (7.4-10.4); Platelet Count 144 thou/uL (130-400); RBC Distribution Width 13.2 % (11.5-14.5); Red Blood Cell (RBC) Count 4.44 mill/uL (4.20-5.40); White Blood Cell (WBC) Count 5.9 thou/uL (4.8-10.8)
[2020-02-24 12:17] LABS: Band 4 % (5-11); Eosinophils 1 % (0-10); Lymphocytes 22 % (21-51); MDiff Complete? YES; Monocytes 7 % (0-10); Neutrophil 66 % (42-75); Platelet Clumps SLIGHT; Platelet Morphology Comment Appears Adequate; RBC Morphology Normal
[2020-02-24] MEDS ORDERED: Lorazepam 2 MG/ML VIAL ONE (12:31)
[2020-02-24 13:47] LABS: Albumin 3.6 g/dL (3.5-5.0)
[2020-02-24 13:48] LABS: Chloride 97 mmol/L (98-107); Potassium 3.4 mmol/L (3.5-5.1); Sodium 136 mmol/L (136-145)
[2020-02-24 13:49] LABS: Calcium 8.4 mg/dL (7.8-10.44)
[2020-02-24 13:50] LABS: Globulin 3.8 g/dL (2.4-3.5); Glucose 65 mg/dL (70-105); Protein, Total 7.4 g/dL (6.0-8.3)
[2020-02-24 13:51] LABS: Anion Gap 28 mmol/L (10-20); Bilirubin, Total 1.3 mg/dL (0.2-1.2); Carbon Dioxide 14 mmol/L (22-29)
[2020-02-24 13:52] LABS: Alkaline Phosphatase 112 U/L (40-110)
[2020-02-24 13:53] LABS: Calc. Creatinine Clearance 0 mL/min (70-130); Estimated GFR-MDRD 74
[2020-02-24 13:54] LABS: BUN (Urea Nitrogen) 19 mg/dL (7.0-18.7)
[2020-02-24 13:55] LABS: ALT (SGPT) 130 U/L (8-55); AST (SGOT) 211 U/L (5-34)
[2020-02-24 13:56] LABS: CK (CPK) 57 U/L (29-168); Lipase 19 U/L (8-78)
[2020-02-24] MEDS ORDERED: Dextrose 50% Abboject 50 ML SYRINGE ONE (14:09)
[2020-02-26 12:52] LABS: Base Excess-Venous 0.7 mmol/L (-2.0 to 3.0); Bicarbonate (HCO3v) 24.4 mmol/L (22.0-28.0); CO2 Tension (PvCO2) 35.6 mmHg (40.0-50.0); Potassium 3.1 mmol/L (3.5-5.1); vO2 Saturation-calc 99.7 % (60.0-85.0)
[2020-02-26 12:53] LABS: Calcium, Ionized 0.99 mmol/L (1.15-1.33); Chloride 103 mmol/L (98-107); T. Carbon Dioxide 25.5 mmol/L (22.0-28.0)
== END 2020-02-24 15:36 | disposition home or self-care (01) ==
LOC: ERS 11:16
DX: K31.84 Gastroparesis (principal); E86.0 Dehydration; E78.5 Hyperlipidemia, unspecified; F41.9 Anxiety disorder, unspecified; F32.9 Major depressive disorder, single episode, unspecified; Z79.899 Other long term (current) drug therapy
CPT/HCPCS: 36415; 36416; 80053; 82330; 82435; 82550; 82803; 83690; 84132; 84484; 85025; 93005; 96374; 96375; J2060; J2405

== ENCOUNTER 2020-02-28 13:38 | Inpatient (IN) | payer OTHER, SELFPAY ==
[2020-02-28 14:16] LABS: #Lymphocytes 2.5 thou/uL (1.20-3.40); #Monocytes 0.4 thou/uL (0.11-0.59); #Neutrophils 2.5 thou/uL (1.40-6.50); %Basophils 0.5 % (0.0-1.0); %Eosinophils 0.4 % (0.0-10.0); %Lymphocytes 46.1 % (21.0-51.0); %Monocytes 6.4 % (0.0-10.0); %Neutrophils 46.6 % (42.0-75.0); Mean Corpuscular HGB CONC 34.9 g/dL (32.0-36.0); Mean Corpuscular Hemoglobin 35.6 pg (27.0-31.0); Mean Platelet Volume 6.7 fL (7.4-10.4); Platelet Count 159 thou/uL (130-400); RBC Distribution Width 13.2 % (11.5-14.5); Red Blood Cell (RBC) Count 3.94 mill/uL (4.20-5.40); White Blood Cell (WBC) Count 5.4 thou/uL (4.8-10.8)
[2020-02-28 14:18] LABS: Bilirubin Negative (Negative); Blood, Urine Negative (Negative); Clarity Clear (Clear); Glucose, Urine (Dipstick) Normal (Negative); Ketone, Urine Negative (Negative); Leukocyte Negative Leu/uL (Negative); Nitrite Negative (Negative); Protein, Urine (Dipstick) Negative (Neg-Trace); Specific Gravity, Urine 1.013 (1.002-1.036); Urobilinogen Normal mg/dL (Less than 2); pH, Urine 5.5 (5.0-9.0)
[2020-02-28 14:20] LABS: Pregnancy Test - Urine (BHCG) Negative (Negative); Pregu Control Background? CLEAR/WHITE (CLR/WHITE); Pregu Control Bar Appear? YES (CONTROL BAR); Specific Gravity 1.013 (1.002-1.036)
--- NOTE | 2020-02-28 14:28 | RAD ---
Chest one view HISTORY: Syncope. Altered mental status. COMPARISON: 03/23/2019. FINDINGS: Cardiac silhouette is magnified by projection. Shallow inspiration accentuates pulmonary ma rkings. Mediastinum is midline. No lobar consolidation or evidence of pneumothorax. IMPRESSION : No abnormalities are demonstrated.
[2020-02-28 14:30] LABS: Base Excess-Venous 1.5 mmol/L (-2.0 to 3.0); Bicarbonate (HCO3v) 28.6 mmol/L (22.0-28.0); CO2 Tension (PvCO2) 54.1 mmHg (40.0-50.0); Calcium, Ionized 0.84 mmol/L (1.15-1.33); Chloride 107 mmol/L (98-107); Hemoglobin - Calc 14.6 g/dL (12.0-16.0); Potassium 3.7 mmol/L (3.5-5.1); Sodium 146 mmol/L (138-145); T. Carbon Dioxide 30.3 mmol/L (22.0-28.0); vO2 Saturation-calc 75.6 % (60.0-85.0)
[2020-02-28 14:31] LABS: Amphetamine Not Detected (NotDetected); Barbiturates Screen Not Detected (NotDetected); Benzodiazepine Screen Detected (NotDetected); Cocaine Metabolite Screen Not Detected (NotDetected); Medtox Control Line Valid? VALID (VALID); Medtox Reader # READER 1; Methadone Not Detected (NotDetected); Methamphetamine Not Detected (NotDetected); Opiate Screen Not Detected (NotDetected); Oxycodone Screen Not Detected (NotDetected); Phencyclidine (PCP) Not Detected (NotDetected); THC/Cannabinoid Screen Not Detected (NotDetected); Tricyclic Screen Not Detected (NotDetected)
[2020-02-28 14:32] LABS: Acetaminophen Less than 6.0 mcg/mL (10.0-30.0); Salicylate Less than 8.0 mg/dL (15.0-30.0)
[2020-02-28 14:37] LABS: Alcohol 468 mg/dL (Less than 10)
[2020-02-28 14:40] LABS: ALT (SGPT) 106 U/L (8-55); AST (SGOT) 139 U/L (5-34); Albumin 3.5 g/dL (3.5-5.0); Alcohol 469 mg/dL (Less than 10); Alkaline Phosphatase 94 U/L (40-110); Anion Gap 21 mmol/L (10-20); BUN (Urea Nitrogen) 19 mg/dL (7.0-18.7); Bilirubin, Total 0.3 mg/dL (0.2-1.2); CK (CPK) 76 U/L (29-168); Calc. Creatinine Clearance 0 mL/min (70-130); Calcium 7.7 mg/dL (7.8-10.44); Carbon Dioxide 24 mmol/L (22-29); Chloride 101 mmol/L (98-107); Estimated GFR-MDRD 83; Globulin 3.7 g/dL (2.4-3.5); Glucose 102 mg/dL (70-105); Potassium 4.1 mmol/L (3.5-5.1); Protein, Total 7.2 g/dL (6.0-8.3); Sodium 142 mmol/L (136-145)
--- NOTE | 2020-02-28 14:58 | CT ---
CT head noncontrast HISTORY: Altered mental status. COMPARISON: 04/26/2006. FINDINGS: There is no evidence of acute intracranial hemorrhage or infarct. The ventricles appear nor mal in size, shape and position. There is no mass effect or shift of midline structures. Visualized paranasal sinuses remain well aerated. IMPRESSION : No abnormalities are demonstrated.
[2020-02-28] MEDS ORDERED: Ondansetron ODT 4 MG TAB PO PRN (15:19)
[2020-02-28] MEDS ORDERED: Diazepam 5 MG TAB PO PRN (15:26)
[2020-02-28] MEDS ORDERED: Diazepam 5 MG TAB PO SCH (15:30)
[2020-02-28] MEDS ORDERED: Thiamine HCl 200 MG/2 ML VIAL IM SCH (15:30)
[2020-02-28 15:38] LABS: Lactic Acid 3.4 mmol/L (0.5-2.2)
--- NOTE | 2020-02-28 16:51 | PDOC.HHP ---
Hospitalist HPI - History of Present Illness Altered mental status History of Present Illness: This is a 50-year-old female patient with a history of chronic alcoholism who was brought in on account of altered mental status. Patient was found by her son this morning. 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 Patient was altered at the time of my evaluation and transfer mother was at her bedside to give the history. Mother notes that she has a strong family history of alcoholism in her father and alcoholism became worse after she had gone through a divorce. She notes no vomiting prior to presentation. At presentation blood alcohol level was 469, she had a mild anion gap metabolic acidosis of 17, lactate was elevated at 3.4, AST elevated at 139 and ALT 106. Osmolar gap was subsequently checked it was 423 with an osmolar gap of 15. Toxicology revealed benzodiazepines in his urine. Beta hydroxybutyrate was 0.11. She was given thiamine in the ED. while in the ED when she became more communicative she expressed to her mother in my presence that she wanted to and go to [facility]. Hospitalist team was consulted for admission, Hospitalist ROS - Review of Systems ROS unobtainable: due to mental status Hospitalist History - Past Medical History Other Medical History: Depression, Gastroparesis, hypertension, alcohol abuse, - Past Surgical History Other Surgical History: Cholecystectomy, appendectomy, . - Family History Other Family History: Alcoholism - Social History Alcohol: reports: Heavy Living Situation: Alone Activity level: independent ambulation - Exam General - other findings: Patient in bed, confused. ENT: normocephalic atraumatic, no oropharyngeal lesions, moist mucosa Heart: RRR, no gallops, normal peripheral pulses Respiratory: no wheezes, no rales, no ronchi, no tachypnea Gastrointestinal: soft, non-tender, non-distended, normal bowel sounds Extremities: no cyanosis, no clubbing, no edema Neurological - other findings: Spontaneous movement of all extremities. Communicative but confused Psychiatric: A&O x 3 Psychiatric - other findings: Oriented to self. Hospitalist Results - Labs Result Diagrams: 02/28/20 14:08 02/28/20 21:46 Lab results: WBC 5.4 thou/uL (4.8-10.8) 02/28/20 14:08 Hgb 14.0 g/dL (12.0-16.0) 02/28/20 14:08 Hct 40.2 % (36.0-47.0) 02/28/20 14:08 MCV 102.0 fL (78.0-98.0) H 02/28/20 14:08 Plt Count 159 thou/uL (130-400) 02/28/20 14:08 Neutrophils % 46.6 % (42.0-75.0) 02/28/20 14:08 VBG pCO2 54.1 mmHg (40.0-50.0) H 02/28/20 14:31 VBG pO2 44.1 mmHg (35.0-45.0) 02/28/20 14:31 Sodium 142 mmol/L (136-145) 02/28/20 14:08 Potassium 4.1 mmol/L (3.5-5.1) 02/28/20 14:08 Chloride 101 mmol/L (98-107) 02/28/20 14:08 Carbon Dioxide 24 mmol/L (22-29) 02/28/20 14:08 BUN 19 mg/dL (7.0-18.7) H 02/28/20 14:08 Creatinine 0.74 mg/dL (0.6-1.1) 02/28/20 14:08 Glucose 102 mg/dL (70-105) 02/28/20 14:08 Lactic Acid 3.4 mmol/L (0.5-2.2) H 02/28/20 15:14 Calcium 7.7 mg/dL (7.8-10.44) L 02/28/20 14:08 Total Bilirubin 0.3 mg/dL (0.2-1.2) 02/28/20 14:08 AST 139 U/L (5-34) H 02/28/20 14:08 ALT 106 U/L (8-55) H 02/28/20 14:08 Alkaline Phosphatase 94 U/L (40-110) 02/28/20 14:08 Creatine Kinase 76 U/L (29-168) 02/28/20 14:08 Serum Total Protein 7.2 g/dL (6.0-8.3) 02/28/20 14:08 Albumin 3.5 g/dL (3.5-5.0) 02/28/20 14:08 Urine Ketones Negative mg/dL (Negative) 02/28/20 14:00 Urine Blood Negative (Negative) 02/28/20 14:00 Urine Nitrite Negative (Negative) 02/28/20 14:00 Ur Leukocyte Esterase Negative [place]/uL (Negative) 02/28/20 14:00 Hospitalist H&P A/P - Plan Plan: This is a 50-year-old female patient with history of chronic alcoholism who presents with altered mental status. She has severe alcohol intoxication and will be admitted to MICU for close monitoring. Poison control was contactedrecommend every 3 BMP for anion gap assessment Also has suicidal ideation so would require a sitter. Acute encephalopathy Secondary to alcohol intoxication She has a banana bag creatininewe will continue ASE protocol Fall precautions Close monitoring. Suicidal ideation Depression/alcoholism. We will get a sitter Restart antidepressant once able to take orally MR evaluation prior to dischargestable Metabolic acidosis Anion gap elevated at 17 Osmolar gap15 Unclear whether toxic alcohols including Nephrology consulted. Continue IV fluid rehydration. Hypertension Blood pressure stable Close monitoring DVT prophylaxisSCD
[2020-02-28 17:05] LABS: Anion Gap 19 mmol/L (10-20); BUN (Urea Nitrogen) 18 mg/dL (7.0-18.7); Calc. Creatinine Clearance 0 mL/min (70-130); Calcium 7.6 mg/dL (7.8-10.44); Carbon Dioxide 25 mmol/L (22-29); Chloride 103 mmol/L (98-107); Estimated GFR-MDRD 81; Glucose 96 mg/dL (70-105); Sodium 143 mmol/L (136-145)
[2020-02-28 17:38] VITALS: BMI 29.5
[2020-02-28 18:29] LABS: Anion Gap 21 mmol/L (10-20); BUN (Urea Nitrogen) 18 mg/dL (7.0-18.7); Calc. Creatinine Clearance 126 mL/min (70-130); Calcium 7.4 mg/dL (7.8-10.44); Carbon Dioxide 20 mmol/L (22-29); Chloride 105 mmol/L (98-107); Estimated GFR-MDRD 89; Glucose 95 mg/dL (70-105); Potassium 4.1 mmol/L (3.5-5.1); Sodium 142 mmol/L (136-145)
--- NOTE | 2020-02-28 18:34 | CON ---
DATE OF CONSULTATION: REASON FOR CONSULTATION: Elevated osmolal gap. 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 The patient at this time denies any nausea, vomiting, or chest pain. I was consulted for the osmolar gap of 15. PAST MEDICAL HISTORY: Significant for depression, alcohol abuse, gastroparesis, tardive dyskinesia, cholecystectomy, appendectomy, , alcohol abuse. as noted above. ALLERGIES: REVIEWED. HOME MEDICATIONS: List reviewed. HOSPITAL MEDICATIONS: List reviewed. REVIEW OF SYSTEMS: A 15-point review of systems was performed, negative except for positives noted above. HEENT: Eyes intact, no diplopia. Ears: No hearing loss or earache. Nose: No discharge or bleeding. Chest: No cough or phlegm. Abdomen: No nausea or vomiting. Genitourinary: No hematuria. No Miller catheter. Musculoskeletal: No low back pain. No joint swelling or pain. Neurological: No syncope. No seizures. Skin: No complaints of rash or itching. Psychiatric: No depression. Constitutional: No weight loss or loss of appetite. PHYSICAL EXAMINATION: GENERAL: The patient is awake and alert. VITAL SIGNS: Afebrile, pulse 75, breathing at 16, blood pressure 130/70. HEENT: Head normocephalic and atraumatic. Eyes intact, no ulcers. Nose intact, no ulcers. Ears intact, no ulcers. Neck: Supple. No JVD. Chest: Symmetrical and clear. Cardiovascular: Shows S1 and S2, no rub, no murmur. Gastrointestinal: Abdomen is soft, bowel sounds positive. Extremities: Show no edema or ulcers. Skin: Shows no rash or petechiae. Musculoskeletal: Shows no joint swelling or stiffness. Genitourinary: Shows no Miller or CVA tenderness. Neurologic: The patient is awake, alert, and oriented and has tardive dyskinesia symptoms. LABORATORY DATA: Labs show sodium 143, creatinine 0.7. PH was 7.3. Urine did not show any crystals. Serum alcohol level was 468. ASSESSMENT AND RECOMMENDATION: 1. Alcohol ingestion with no acidosis, but an elevated osmolar gap. Offered the patient renal replacement therapy. Risks versus benefits were discussed with the patient and her mother. The patient declined. 2. Alcohol abuse. Recommended Social consultation. If the patient changes her mind, I should be contacted immediately. Job ID: [id number]
[2020-02-28] MEDS: Ondansetron PF 4 MG/2 ML Vial IVP PRN (20:20)
[2020-02-28 22:09] LABS: Lactic Acid 3.2 mmol/L (0.5-2.2)
[2020-02-28 22:13] LABS: Anion Gap 22 mmol/L (10-20); BUN (Urea Nitrogen) 18 mg/dL (7.0-18.7); Calc. Creatinine Clearance 131 mL/min (70-130); Calcium 7.3 mg/dL (7.8-10.44); Carbon Dioxide 20 mmol/L (22-29); Chloride 103 mmol/L (98-107); Estimated GFR-MDRD Greater than 90; Glucose 92 mg/dL (70-105); Potassium 3.8 mmol/L (3.5-5.1); Sodium 141 mmol/L (136-145)
[2020-02-29] MEDS: Ondansetron PF 4 MG/2 ML Vial IVP PRN ×4 (02:27→22:04)
[2020-02-29] MEDS: Sodium Chloride 0.9% 1,000 ML IV SCH ×3 (02:44→19:56)
[2020-02-29 03:50] LABS: #Basophils 0.1 thou/uL (0.0-0.2); #Lymphocytes 2.6 thou/uL (1.20-3.40); #Monocytes 0.4 thou/uL (0.11-0.59); #Neutrophils 3.5 thou/uL (1.40-6.50); %Basophils 0.8 % (0.0-1.0); %Eosinophils 0.3 % (0.0-10.0); %Monocytes 6.3 % (0.0-10.0); %Neutrophils 52.6 % (42.0-75.0); Hemoglobin 11.8 g/dL (12.0-16.0); Mean Corpuscular HGB CONC 34.5 g/dL (32.0-36.0); Mean Corpuscular Hemoglobin 34.5 pg (27.0-31.0); Mean Corpuscular Volume 99.9 fL (78.0-98.0); Mean Platelet Volume 7.7 fL (7.4-10.4); Platelet Count 129 thou/uL (130-400); RBC Distribution Width 13.2 % (11.5-14.5); Red Blood Cell (RBC) Count 3.42 mill/uL (4.20-5.40); White Blood Cell (WBC) Count 6.6 thou/uL (4.8-10.8)
[2020-02-29 04:00] LABS: Anion Gap 23 mmol/L (10-20); BUN (Urea Nitrogen) 17 mg/dL (7.0-18.7); Calc. Creatinine Clearance 138 mL/min (70-130); Carbon Dioxide 16 mmol/L (22-29); Chloride 102 mmol/L (98-107); Estimated GFR-MDRD Greater than 90; Glucose 83 mg/dL (70-105); Sodium 137 mmol/L (136-145)
[2020-02-29] MEDS: Promethazine HCl 25 MG SUPP PR PRN ×2 (05:27→19:56)
[2020-02-29] MEDS: Thiamine 100 MG TAB PO SCH (08:16)
[2020-02-29] MEDS: Folic Acid 1 MG TAB PO SCH (08:16)
[2020-02-29] MEDS: Magnesium Oxide 400 MG TAB PO SCH (08:16)
[2020-02-29] MEDS: Multivitamin W/ Minerals 1 TAB PO SCH (08:16)
[2020-02-29] MEDS: Diazepam 5 MG TAB PO PRN ×3 (08:17→22:03)
[2020-02-29] MEDS ORDERED: FLU VACC QS2020-21(6MOS UP)/PF 60 MCG/0.5 ML SYRINGE IM ONE (09:00)
[2020-02-29] MEDS: Multivitamins, Adult 10 ML, Thiamine HCl 100 MG, Folic Acid 1 MG in Dextrose 5 %-0.45 %... IV SCH (09:17)
--- NOTE | 2020-02-29 11:35 | PDOC.HOSPP ---
- Subjective Encounter Date: 02/29/20 Encounter Time: 11:32 Subjective: Patient was seen and examined in bed. He felt much better today and was more communicative. She complained of nausea and dryness in her mouth. She otherwise denies any chest pain or shortness of breath. - Objective Vital Signs & Weight: Vital Signs (12 hours) Temp BP 02/29/20 11:28 97.8 F 02/29/20 08:00 138/83 02/29/20 07:27 97.2 F L 02/29/20 04:00 140/90 02/29/20 00:00 116/79 Weight Weight 187 lb 2 oz Most Recent Monitor Data Heart Rate from ECG 85 NIBP 139/85 NIBP BP-Mean 103 Respiration from ECG 18 SpO2 100 I&O: 02/28/20 02/29/20 03/01/20 06:59 06:59 06:59 Intake Total 1586 Output Total 675 Balance 911 Result Diagrams: 02/29/20 03:21 02/29/20 03:21 Hospitalist ROS - Medication Medications: Active Medications Generic Name Dose Route Start Last Admin Trade Name Freq PRN Reason Stop Dose Admin Diazepam 5 mg 02/29/20 04:00 02/29/20 08:17 Diazepam 5 Mg Tab PO 5 mg Q4H PRN Administration FOR ASE 10 OR GREATER Folic Acid 1 mg 02/29/20 09:00 02/29/20 08:16 Folic Acid 1 Mg Tab PO 1 mg DAILY CARLITA Administration Multivitamins 10 ml/ Thiamine 1,011.2 mls @ 125 mls/hr 02/29/20 09:00 02/29/20 09:17 HCl 100 mg/ Folic Acid 1 mg/ IV 1,011.2 mls Dextrose/Sodium Chloride DAILY CARLITA Administration Sodium Chloride 1,000 mls @ 125 mls/hr 02/29/20 02:45 02/29/20 02:44 Normal Saline 0.9% IV 1,000 mls .Q8H CARLITA Administration Iron/Minerals/Multivitamins 1 tab 02/29/20 09:00 02/29/20 08:16 Multivitamin W/ Minerals 1 Tab PO 1 tab DAILY CARLITA Administration Magnesium Oxide 400 mg 02/29/20 09:00 02/29/20 08:16 Magnesium Oxide 400 Mg Tab PO 400 mg DAILY CARLITA Administration Ondansetron HCl 4 mg 02/28/20 15:19 02/29/20 09:33 Ondansetron Pf 4 Mg/2 Ml Vial IVP 4 mg Q6H PRN Administration Nausea/Vomiting Promethazine HCl 25 mg 02/29/20 04:43 02/29/20 05:27 Promethazine Hcl 25 Mg Supp GA 25 mg BID PRN Administration Nausea Thiamine HCl 100 mg 02/29/20 09:00 02/29/20 08:16 Thiamine 100 Mg Tab PO 100 mg DAILY CARLITA Administration - Exam General Appearance: awake alert Heart: RRR, no murmur, no gallops, normal peripheral pulses Respiratory: no wheezes, no rales, no ronchi, normal chest expansion Gastrointestinal: soft, non-tender, non-distended, normal bowel sounds Neurological: cranial nerve grossly intact Psychiatric: A&O x 3 Hosp A/P - Plan 50-year-old female patient with a history of alcoholism admitted on account of acute alcohol intoxication. She was monitored in the MICU overnight and she significantly improved. She will be transferred out to the medical floor today. Acute encephalopathy secondary to alcohol intoxication. Significantly improved Transfer out of MICU today. Continue monitoring. Lactic acidosis Lactate increased from 3.2-4.3 today in spite of improvement conditions. Unclear source at the moment. We will increase fluids to a total of 125 mils per hour Trend lactate Check blood cultures.No antibiotics for now Anion gap metabolic acidosis with increased osmolar gap Initial concerns for toxic alcohol consumption Nephrology evaluatedpatient refused any dialysis We will keep monitoringappreciate nephrology input. Suicidal ideation Sitter in place But has not experienced any more suicidal ideation any so far. Continue monitoring MR evaluation prior to discharge. Next Hypertension Blood pressure stable Continue monitoring. VT prophylaxisSCD
--- NOTE | 2020-02-29 12:49 | PRG ---
DATE OF SERVICE: 02/29/2020 SUBJECTIVE: A 50-year-old female, being seen for possible alcohol intoxication. The patient denies any nausea, vomiting, or chest pain. PHYSICAL EXAMINATION: GENERAL: The patient is awake and alert. VITAL SIGNS: Afebrile, pulse 75, breathing at 16, blood pressure 139/85. HEENT: Head normocephalic and atraumatic. Eyes intact, no ulcers. Nose intact, no ulcers. Ears intact, no ulcers. NECK: Supple. No JVD. CHEST: Symmetrical and clear. CARDIOVASCULAR: Shows S1 and S2, no rub, no murmur. GASTROINTESTINAL: Abdomen is soft, bowel sounds positive. EXTREMITIES: Show no edema or ulcers. SKIN: Shows no rash or petechiae. MUSCULOSKELETAL: Shows no joint swelling or stiffness. GENITOURINARY: Shows no Miller or CVA tenderness. NEUROLOGIC: Motor intact. Cranial nerves intact. LABORATORY DATA: Labs show creatinine 0.6. Serum osmolality has decreased to 330 from . ASSESSMENT AND RECOMMENDATIONS: 1. Acute kidney injury, not present. 2. Elevated osmolal gap, improved. 3. Lactic acidosis, evaluation and workup per primary team to evaluate etiology. No indication for dialysis today. Dialysis was offered yesterday, the patient refused. I will sign off on this patient. Please reconsult as needed. Job ID: [id number]
[2020-02-29 13:09] LABS: Lactic Acid 4.4 mmol/L (0.5-2.2)
[2020-02-29 14:00] LABS: ALT (SGPT) 90 U/L (8-55); AST (SGOT) 106 U/L (5-34); Albumin 3.5 g/dL (3.5-5.0); Alkaline Phosphatase 99 U/L (40-110); Bilirubin, Direct 0.2 mg/dL (0.1-0.3); Bilirubin, Total 0.7 mg/dL (0.2-1.2); Protein, Total 6.8 g/dL (6.0-8.3)
[2020-02-29 20:23] LABS: Lactic Acid 1.1 mmol/L (0.5-2.2)
[2020-02-29 20:26] LABS: Anion Gap 22 mmol/L (10-20); BUN (Urea Nitrogen) 7 mg/dL (7.0-18.7); Calc. Creatinine Clearance 139 mL/min (70-130); Calcium 7.4 mg/dL (7.8-10.44); Carbon Dioxide 19 mmol/L (22-29); Chloride 95 mmol/L (98-107); Estimated GFR-MDRD Greater than 90; Glucose 109 mg/dL (70-105); Sodium 133 mmol/L (136-145)
[2020-02-29 20:44] LABS: Potassium 2.9 mmol/L (3.5-5.1)
[2020-02-29] MEDS ORDERED: Electrolyte Replacement Protoc 1 EACH EACH FS SCH ×2 (21:00→22:00)
[2020-02-29] MEDS: Potassium Chloride 20 MEQ TAB PO SCH (22:03)
[2020-03-01] MEDS ORDERED: Magnesium 2 GM/50 ML 2 GM in Premix Bag 1 BAG IVPB SCH ×2 (02:15→13:15)
[2020-03-01] MEDS: Potassium Chloride 20 MEQ TAB PO SCH (02:25)
[2020-03-01] MEDS: Sodium Chloride 0.9% 1,000 ML IV SCH ×3 (02:26→21:01)
[2020-03-01] MEDS: Ondansetron PF 4 MG/2 ML Vial IVP PRN ×4 (03:16→22:36)
[2020-03-01] MEDS: Promethazine HCl 25 MG SUPP PR PRN ×2 (06:07→20:53)
[2020-03-01 06:13] LABS: #Lymphocytes 1.8 thou/uL (1.20-3.40); #Monocytes 0.4 thou/uL (0.11-0.59); %Basophils 0.6 % (0.0-1.0); %Eosinophils 0.5 % (0.0-10.0); %Lymphocytes 28.1 % (21.0-51.0); %Monocytes 6.9 % (0.0-10.0); %Neutrophils 63.9 % (42.0-75.0); Hemoglobin 13.4 g/dL (12.0-16.0); Mean Corpuscular HGB CONC 35.1 g/dL (32.0-36.0); Mean Corpuscular Hemoglobin 35.1 pg (27.0-31.0); Mean Corpuscular Volume 99.9 fL (78.0-98.0); Mean Platelet Volume 7.6 fL (7.4-10.4); Platelet Count 111 thou/uL (130-400); Red Blood Cell (RBC) Count 3.83 mill/uL (4.20-5.40); White Blood Cell (WBC) Count 6.3 thou/uL (4.8-10.8)
[2020-03-01 06:34] LABS: Anion Gap 14 mmol/L (10-20); BUN (Urea Nitrogen) Less than 4 mg/dL (7.0-18.7); Calc. Creatinine Clearance 148 mL/min (70-130); Calcium 7.5 mg/dL (7.8-10.44); Carbon Dioxide 25 mmol/L (22-29); Chloride 99 mmol/L (98-107); Estimated GFR-MDRD Greater than 90; Glucose 105 mg/dL (70-105); Potassium 3.1 mmol/L (3.5-5.1); Sodium 135 mmol/L (136-145)
--- NOTE | 2020-03-01 06:38 | CON ---
DATE OF CONSULTATION: HISTORY OF PRESENT ILLNESS: Lily Sanchez is a 50-year-old female who says she drunk a large quantity of vodka and apparently it is unclear what else she took, but history says she took some Germ-x. She says she has a history of gastroparesis, unable to consume much alcohol. She is presently disabled because of a drinking problem. She used to be a nurse at one time. PAST MEDICAL HISTORY: Hypertension, gastroparesis, and alcohol abuse. PAST SURGICAL HISTORY: Cholecystectomy and appendectomy. HOME MEDICATIONS: Include: 1. Celexa 20. 2. Hydroxyzine 25. 3. Phenergan. SOCIAL HISTORY: Tobacco, none. REVIEW OF SYSTEMS: Otherwise, 10-point negative. PHYSICAL EXAMINATION: GENERAL: She is awake, alert, responsive, in no distress. VITAL SIGNS: Temperature 97, blood pressure 143/101, pulse 100, respiratory rate 18. CHEST: No wheezing, no crackles. CARDIAC: Normal S1, S2. No gallops. ABDOMEN: No masses. NEUROLOGIC: She is awake, alert, and responsive. LABORATORY DATA: White count 6000. Lytes normal. Platelet count is 129. Her bicarb was 20. Lactic acid 4.9. Serum osmolality was elevated. Her drug screen is otherwise negative. Alcohol level is 468. ASSESSMENT: Excessive alcohol intake, gastroparesis, encephalopathy. Agree with banana bag, folic acid, supportive care. She can probably be transferred out of the ICU. Continue slow hydration. She needs extensive counseling. Probably, MHR input. Consultation note, 70 minutes, 50% direct patient care. Job ID: [id number]
[2020-03-01] MEDS ORDERED: Potassium Chloride 20 MEQ TAB PO SCH ×2 (08:15→13:30)
[2020-03-01] MEDS: Magnesium Oxide 400 MG TAB PO SCH (09:42)
[2020-03-01] MEDS: Multivitamin W/ Minerals 1 TAB PO SCH (09:42)
[2020-03-01] MEDS: Thiamine 100 MG TAB PO SCH (09:43)
[2020-03-01] MEDS: Folic Acid 1 MG TAB PO SCH (09:43)
[2020-03-01] MEDS: Multivitamins, Adult 10 ML, Thiamine HCl 100 MG, Folic Acid 1 MG in Dextrose 5 %-0.45 %... IV SCH (09:44)
[2020-03-01] MEDS: Diazepam 5 MG TAB PO PRN (10:01)
--- NOTE | 2020-03-01 10:52 | PRG ---
DATE OF SERVICE: 03/01/2020 SUBJECTIVE: This morning, she is awake, alert, and responsive. No shortness of breath. OBJECTIVE: VITAL SIGNS: Temperature 98, pulse 70, respirations 19, sats are 90% on room air, blood pressure 144/95. CHEST: No wheezing. No crackles. CARDIAC: Normal S1, S2 LABORATORY DATA: Unremarkable. Lytes are normal. Potassium is slightly decreased. Liver function slightly elevated. ASSESSMENT: 1. Alcohol abuse. 2. Encephalopathy, improved. PLAN: Pulmonary is going to follow at a distance. She needs inpatient counseling. Job ID: [id number]
[2020-03-01 11:32] LABS: SARS-CoV-2 MS2 Positive; SARS-CoV-2 N Gene Negative; SARS-CoV-2 S Gene Negative; SARS-CoV-2 by NAA Not Detected (NotDetected); SARS-CoV-2 orf1ab Negative
[2020-03-01 12:41] LABS: Anion Gap 13 mmol/L (10-20); BUN (Urea Nitrogen) Less than 4 mg/dL (7.0-18.7); Calc. Creatinine Clearance 127 mL/min (70-130); Calcium 7.9 mg/dL (7.8-10.44); Carbon Dioxide 26 mmol/L (22-29); Chloride 99 mmol/L (98-107); Estimated GFR-MDRD 87; Glucose 141 mg/dL (70-105); Potassium 3.4 mmol/L (3.5-5.1); Sodium 135 mmol/L (136-145)
--- NOTE | 2020-03-01 19:59 | PDOC.HOSPP ---
- Subjective Encounter Date: 03/01/20 Encounter Time: 09:00 Subjective: Patient was seen and examined in bed. Feels much better significant improvement however still having episodes of agitation She denies any chest pain or shortness of breath. She notes generalized weakness as well. - Objective Vital Signs & Weight: Vital Signs (12 hours) Temp Pulse Resp BP BP Pulse Ox 03/01/20 16:00 144/91 H 03/01/20 15:43 99.3 F 90 16 144/91 H 98 03/01/20 12:00 133/88 03/01/20 11:21 98.8 F 86 18 133/88 98 03/01/20 08:00 98 Weight Weight 187 lb 2 oz Most Recent Monitor Data Heart Rate from ECG 93 NIBP 150/104 NIBP BP-Mean 119 Respiration from ECG 23 SpO2 100 I&O: 02/29/20 03/01/20 03/02/20 06:59 06:59 06:59 Intake Total 1586 1425 850 Output Total 675 5475 900 Balance 911 -1400 -50 Result Diagrams: 03/01/20 05:36 03/01/20 12:09 Hospitalist ROS - Medication Medications: Active Medications Generic Name Dose Route Start Last Admin Trade Name Freq PRN Reason Stop Dose Admin Diazepam 5 mg 02/29/20 04:00 03/01/20 10:01 Diazepam 5 Mg Tab PO 5 mg Q4H PRN Administration FOR ASE 10 OR GREATER Folic Acid 1 mg 02/29/20 09:00 03/01/20 09:43 Folic Acid 1 Mg Tab PO 1 mg DAILY CARLITA Administration Multivitamins 10 ml/ Thiamine 1,011.2 mls @ 125 mls/hr 02/29/20 09:00 03/01/20 09:44 HCl 100 mg/ Folic Acid 1 mg/ IV 1,011.2 mls Dextrose/Sodium Chloride DAILY CARLITA Administration Sodium Chloride 1,000 mls @ 125 mls/hr 02/29/20 02:45 03/01/20 13:56 Normal Saline 0.9% IV 1,000 mls .Q8H CARLITA Administration Iron/Minerals/Multivitamins 1 tab 02/29/20 09:00 03/01/20 09:42 Multivitamin W/ Minerals 1 Tab PO 1 tab DAILY CARLITA Administration Magnesium Oxide 400 mg 02/29/20 09:00 03/01/20 09:42 Magnesium Oxide 400 Mg Tab PO 400 mg DAILY CARLITA Administration Ondansetron HCl 4 mg 02/28/20 15:19 03/01/20 15:20 Ondansetron Pf 4 Mg/2 Ml Vial IVP 4 mg Q6H PRN Administration Nausea/Vomiting Promethazine HCl 25 mg 02/29/20 04:43 03/01/20 06:07 Promethazine Hcl 25 Mg Supp ID 25 mg BID PRN Administration Nausea Sodium Chloride 10 ml 03/01/20 09:00 03/01/20 09:44 Flush - Normal Saline 10 Ml Syringe IVF 10 ml Q12HR CARLITA Administration Thiamine HCl 100 mg 02/29/20 09:00 03/01/20 09:43 Thiamine 100 Mg Tab PO 100 mg DAILY CARLITA Administration - Exam General Appearance: awake alert Eye: PERRL, anicteric sclera Heart: RRR, no murmur, no gallops, no rubs Respiratory: no wheezes, no rales, no ronchi, normal chest expansion Gastrointestinal: soft, non-tender, non-distended, normal bowel sounds Neurological: cranial nerve grossly intact Psychiatric: A&O x 3 Hosp A/P - Plan 50-year-old female patient with a history of alcoholism admitted on account of acute alcohol intoxication. She was monitored in the MICU overnight and she significantly improved. Currently on medical floor and doing much better although still having signs of withdrawal Will get PT evaluation today to correct electrolyte imbalances. Possible [facility]MR evaluation tomorrow prior to discharge Acute encephalopathy secondary to alcohol intoxication. Significantly improvedhowever still having episodes of agitation. Transfer out of MICU Continue monitoring. Lactic acidosis Resolved. Continue monitoring. Anion gap metabolic acidosis with increased osmolar gap Resolved Suicidal ideation Sitter still in place MHMR evaluation tomorrow. Hypertension BP stable VT prophylaxisSCD
[2020-03-02] MEDS: Diazepam 5 MG TAB PO PRN ×3 (01:31→12:43)
[2020-03-02 06:08] LABS: Anion Gap 10 mmol/L (10-20); BUN (Urea Nitrogen) Less than 4 mg/dL (7.0-18.7); Calc. Creatinine Clearance 131 mL/min (70-130); Calcium 8.1 mg/dL (7.8-10.44); Carbon Dioxide 27 mmol/L (22-29); Chloride 103 mmol/L (98-107); Estimated GFR-MDRD 90; Glucose 109 mg/dL (70-105); Potassium 3.3 mmol/L (3.5-5.1); Sodium 137 mmol/L (136-145)
[2020-03-02] MEDS: Sodium Chloride 0.9% 1,000 ML IV SCH ×2 (06:12→12:43)
[2020-03-02] MEDS ORDERED: Potassium Chloride 20 MEQ TAB PO SCH (06:45)
[2020-03-02] MEDS: Ondansetron PF 4 MG/2 ML Vial IVP PRN (07:30)
[2020-03-02] MEDS: Folic Acid 1 MG TAB PO SCH (08:27)
[2020-03-02] MEDS: Magnesium Oxide 400 MG TAB PO SCH (08:27)
[2020-03-02] MEDS: Thiamine 100 MG TAB PO SCH (08:27)
[2020-03-02] MEDS: Multivitamin W/ Minerals 1 TAB PO SCH (08:28)
[2020-03-02] MEDS: Multivitamins, Adult 10 ML, Thiamine HCl 100 MG, Folic Acid 1 MG in Dextrose 5 %-0.45 %... IV SCH (10:05)
[2020-03-02 15:57] VITALS: BP 146/99; TEMP 99.2
--- NOTE | 2020-03-03 08:48 | DIS ---
DATE OF ADMISSION: 02/28/2020 DATE OF DISCHARGE: 03/02/2020 DISCHARGE DIAGNOSES: 1. Acute encephalopathy. 2. Alcohol intoxication. 3. Lactic acidosis. 4. Anion gap metabolic acidosis. 5. Suicidal ideation. 6. Hypertension. BRIEF HOSPITAL COURSE: This is a 50-year-old female patient with a history of alcoholism, who was admitted on account of acute alcohol intoxication with blood alcohol of about 400. She was initially unresponsive; however, she regained responsiveness rather quickly. However, on regaining responsiveness, she did express that suicidal. She was admitted and given IV hydration, banana bag, and Nephrology was consulted on account of a high osmolar gap. The patient was seen by Nephrology; however, she did not agree to dialysis. Integrated Program Teacher was consulted, who followed the patient; however, she did not require any further intensive intervention. After a couple of days, the patient generally returned to baseline and was stable. She was managed on alcohol withdrawal protocol. Given her suicidal ideation, [facility] was consulted. She was evaluated prior to discharge. She did not deemed to require outpatient rehabilitation. She was discharged. DISCHARGE PHYSICAL EXAMINATION: GENERAL: The patient is in bed, in no acute distress. CARDIOVASCULAR: S1 and S2 present. No murmurs, gallops, or rubs. RESPIRATORY SYSTEM: Air entry adequate bilaterally. ABDOMEN: Benign. EXTREMITIES: No edema. CONSULTATIONS: 1. Pulmonology: Dr. Dilip Lemus. 2. Nephrology: Dr. Parish Franklin. DISCHARGE CONDITION: Stable. DISCHARGE DESTINATION: Home. Job ID: [id number]
== END 2020-03-02 17:11 | disposition home or self-care (01) | DRG 917 ==
LOC: ERS 13:38 → IMCU/EMU 14:50 → T4-A 02-29 14:03
PROVIDERS: ADMIT Student in an Organized Health Care Education/Training Program; ATTEND Student in an Organized Health Care Education/Training Program
PROC: HZ2ZZZZ Detoxification Services for Substance Abuse Treatment (ICD-10-PCS; principal; 2020-02-28)
DX: T51.0X1A Toxic effect of ethanol, accidental (unintentional), initial encounter (principal); G93.41 Metabolic encephalopathy; E87.2 Acidosis; R45.851 Suicidal ideations; T49.0X1A Poisoning by local antifungal, anti-infective and anti-inflammatory drugs, accidental (unintentional), initial encounter; Z20.828 Contact with and (suspected) exposure to other viral communicable diseases; F10.229 Alcohol dependence with intoxication, unspecified; Y90.8 Blood alcohol level of 240 mg/100 ml or more; I10 Essential (primary) hypertension; F32.9 Major depressive disorder, single episode, unspecified; K31.84 Gastroparesis; G24.01 Drug induced subacute dyskinesia; Z28.21 Immunization not carried out because of patient refusal; Z90.49 Acquired absence of other specified parts of digestive tract; Z79.899 Other long term (current) drug therapy
CPT/HCPCS: 36415; 70450; 71045; 80048; 80053; 80076; 80306; 80307; 81003; 81025; 82010; 82330; 82550; 82607; 82803; 83605; 83735; 83930; 84443; 85025; 87040; 87635; 93005; J2405; J3411; J3475; J3490; J7042; U0003

== ENCOUNTER 2020-03-12 14:11 | Emergency (ER) | payer SELFPAY ==
[2020-03-12 14:44] LABS: #Basophils 0.1 thou/uL (0.0-0.2); #Lymphocytes 3.1 thou/uL (1.20-3.40); #Monocytes 0.7 thou/uL (0.11-0.59); #Neutrophils 2.8 thou/uL (1.40-6.50); %Basophils 1.2 % (0.0-1.0); %Eosinophils 0.6 % (0.0-10.0); %Lymphocytes 46.1 % (21.0-51.0); %Monocytes 10.6 % (0.0-10.0); %Neutrophils 41.5 % (42.0-75.0); Hemoglobin 13.6 g/dL (12.0-16.0); Mean Corpuscular HGB CONC 34.5 g/dL (32.0-36.0); Mean Corpuscular Hemoglobin 35.3 pg (27.0-31.0); Mean Platelet Volume 6.6 fL (7.4-10.4); Platelet Count 249 thou/uL (130-400); RBC Distribution Width 13.2 % (11.5-14.5); Red Blood Cell (RBC) Count 3.84 mill/uL (4.20-5.40); White Blood Cell (WBC) Count 6.8 thou/uL (4.8-10.8)
[2020-03-12 14:58] LABS: Acetaminophen Less than 6.0 mcg/mL (10.0-30.0); Alcohol 296 mg/dL (Less than 10); Salicylate Less than 8.0 mg/dL (15.0-30.0)
[2020-03-12 15:00] LABS: ALT (SGPT) 66 U/L (8-55); AST (SGOT) 58 U/L (5-34); Albumin 3.7 g/dL (3.5-5.0); Alkaline Phosphatase 89 U/L (40-110); Anion Gap 13 mmol/L (10-20); BUN (Urea Nitrogen) 17 mg/dL (7.0-18.7); Bilirubin, Total 0.2 mg/dL (0.2-1.2); CK (CPK) 49 U/L (29-168); Calc. Creatinine Clearance 0 mL/min (70-130); Calcium 8.4 mg/dL (7.8-10.44); Carbon Dioxide 31 mmol/L (22-29); Chloride 102 mmol/L (98-107); Estimated GFR-MDRD 58; Globulin 3.2 g/dL (2.4-3.5); Glucose 97 mg/dL (70-105); Potassium 4.1 mmol/L (3.5-5.1); Protein, Total 6.9 g/dL (6.0-8.3); Sodium 142 mmol/L (136-145)
[2020-03-12 15:25] LABS: Bilirubin Negative (Negative); Blood, Urine Negative (Negative); Clarity Clear (Clear); Glucose, Urine (Dipstick) Normal (Negative); Ketone, Urine Negative (Negative); Leukocyte Negative Leu/uL (Negative); Nitrite Negative (Negative); Protein, Urine (Dipstick) Negative (Neg-Trace); Specific Gravity, Urine 1.008 (1.002-1.036); Urobilinogen Normal mg/dL (Less than 2)
[2020-03-12 15:35] LABS: Amphetamine Not Detected (NotDetected); Barbiturates Screen Not Detected (NotDetected); Benzodiazepine Screen Detected (NotDetected); Cocaine Metabolite Screen Not Detected (NotDetected); Medtox Control Line Valid? VALID (VALID); Medtox Reader # READER 1; Methadone Not Detected (NotDetected); Methamphetamine Not Detected (NotDetected); Opiate Screen Detected (NotDetected); Oxycodone Screen Not Detected (NotDetected); Phencyclidine (PCP) Not Detected (NotDetected); THC/Cannabinoid Screen Not Detected (NotDetected); Tricyclic Screen Not Detected (NotDetected)
== END 2020-03-12 17:35 | disposition home or self-care (01) ==
LOC: ERS 14:11
DX: F10.229 Alcohol dependence with intoxication, unspecified (principal); Y90.8 Blood alcohol level of 240 mg/100 ml or more; E78.5 Hyperlipidemia, unspecified; F41.9 Anxiety disorder, unspecified; F32.9 Major depressive disorder, single episode, unspecified; K31.84 Gastroparesis; Z79.899 Other long term (current) drug therapy
CPT/HCPCS: 36415; 80053; 80306; 80307; 81003; 82550; 83930; 84443; 85025; 93005

== ENCOUNTER 2020-05-01 04:26 | Observation (INO) | payer SELFPAY ==
[2020-05-01] MEDS ORDERED: Promethazine HCl 25 MG/ML VIAL ONE (04:50)
[2020-05-01 05:26] LABS: #Lymphocytes 1.7 thou/uL (1.20-3.40); #Monocytes 0.6 thou/uL (0.11-0.59); #Neutrophils 5.6 thou/uL (1.40-6.50); %Basophils 0.4 % (0.0-1.0); %Eosinophils 0.2 % (0.0-10.0); %Lymphocytes 21.6 % (21.0-51.0); %Monocytes 7.7 % (0.0-10.0); %Neutrophils 70.1 % (42.0-75.0); Hemoglobin 14.1 g/dL (12.0-16.0); Mean Corpuscular HGB CONC 35.3 g/dL (32.0-36.0); Mean Corpuscular Hemoglobin 34.5 pg (27.0-31.0); Mean Corpuscular Volume 97.8 fL (78.0-98.0); Mean Platelet Volume 7.3 fL (7.4-10.4); Platelet Count 209 thou/uL (130-400); RBC Distribution Width 13.3 % (11.5-14.5); Red Blood Cell (RBC) Count 4.09 mill/uL (4.20-5.40)
[2020-05-01 05:51] LABS: Bacteria/HPF None Seen HPF (None Seen); Bilirubin Negative (Negative); Blood, Urine Negative (Negative); Clarity Clear (Clear); Glucose, Urine (Dipstick) Normal (Negative); Ketone, Urine 10 mg/dL (Negative); Leukocyte Negative Leu/uL (Negative); Mucous/LPF Rare LPF (<2+); Nitrite Negative (Negative); Protein, Urine (Dipstick) 50 mg/dL (Neg-Trace); RBC/HPF 0-3 HPF (0-3); Specific Gravity, Urine 1.034 (1.002-1.036); Squamous Epithelial None Seen HPF (0-3); Urobilinogen Normal mg/dL (Less than 2); WBC/HPF 0-3 HPF (0-3); pH, Urine 5.5 (5.0-9.0)
[2020-05-01 05:51] LABS: ALT (SGPT) 184 U/L (8-55); AST (SGOT) 104 U/L (5-34); Albumin 4.3 g/dL (3.5-5.0); Alcohol 151 mg/dL (Less than 10); Alkaline Phosphatase 103 U/L (40-110); Anion Gap 25 mmol/L (10-20); BUN (Urea Nitrogen) 28 mg/dL (7.0-18.7); Bilirubin, Total 1.4 mg/dL (0.2-1.2); Calc. Creatinine Clearance 0 mL/min (70-130); Calcium 8.5 mg/dL (7.8-10.44); Carbon Dioxide 20 mmol/L (22-29); Chloride 93 mmol/L (98-107); Globulin 4.5 g/dL (2.4-3.5); Glucose 81 mg/dL (70-105); Lipase 46 U/L (8-78); Potassium 4.7 mmol/L (3.5-5.1); Protein, Total 8.8 g/dL (6.0-8.3); Sodium 133 mmol/L (136-145)
[2020-05-01] MEDS ORDERED: Lorazepam 2 MG/ML VIAL ONE (06:11)
[2020-05-01] MEDS ORDERED: Multivitamins, Adult 10 ML, Thiamine HCl 100 MG, Folic Acid 1 MG in Dextrose 5 %-0.45 %... IV SCH (06:30)
[2020-05-01 07:50] VITALS: BMI 29.5
--- NOTE | 2020-05-01 08:40 | RAD ---
PORTABLE CHEST 1 VIEW: Date: 05/01/2020 Time: 0450 hours HISTORY: Chest pain, weakness, nausea, and vomiting. COMPARISON: 02/28/2020. FINDINGS/IMPRESSION: The heart size is normal. The aorta is tortuous. The lungs are expanded without lobar consolidation, pneumothoraces, or pleural effusions. IMPRESSION: No acute process. POS: OFF
--- NOTE | 2020-05-01 08:49 | HP ---
CHIEF COMPLAINT: Vomiting. HISTORY OF PRESENT ILLNESS: Ms. Sanchez is a 50-year-old female with past medical history of alcohol abuse, gastroparesis, hyperlipidemia, and fatty liver, presents to the emergency room with one week of nausea and vomiting. The patient reports intolerance to oral intake during this time. She denies abdominal pain. She has had no fever or diarrhea. She reports normal urine output. She has been suffering from those symptoms for the last 2 years. She was previously diagnosed with gastroparesis. She no longer takes Reglan due to symptoms that she describes like extrapyramidal side effects. In the emergency room in spite of symptomatic management with Phenergan and IV fluids, the patient continues to have vomiting. Lab work; the patient was found to have an alcohol level of 151. The patient does not appear to be intoxicated. Sodium is 133, BUN is 28, chloride is 93, carbon dioxide 20, anion gap is 25, total bilirubin 1.1, protein 8.8, AST , and ALT 184. CBC reviewed. The patient is being admitted to hospital for further management. PAST MEDICAL HISTORY: As mentioned above in the history of present illness. PAST PSYCHIATRIC HISTORY: Anxiety and depression. PAST SURGICAL HISTORY: 1. Cholecystectomy. 2. . 3. Appendectomy. SOCIAL HISTORY: She drinks alcohol. She has a history of alcohol abuse, no smoking history. FAMILY HISTORY: Reviewed and noncontributory. HOME MEDICATIONS: See home medication reconciliation form for updated medications. ALLERGIES: NO KNOWN ALLERGIES. REVIEW OF SYSTEMS: Review of 14 systems negative except what is mentioned in the history of present illness. PHYSICAL EXAMINATION: GENERAL: The patient is awake, alert, in moderate distress. VITAL SIGNS: Blood pressure 163/90, pulse is 88, respiratory rate is 18, temperature 98.6, and oxygen saturation is 98% on room air. HEAD AND NECK: Normocephalic, atraumatic. Neck is supple. No JVD. CHEST: Fair bilateral air entry. HEART: S1, S2. Regular. Tachycardic. ABDOMEN: Soft. Mild epigastric tenderness. Bowel sounds present. NEUROLOGIC: Awake, alert, oriented. No focal deficit. PSYCH: Unable to assess. EXTREMITIES: No clubbing, no cyanosis. GENITOURINARY: No suprapubic tenderness. No flank tenderness. LABORATORY DATA: As mentioned above in the history of present illness. ASSESSMENT: 1. Intractable nausea and vomiting. 2. Chronic alcoholism. 3. Gastroparesis. 4. Elevated anion gap, alcoholic ketoacidosis? PLAN: 1. Admit. 2. Keep n.p.o. 3. IV fluids. 4. Symptomatic management. 5. We will check osmolarity and calculate osmolar gap. 6. Reconcile home medications. 7. DVT prophylaxis as appropriate. 8. Expected length of stay, 1 midnight if the patient is stable and able to tolerate p.o. Job ID: [id number]
[2020-05-01] MEDS: Lorazepam 2 MG/ML VIAL SLOW IVP PRN ×3 (09:18→20:46)
[2020-05-01] MEDS: Famotidine/PF 20 mg/2ml Vial SLOW IVP SCH ×2 (09:31→20:46)
[2020-05-01] MEDS ORDERED: Dextrose 5 %-0.45 % NaCl 1,000 ML IV SCH (09:45)
[2020-05-01 10:19] LABS: Acetaminophen Less than 6.0 mcg/mL (10.0-30.0); Alcohol 68 mg/dL (Less than 10); Magnesium 1.9 mg/dL (1.6-2.6); Salicylate Less than 8.0 mg/dL (15.0-30.0)
[2020-05-01 10:57] LABS: Lactic Acid 2.6 mmol/L (0.5-2.2)
[2020-05-01 13:01] LABS: Amphetamine Not Detected (NotDetected); Barbiturates Screen Not Detected (NotDetected); Benzodiazepine Screen Detected (NotDetected); Cocaine Metabolite Screen Not Detected (NotDetected); Medtox Control Line Valid? VALID (VALID); Medtox Reader # READER 1; Methadone Not Detected (NotDetected); Methamphetamine Not Detected (NotDetected); Opiate Screen Detected (NotDetected); Oxycodone Screen Not Detected (NotDetected); Phencyclidine (PCP) Not Detected (NotDetected); THC/Cannabinoid Screen Not Detected (NotDetected); Tricyclic Screen Not Detected (NotDetected)
[2020-05-01] MEDS: Promethazine HCl 12.5 MG in Sodium Chloride 0.9% 50 ML IVPB PRN ×2 (13:46→21:58)
[2020-05-01] MEDS: Dextrose 5 % And 0.9 % NaCl 1,000 ML IV SCH ×2 (16:13→17:44)
[2020-05-01] MEDS ORDERED: Lorazepam 2 MG/ML VIAL SLOW IVP SCH (16:15)
[2020-05-01 16:21] LABS: SARS-CoV-2 MS2 Positive; SARS-CoV-2 N Gene Negative; SARS-CoV-2 S Gene Negative; SARS-CoV-2 by NAA Not Detected (NotDetected); SARS-CoV-2 orf1ab Negative
--- NOTE | 2020-05-01 16:38 | PDOC.BPN ---
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 Patient had decreased p.o. intake. She denies abdominal pain no fever or diarrhea. Patient has a long standing history of gastroparesis and nausea and vomiting. She does report that she has had some extrapyramidal side effects with Reglan. She is placed on ASE protocol, started on D5NS and given Phenergan for nausea. Patient currently denies chest pain, shortness of breath, abdominal pain. She has a overall she feels well but anxious. During the day patient's ASE scores have been elevated around 8 and she has started to hallucinate. High suspicion for Wernicke's syndrome. Patient was receiving thiamine on ASE protocol, however have started patient on high-dose IV thiamine. No focal deficits on exam. Patient anxious and agitated on exam but is able to tell me her name where she is in the year. We will continue on Ativan per ASE protocol and replete thiamine, B vitamins and magnesium. We will keep patient on every 4 hours neuro checks. Case discussed with attending physician Dr. Sanchez.
[2020-05-02] MEDS: Lorazepam 2 MG/ML VIAL SLOW IVP PRN ×3 (00:53→12:39)
[2020-05-02 05:49] LABS: #Lymphocytes 1.8 thou/uL (1.20-3.40); #Monocytes 0.5 thou/uL (0.11-0.59); #Neutrophils 4.3 thou/uL (1.40-6.50); %Basophils 0.5 % (0.0-1.0); %Eosinophils 0.4 % (0.0-10.0); %Lymphocytes 26.7 % (21.0-51.0); %Monocytes 7.3 % (0.0-10.0); %Neutrophils 65.1 % (42.0-75.0); Hemoglobin 12.5 g/dL (12.0-16.0); Mean Corpuscular HGB CONC 33.5 g/dL (32.0-36.0); Mean Corpuscular Hemoglobin 32.2 pg (27.0-31.0); Mean Corpuscular Volume 96.2 fL (78.0-98.0); Mean Platelet Volume 7.5 fL (7.4-10.4); Platelet Count 133 thou/uL (130-400); RBC Distribution Width 12.9 % (11.5-14.5); Red Blood Cell (RBC) Count 3.87 mill/uL (4.20-5.40); White Blood Cell (WBC) Count 6.6 thou/uL (4.8-10.8)
[2020-05-02 06:13] LABS: ALT (SGPT) 117 U/L (8-55); AST (SGOT) 67 U/L (5-34); Albumin 3.6 g/dL (3.5-5.0); Alkaline Phosphatase 85 U/L (40-110); Anion Gap 17 mmol/L (10-20); BUN (Urea Nitrogen) 9 mg/dL (7.0-18.7); Bilirubin, Total 1.7 mg/dL (0.2-1.2); Calc. Creatinine Clearance 107 mL/min (70-130); Carbon Dioxide 24 mmol/L (22-29); Chloride 96 mmol/L (98-107); Globulin 3.4 g/dL (2.4-3.5); Glucose 106 mg/dL (70-105); Sodium 134 mmol/L (136-145)
[2020-05-02 06:20] LABS: Potassium 2.9 mmol/L (3.5-5.1)
[2020-05-02] MEDS ORDERED: Magnesium Oxide 250 MG TAB PO SCH (09:00)
[2020-05-02] MEDS ORDERED: Cyanocobalamin (Vitamin B-12) 1,000 MCG TAB PO SCH (09:00)
[2020-05-02] MEDS ORDERED: Folic Acid 1 MG TAB PO SCH (09:00)
[2020-05-02] MEDS ORDERED: Magnesium Oxide 400 MG TAB PO SCH (09:00)
[2020-05-02] MEDS: Promethazine HCl 12.5 MG in Sodium Chloride 0.9% 50 ML IVPB PRN (10:02)
[2020-05-02] MEDS: Famotidine/PF 20 mg/2ml Vial SLOW IVP SCH (10:09)
[2020-05-02] MEDS ORDERED: Potassium Chloride 20 MEQ TAB PO SCH (10:45)
[2020-05-02] MEDS ORDERED: Electrolyte Replacement Protocol 1 EACH FS SCH (10:45)
[2020-05-02] MEDS ORDERED: Potassium Chloride 10 MEQ in Premix Bag 1 BAG IVPB SCH (10:45)
[2020-05-02] MEDS ORDERED: OLANZapine 5 MG TAB PO SCH (11:00)
[2020-05-02] MEDS ORDERED: Electrolyte Replacement Protocol FS PRN (11:15)
[2020-05-02] MEDS ORDERED: ALPRAZolam 0.25 MG TAB PO SCH ×2 (11:45→21:00)
[2020-05-02 12:28] VITALS: TEMP 97.2
[2020-05-02 13:12] VITALS: BP 153/86
[2020-05-02 15:42] LABS: Lactic Acid 1.4 mmol/L (0.5-2.2)
[2020-05-02 16:05] LABS: Anion Gap 20 mmol/L (10-20); BUN (Urea Nitrogen) 8 mg/dL (7.0-18.7); Calc. Creatinine Clearance 85 mL/min (70-130); Calcium 8.6 mg/dL (7.8-10.44); Carbon Dioxide 21 mmol/L (22-29); Chloride 98 mmol/L (98-107); Glucose 117 mg/dL (70-105); Potassium 3.4 mmol/L (3.5-5.1); Sodium 136 mmol/L (136-145)
[2020-05-03] MEDS ORDERED: OLANZapine 5 MG TAB PO SCH (09:00)
[2020-05-03] MEDS ORDERED: Potassium Chloride 10 MEQ TAB PO SCH (09:00)
[2020-05-03] MEDS ORDERED: Multivitamin W/ Minerals 1 TAB PO SCH (09:00)
--- NOTE | 2020-05-03 10:18 | PDOC.DS.DS ---
Provider - Provider Date of Admission: 05/01/20 06:10 Date of Discharge: 05/02/20 Admitting Provider: Compa Martinez MD Primary Care Physician: [facility] Course - Hospital Course Hospital Course: Discharge diagnosis 1 nausea vomiting #2 alcohol intoxication Hypokalemia Patient is a very pleasant 50-year-old female who initially presented to the hospital with nausea vomiting. She was noted to have elevated alcohol level. Patient's nausea vomiting improved. She was able to tolerate her meals.Patient up in bed patient was awake oriented x3. Wanted to recheck her labs however she refused and signed out AGAINST MEDICAL ADVICE. She states that she has a alcohol rehab that she is going to check herself into Resuscitation Status: 05/01/20 06:09 Resuscitation Status Routine Resuscitation Status: FULL: Full Resuscitation - Labs Lab Results: 05/02/20 05:28 05/02/20 15:10 Abnormal Lab Results - Last 48 hrs 05/01/20 09:30: Salicylates Less than 8.0 L, Acetaminophen Less than 6.0 L, Plasma Alcohol 68 H 05/01/20 10:08: Lactic Acid 2.6 H 05/01/20 10:08: Vitamin B12 1291 H 05/01/20 12:05: Urine Opiates Screen Detected H, U Benzodiazepines Scrn Detected H 05/02/20 05:27: Sodium 134 L, Potassium 2.9 L*, Chloride 96 L, Total Bilirubin 1.7 H, AST 67 H, ALT 117 H, Albumin/Globulin Ratio 1.1 L 05/02/20 05:28: RBC 3.87 L, MCH 32.2 H 05/02/20 15:10: Potassium 3.4 L, Carbon Dioxide 21 L - Physical Exam Vitals: Weight Weight 182 lb 15.739 oz Physical Exam: The patient was seen and examined on the day of discharge. Plan - Discharge Medications Home Medications: Medication Instructions Recorded Confirmed Type Mv-Mn/Folic AC/Calcium/Vit K1 1 each PO DAILY 03/24/19 05/01/20 History [Women's 50 Plus Daily Formula] ALPRAZolam 0.25 mg PO BID 01/15/20 05/01/20 History Promethazine HCl [Phenergan] 25 mg AR BID #30 supp 01/16/20 05/01/20 Rx Potassium Chloride [K-Dur] 10 meq PO DAILY 02/28/20 05/01/20 History OLANZapine [Zyprexa] 1 tab PO DAILY 05/01/20 05/01/20 History Allergies: No Known Drug Allergies Allergy (Verified 05/01/20 11:27) Per patient - Discharge Instructions Activity:: Activity as Tolerated - Follow up Plan Referrals: [facility] [Primary Care Provider] - Disposition: LEFT AGAINST MEDICAL ADVICE Quality - Care Measures CORE MEASURES:: N/A
== END 2020-05-02 15:52 | disposition left against medical advice (07) ==
LOC: ERS 04:26 → T4-A 06:10
PROVIDERS: ADMIT Internal Medicine; ATTEND Internal Medicine
DX: F10.129 Alcohol abuse with intoxication, unspecified (principal); R11.2 Nausea with vomiting, unspecified; E87.6 Hypokalemia; F41.9 Anxiety disorder, unspecified; F32.9 Major depressive disorder, single episode, unspecified; K31.84 Gastroparesis; Z53.29 Procedure and treatment not carried out because of patient's decision for other reasons; Z79.899 Other long term (current) drug therapy; Z20.828 Contact with and (suspected) exposure to other viral communicable diseases
CPT/HCPCS: 36415; 51701; 71045; 80053; 80306; 80307; 81003; 81015; 82607; 82746; 83605; 83690; 83735; 83930; 84425; 84443; 84484; 85025; 87635; 93005; 96365; 96366; 96367; 96375; 96376; G0378; J2060; J2550; J3411; J3480; J7042; S0028; U0003

== ENCOUNTER 2024-12-31 12:24 | Emergency (ER) | payer OTHER ==
[2024-12-31 14:30] LABS: #Basophils 0.06 10x3/uL (0.0-0.2); #Eosinophils Less than 0.03 10x3/uL (0.0-0.7); #Monocytes 1.18 10x3/uL (0.11-0.59); #Neutrophils 13.00 10x3/uL (1.40-6.50); %Basophils 0.3 % (0.0-1.0); %Eosinophils 0.1 % (0.0-10.0); %Lymphocytes 16.9 % (21.0-51.0); %Monocytes 6.8 % (0.0-10.0); %Neutrophils 75.4 % (42.0-75.0); Hematocrit 44.5 % (36.0-47.0); Hemoglobin 14.7 g/dL (12.0-16.0); Mean Corpuscular Hemoglobin 30.9 pg (27.0-31.0); Mean Corpuscular Volume 93.7 fL (78.0-98.0); Platelet Count 328 10x3/uL (130-400); Red Blood Cell (RBC) Count 4.75 mill/uL (4.20-5.40); White Blood Cell (WBC) Count 17.25 10x3/uL (4.8-10.8)
[2024-12-31 14:45] LABS: ALT (SGPT) 55 U/L (Less than 34); AST (SGOT) 25 U/L (11-34); Albumin 4.6 g/dL (3.1-4.5); Alkaline Phosphatase 126 U/L (40-110); Anion Gap 17 mmol/L (10-20); BUN (Urea Nitrogen) 13 mg/dL (9.8-20.1); Bilirubin, Total 0.6 mg/dL (0.3-1.2); Calc. Creatinine Clearance 0 mL/min (70-130); Calcium 10.1 mg/dL (7.8-10.44); Carbon Dioxide 26 mmol/L (22-29); Chloride 102 mmol/L (98-107); Globulin 3.9 g/dL (2.4-3.5); Glucose 108 mg/dL (70-105); Potassium 3.8 mmol/L (3.5-5.1); Sodium 141 mmol/L (136-145)
== END 2024-12-31 15:23 | disposition home or self-care (01) ==
LOC: ERS 12:24
DX: F43.11 Post-traumatic stress disorder, acute (principal); K31.84 Gastroparesis; X58.XXXA Exposure to other specified factors, initial encounter
CPT/HCPCS: 36415; 80053; 84484; 85025; 96374; J3360; Q0162